=== PATIENT | female | born 1935 | race Caucasian/White ===

== ENCOUNTER 2022-08-19 10:41 | Outpatient (CLI) | payer MEDICARE, BC, SELFPAY ==
[2022-08-19 11:02] LABS: Albumin* 4.9 g/dL (3.3-5.0); Chloride* 116 mmol/L (96-114)
[2022-08-19 11:03] LABS: Potassium* 5.9 mmol/L (3.6-5.1); Sodium* 142 mmol/L (135-149)
[2022-08-19 11:05] LABS: Bilirubin Total* 0.6 mg/dL (0.1-1.5); Carbon Dioxide* 15 mmol/L (20-32); Cholesterol* 141 mg/dL (90-199); Creatinine* 2.3 mg/dL (0.5-1.5); Estimated Glomerular Filt Rate 20 ml/min
[2022-08-19 11:06] LABS: Alanine Aminotransferase* 17 U/L (4-35); Alkaline Phosphatase* 88 U/L (40-150); Aspartate Amino Transferase* 21 U/L (12-35); Blood Urea Nitrogen* 32 mg/dL (7-30); Calcium* 9.5 mg/dL (8.4-10.6); Glucose* 101 mg/dL (60-115); HDL Cholesterol* 70 mg/dL (>=50); LDL Cholesterol Calculated 51 mg/dL (<100); Total Protein* 7.6 g/dL (6.0-8.3); Triglycerides* 100 mg/dL (40-149)
[2022-08-19 12:00] LABS: Microalbumin Creatinine Ratio 300 mg/g (0-30); Microalbumin Urine 64 mg/dL
== END 2022-08-19 10:42 | disposition home or self-care (01) ==
PROVIDERS: PCP Internal Medicine; Visit Provider Internal Medicine
DX: E11.9 Type 2 diabetes mellitus without complications (principal); N18.30 Chronic kidney disease, stage 3 unspecified; E78.5 Hyperlipidemia, unspecified; I10 Essential (primary) hypertension; R07.89 Other chest pain
CPT/HCPCS: 80053; 80061; 82043; 82570

== ENCOUNTER 2022-11-20 10:02 | Outpatient (CLI) | payer MEDICARE, BC, SELFPAY | END 2022-11-20 10:03 | disposition home or self-care (01) | LOC: NFLDREF 11-21 01:33 | PROVIDERS: PCP Internal Medicine; Referring Provider Internal Medicine; Visit Provider Internal Medicine | DX: E11.9 Type 2 diabetes mellitus without complications (principal); N18.30 Chronic kidney disease, stage 3 unspecified | CPT/HCPCS: 80048 ==

== ENCOUNTER 2023-08-14 10:07 | Outpatient (CLI) | payer MEDICARE, BC, SELFPAY ==
--- OUTSIDE RECORDS SUMMARY | 2023-08-20 09:30 | XMS_ITS | Clinical Summary ---
Author Name Unknown Organization [facility] Address [place], [place] [address] Care Team Providers Care Glue Mounter Operator Name Role Phone Aishwarya Hager MD Primary Care Provider [phone]- [phone] Social History Tobacco Use Types Packs/Day Years [...] Influenza for age 65+ 04/10/2023 Care Teams Glue Mounter Operator Relationship Specialty Start Date End Date Aishwarya Hager MD [address] [place] [address] PCP - General Internal Medicine 05/17/20
== END 2023-08-14 10:08 | disposition home or self-care (01) ==
LOC: NFLDREF 08-20 09:26
PROVIDERS: PCP Internal Medicine; Referring Provider Internal Medicine; Visit Provider Internal Medicine
DX: E11.9 Type 2 diabetes mellitus without complications (principal)
CPT/HCPCS: 80053; 80061; 82043; 82570

== ENCOUNTER 2023-08-18 08:45 | Outpatient (CLI) | payer MEDICARE, BC, SELFPAY ==
--- OUTSIDE RECORDS SUMMARY | 2023-08-20 12:54 | XMS_ITS | Clinical Summary ---
Author Name Unknown Organization [employer] [facility] [facility] Address [place], [place] [address] Care Team Providers Care Farm Loan Representative Name Role Phone Aishwarya Hager MD Primary Care Provider [phone]- [phone] Social History Tobacco Use Types Packs/Day Years [...] Influenza for age 65+ 04/10/2023 Care Teams Farm Loan Representative Relationship Specialty Start Date End Date Aishwarya Hager MD [address] [place] [address] PCP - General Internal Medicine 05/17/20
== END 2023-08-18 08:46 | disposition home or self-care (01) ==
LOC: NFLDREF 08-20 12:52
PROVIDERS: PCP Internal Medicine; Referring Provider Internal Medicine; Visit Provider Internal Medicine
DX: E87.5 Hyperkalemia (principal)
CPT/HCPCS: 84132

== ENCOUNTER 2023-08-19 23:11 | Emergency (ER) | payer MEDICARE, BC, SELFPAY ==
[2023-08-19 23:24] VITALS: BP 194/76; PULSE 57; RESP 16; TEMP 36.3; O2SAT 97; BMI 23.8
[2023-08-19 23:52] VITALS: BP 194/81; PULSE 47; RESP 18; O2SAT 99
[2023-08-20] VITALS (14 sets, daily range): BP systolic 178–185; BP diastolic 73–86; PULSE 46–57; RESP 18; O2SAT 98–100
--- NOTE | 2023-08-20 00:04 | ED_ITS ---
HPI - Chest Pain General Time Seen by Provider: 00:04 Date Seen: 08/20/23 Chief Complaint: Chest Pain Stated Complaint: Chest pain Time Seen by Provider: 08/20/23 00:04 Source: patient, RN notes reviewed and old records reviewed Mode of arrival: ambulatory Limitations: no limitations History of Present Illness HPI narrative: Cintia is a very pleasant 87-year-old female with history of stage 3 chronic kidney disease, type 2 diabetes, hyperlipidemia and hypertension who comes to the emergency room for evaluation of chest pain And elevated blood pressure. Patient notes that on ThursdayAugust 14 she was taken off 2 separate medications because of an elevated potassium of 6.1. She was not seen by a physician at that time but was notified by a nurse in our system. On August 18 she was supposed to follow-up with a recheck of her blood work at which time her potassium was improved. Patient notes that ThursdayAugust 18 was a good day and she states that she had felt better. Previous to that she notes that she was not feeling very well with a foggy feeling fine. However last evening ThursdayAugust 19 she had the onset of intermittent chest discomfort. She describes the pain in the middle of her chest and she describes it as a pinching feeling. She took 3 nitroglycerin tablets at home and it was not until the 3rd tablet that she felt better. She did take her blood pressure after the initial nitroglycerin tablet and it was a systolic around 200. She states that she did have this discomfort while she was in the ER and it lasted about 20 minutes. She does not have that discomfort at this time. Patient denies shortness of breath, headache, abdominal pain nausea or vomiting with this discomfort. She was able to walk in her apartment and the pain did not increase. Pain does not radiate to her back. Upon arrival here the emergency room blood pressure was 190s Patient also describes sudden improvement in her chronic diarrhea. States that she has been using Pepto-Bismol as needed. Also notes that her blood pressure was elevated when she saw Dr. Amado last in June. Medications discontinued include spironolactone and losartan. Patient denies cough cold congestion, recent illness or any trauma. I do ascertain that patient has not recently seen a physician but was contacted by nursing staff on ThursdayAugust 14 in regards to elevated potassium. Visit on August 18 was also just a lab draw with follow-up phone call. Patient has an appointment tomorrow morning at 1020 with her primary MD. Related Data Home Medications Medication Instructions Recorded Confirmed aspirin 81 mg capsule 81 mg PO .3 x Wk 08/19/22 04/23/23 bismuth subsalicylate 525 mg tablet 525 mg PO Q30M PRN 04/23/23 04/23/23 Previous Rx's Medication Instructions Recorded atenolol 25 mg tablet 25 mg PO QDAY #90 tabs 08/19/22 nitroglycerin 0.4 mg sublingual 0.4 mg sublingual Q5M PRN chest 08/19/22 tablet pain #25 tabs simvastatin 20 mg tablet 20 mg PO QHS #90 tabs 08/19/22 isosorbide mononitrate 60 mg 120 mg (2 x 60 mg) PO QDAY #180 08/05/23 tablet,extended release 24 hr tabs Allergies Allergy/AdvReac Type Severity Reaction Status Date / Time Sulfa (Sulfonamide Allergy Intermediate tachycardia Verified 04/23/23 09:24 Antibiotics) sulfamethoxazole Allergy Intermediate tachycardia Verified 04/23/23 09:24 trimethoprim Allergy Intermediate tachycardia Verified 04/23/23 09:24 amlodipine Allergy Mild Cough Verified 04/23/23 09:24 pseudoephedrine Allergy Mild Unknown Verified 04/23/23 09:24 Review of Systems Status of ROS Reports: 10 or more systems reviewed and unremarkable except as noted in History and below Const Denies: fever or chills Eyes Denies: blurry vision ENMT Denies: neck pain or difficulty swallowing Cardio Reports: chest pain; Denies: palpitations or shortness of breath with exertion Resp Denies: shortness of breath or cough GI Denies: abdominal pain, nausea, vomiting or difficulty swallowing Denies: painful urination Musculo Denies: back pain or neck pain PFSH PFSH Surgical History History of total abdominal hysterectomy and bilateral salpingo-oophorectomy (08/22/11) ?Z90.710 - Acquired absence of both cervix and uterus (ICD-10) ?Z90.722 - Acquired absence of ovaries, bilateral (ICD-10) ?Z90.79 - Acquired absence of other genital organ(s) (ICD-10) History of benign breast biopsy (08/22/11) ?Z98.890 - Other specified postprocedural states (ICD-10) History of appendectomy (08/22/11) ?Z90.49 - Acquired absence of other specified parts of digestive tract (ICD- 10) Social History Smoking Status: Never smoker How often do you have a drink containing alcohol: never AUDIT-C Alcohol total score: 0 Non-prescribed substance use: denies use Little interest or pleasure in doing things: not at all Feeling down, depressed, or hopeless: not at all Exam Narrative Exam Narrative: Patient is alert and oriented. I am somewhat challenged with ascertaining the details of this particular ED visit. Patient is somewhat hopping from t oscar's visit to past medical problems and past ER visits. patient is extremely hard of hearing. EOM is full. Face symmetrical. Speech and mentation normal. Heart with a bradycardic rate but normal rhythm. Systolic murmur 3/6 noted. Decreased breath sounds in the right lung base otherwise clear without any crackles. Abdomen soft nontender. No pulsating mass. Lower extremities with 1+ kwabena pheral edema. Pedal pulses are symmetrical and intact. Moving all extremities. Const Vital Signs, click to edit/add: Vital Signs - 24 hr 08/19/23 23:24 08/19/23 23:52 08/20/23 00:00 Temperature 97.3 F L Pulse Rate 47 L 46 L Pulse Rate [Pulse Oximeter] 57 L Respiratory Rate 16 18 Blood Pressure 194/81 H Blood Pressure [Right Upper Arm] 194/76 H Pulse Oximetry 97 99 99 Oxygen Delivery Method Room Air 08/20/23 00:02 08/20/23 00:02 08/20/23 00:15 Temperature Pulse Rate 48 L 48 L 49 L Pulse Rate [Pulse Oximeter] Respiratory Rate Blood Pressure 185/81 H 185/81 H Blood Pressure [Right Upper Arm] Pulse Oximetry 99 99 99 Oxygen Delivery Method 08/20/23 00:22 08/20/23 00:30 08/20/23 00:41 Temperature Pulse Rate 49 L 50 L 47 L Pulse Rate [Pulse Oximeter] Respiratory Rate Blood Pressure 183/74 H 178/75 H Blood Pressure [Right Upper Arm] Pulse Oximetry 98 100 99 Oxygen Delivery Method 08/20/23 00:45 08/20/23 01:00 08/20/23 01:02 Temperature Pulse Rate 47 L 49 L 46 L Pulse Rate [Pulse Oximeter] Respiratory Rate Blood Pressure 178/73 H Blood Pressure [Right Upper Arm] Pulse Oximetry 98 100 98 Oxygen Delivery Method 08/20/23 01:15 08/20/23 01:32 08/20/23 01:45 Temperature Pulse Rate 49 L 57 L 49 L Pulse Rate [Pulse Oximeter] Respiratory Rate Blood Pressure Blood Pressure [Right Upper Arm] Pulse Oximetry 98 98 99 Oxygen Delivery Method 08/20/23 02:15 08/20/23 03:09 Temperature Pulse Rate Pulse Rate [Pulse Oximeter] 56 L Respiratory Rate 18 18 Blood Pressure 184/86 H Blood Pressure [Right Upper Arm] 184/82 H Pulse Oximetry 99 Oxygen Delivery Method Room Air Documenting provider has reviewed patient's vital signs: yes Course Course ED Course: Differential diagnosis includes but is not limited to angina, acute coronary event, anxiety, hypertension, GERD. IV has been placed in labs were drawn. Will order CBC, comprehensive panel, magnesium, troponin, lipase. Chest x-ray An EKG as well. Reevaluation(s) Reevaluation #1: Patient noted to be pain free. EKG is reassuring this time and initial troponin is negative. Note that proBNP is quite elevated with no previous value for comparison. Potassium is normal at 4.7. Creatinine is 2.4 which is slightly increased from previous values of 2-2.1. Blood pressure continues to be elevated and patient is certainly not a candidate for beta-kori. Will use Lasix 40 mg IV while awaiting chest x-ray and 2nd EKG/troponin. Vital Signs Vital signs: Initial Vital Signs Temperature 97.3 F L 08/19/23 23:24 Temperature Source Temporal Artery Scan 08/19/23 23:24 Pulse Rate 57 L 08/19/23 23:24 Respiratory Rate 16 08/19/23 23:24 Blood Pressure 194/76 H 08/19/23 23:24 Blood Pressure Mean 115 H 08/19/23 23:24 Blood Pressure Position Sitting 08/19/23 23:24 Pulse Oximetry 97 08/19/23 23:24 Oxygen Delivery Method Room Air 08/19/23 23:24 Vital Signs Temperature 97.3 F L 08/19/23 23:24 Pulse Rate 57 L 08/19/23 23:24 Respiratory Rate 16 08/19/23 23:24 Blood Pressure 194/76 H 08/19/23 23:24 Pulse Oximetry 97 08/19/23 23:24 Oxygen Delivery Method Room Air 08/19/23 23:24 Temperature 97.3 F L 08/19/23 23:24 Pulse Rate 56 L 08/20/23 03:09 Respiratory Rate 18 08/20/23 03:09 Blood Pressure 184/82 H 08/20/23 03:09 Pulse Oximetry 99 08/20/23 03:09 Oxygen Delivery Method Room Air 08/20/23 03:09 Medications Administered Medications: Discontinued Medications Generic Name Dose Route Start Last Admin Trade Name Moralesq PRN Reason Stop Dose Admin Furosemide 40 mg 08/20/23 00:56 08/20/23 01:09 Furosemide 10 Mg/Ml Inj IVP 08/20/23 00:57 40 mg ONCE ONE Administration MDM - Chest Pain MDM Narrative Medical decision making narrative: 1. New onset congestive heart failure - proBNP is elevated, patient has lower extremity fluid retention and chest x-ray by my read shows increased evidence of pulmonary congestion. Likely secondary to recent discontinuance of spironolactone and losartan As there is no evidence in change of diet or history of NH with negative troponins. Lasix 40 mg IV is given. patient has urinated at least 3 times and blood pressure now 178 systolic. She has no past history of congestive heart failure. I do not see any recent echocardiogram but that would be something that would be recommended. 2. Hypertension - Blood pressures Have been decreasing to 170s and 184 is our last reading after returning from the bathroom. Patient will need some sort of blood pressure control but this will be challenging as she is bradycardic and were not be able to tolerate beta-kori, has history of chronic renal insufficiency and therefore will be very sensitive to fluid status and has recently had hyperkalemia and was taken off both losartan and spironolactone. 3. Chest pain- Patient has had no chest pain since I initially met her. Troponin negative x2 and EKGs are also reassuring. Chest pain likely secondary to increased blood pressures. Last cardiac consultation was in 2019 4. Chronic kidney disease - creatinine is 2.4. repeat creatinine after 40 mg IV Lasix Is 3.0 with our i-STAT machine. Patient is encouraged with fluids tonight. She has been to the bathroom multiple times. 5. Disposition- initial plan was to potentially admit patient overnight for bloo d pressure management and fluid diuresis. However, we have no beds at the [facility]. Thus, patient state in our emergency room. We were able to diurese her although there has been and elevation of her creatinine. Fortunately, no further chest pain while in the emergency room. Patient does not wish to stay overnight and I did tell her we had no beds available here. I did consider keeping her in the emergency room but she does have follow-up appoint with her primary MD tomorrow. Thus in the ED we did a cardiac rule out, gave 1 dose of IV Lasix, and check lab values. Patient will need to follow-up tomorrow with her primary MD for recheck of creatinine, blood pressure management And scheduling of outpatient echocardiogram. Medical Records Data Attestation: I reviewed the patient's medical records. Lab Data Attestation: I reviewed the patient's lab results. Labs: Lab Results 08/19/23 08/20/23 08/20/23 Range/Units 23:45 00:00 01:51 WBC 5.66 (4.50-11.00) K/uL RBC 3.28 L (4.00-5.20) m/uL Hgb 10.1 L (12.0-16.0) gm/dL Hct 31.2 L (33.0-51.0) % MCV 95 (80-100) fL MCH 31 (26-34) pg MCHC 32 (32-36) gm/dL RDW Coeff of Tyra 13.6 (11.5-15.5) % Plt Count 185 (140-440) K/uL Neut % (Auto) 56.5 (42.0-72.0) % Lymph % (Auto) 30.7 (20-44) % [place] % (Auto) 7.8 (0.0-11.0) % Eos % (Auto) 3.9 (0.0-7.0) % Baso % (Auto) 1.1 (0.0-3.0) % Neut # (Auto) 3.20 (1.7-7.0) K/uL Lymph # (Auto) 1.74 (0.90-2.90) K/uL [place] # (Auto) 0.40 (0.00-0.90) K/UL Eos # (Auto) 0.22 (0.00-0.50) K/uL Baso # (Auto) 0.06 (0.00-0.30) K/uL Abs Immat Gran (auto) 0.00 (0.00-0.30) K/uL Imm/Tot Granulo (auto) 0.0 % Sodium 141 (135-149) mmol/L Potassium 4.7 (3.6-5.1) mmol/L Chloride 113 (96-114) mmol/L Carbon Dioxide 16 L (20-32) mmol/L Anion Gap 12 (7-15) mEq/L BUN 41 H (7-30) mg/dL Creatinine 2.4 H (0.5-1.5) mg/dL Estimated Creat Clear 13.55 Estimated GFR 19 ml/min Glucose 144 H (60-115) mg/dL Calcium 8.5 (8.4-10.6) mg/dL Magnesium 1.6 (1.5-2.6) mg/dL Total Bilirubin 0.5 (0.1-1.5) mg/dL AST 25 (12-35) U/L ALT 21 (4-35) U/L Alkaline Phosphatase 79 (40-150) U/L NT-Pro-B Natriuret Pep 1910 pg/mL Total Protein 7.4 (6.0-8.3) g/dL Albumin 4.4 (3.3-5.0) g/dL Lipase 289 (23-300) U/L POC Creatinine (0.6-1.3) mg/dl POC Troponin I 0.01 0.01 (0.01-0.04) ng/ml 08/20/23 Range/Units 02:00 WBC (4.50-11.00) K/uL RBC (4.00-5.20) m/uL Hgb (12.0-16.0) gm/dL Hct (33.0-51.0) % MCV (80-100) fL MCH (26-34) pg MCHC (32-36) gm/dL RDW Coeff of Tyra (11.5-15.5) % Plt Count (140-440) K/uL Neut % (Auto) (42.0-72.0) % Lymph % (Auto) (20-44) % [place] % (Auto) (0.0-11.0) % Eos % (Auto) (0.0-7.0) % Baso % (Auto) (0.0-3.0) % Neut # (Auto) (1.7-7.0) K/uL Lymph # (Auto) (0.90-2.90) K/uL [place] # (Auto) (0.00-0.90) K/UL Eos # (Auto) (0.00-0.50) K/uL Baso # (Auto) (0.00-0.30) K/uL Abs Immat Gran (auto) (0.00-0.30) K/uL Imm/Tot Granulo (auto) % Sodium (135-149) mmol/L Potassium (3.6-5.1) mmol/L Chloride (96-114) mmol/L Carbon Dioxide (20-32) mmol/L Anion Gap (7-15) mEq/L BUN (7-30) mg/dL Creatinine (0.5-1.5) mg/dL Estimated Creat Clear Estimated GFR ml/min Glucose (60-115) mg/dL Calcium (8.4-10.6) mg/dL Magnesium (1.5-2.6) mg/dL Total Bilirubin (0.1-1.5) mg/dL AST (12-35) U/L ALT (4-35) U/L Alkaline Phosphatase (40-150) U/L NT-Pro-B Natriuret Pep pg/mL Total Protein (6.0-8.3) g/dL Albumin (3.3-5.0) g/dL Lipase (23-300) U/L POC Creatinine 3.0 H (0.6-1.3) mg/dl POC Troponin I (0.01-0.04) ng/ml Imaging Data Chest x-ray: Attestation: I have reviewed the pertinent imaging results. My impression: Increased lung markings consistent with congestive heart failure. Radiologist's impression: Cardiovascular and mediastinum: Cardiomegaly with central pulmonary vascular congestion suggesting the possibility of acute CHF. Lungs and pleural space: Lungs are clear. No sign of infiltrate or mass. No sign of pleural effusion. No pneumothorax. Bones and soft tissues: No acute findings. ECG Data Attestation: I personally reviewed and interpreted this ECG as follows: ECG interpretation date: 08/20/23 Interpretation: EKG by my read shows sinus bradycardia at a rate of 52. I do not note any acute ST or T-wave changes. 1st degree AV block. QT intervals normal. Second EKG by my read shows sinus bradycardia at a rate Unchanged from 1st EKG. I do not have previous EKG available at this time. However looking back at previous visits to the clinic patient has had bradycardia consistent with what we are finding here tonfrancy. Discharge Plan Discharge Clinical Impression: New onset of congestive heart failure Hypertension Qualifiers: Hypertension type: unspecified Qualified Code(s): I10 - Essential (primary) h ypertension Chest pain Qualifiers: Chest pain type: unspecified Qualified Code(s): R07.9 - Chest pain, unspecified Chronic renal failure (CRF), stage 3 (moderate) Qualifiers: Chronic kidney disease stage 3 subtype: unspecified whether 3a or 3b Qualified Code(s): N18.30 - Chronic kidney disease, stage 3 unspecified Patient Disposition: Home, Self-Care Condition: Improved Additional Instructions: tonight your given a medication called Lasix to help with mild fluid overload. Unfortunately, this medication can be hard on your kidneys And he will need further evaluation with an echocardiogram. Follow-up with your primary doctor as scheduled for tomorrow morning at 1020. You will need to be set up for outpatient echocardiogram and will likely need further medications for the control of elevated blood pressure. Fortunately there was no evidence of a heart attack tonight. Your potassium is now normal at 4.7. Your creatinine continues to be elevated at 2.4. I will do my best to contact Dr. Hager tomorrow morning before I leave after my shift. I will fill her in on your visit here los. Return to the emergency room for chest pain, worsening symptoms and as needed. Prescriptions: No Action aspirin 81 mg capsule 81 mg PO .3 x Wk atenolol 25 mg tablet 25 mg PO QDAY Qty: 90 3RF simvastatin 20 mg tablet 20 mg PO QHS Qty: 90 3RF nitroglycerin 0.4 mg tablet, sublingual 0.4 mg sublingual Q5M PRN (Reason: chest pain) Qty: 25 6RF Rx Instructions: do not exceed 3 doses per episode bismuth subsalicylate 525 mg tablet 525 mg PO Q30M PRN Rx Instructions: do not exceed 8 doses in a 24 hour period isosorbide mononitrate 60 mg tablet extended release 24 hr 120 mg PO QDAY Qty: 180 0RF Follow Up/Referrals: Aishwarya Hager MD [Primary Care Provider] - Stand Alone Forms: [facility] Info Instructions
[2023-08-20 00:32] LABS: Basophils Absolute Auto 0.06 K/uL (0.00-0.30); Basophils Percent Auto 1.1 % (0.0-3.0); Eosinophils Absolute Auto 0.22 K/uL (0.00-0.50); Eosinophils Percent Auto 3.9 % (0.0-7.0); Hematocrit 31.2 % (33.0-51.0); Hemoglobin* 10.1 gm/dL (12.0-16.0); Lymphocytes Absolute Auto 1.74 K/uL (0.90-2.90); Lymphocytes Percent Auto 30.7 % (20-44); Mean Corpuscular HGB Conc 32 gm/dL (32-36); Mean Corpuscular Hemoglobin 31 pg (26-34); Mean Corpuscular Volume 95 fL (80-100); Monocytes Percent Auto 7.8 % (0.0-11.0); Neutrophils Percent Auto 56.5 % (42.0-72.0); Platelet Count* 185 K/uL (140-440); RDW Coefficient of Variation % 13.6 % (11.5-15.5); Red Blood Count 3.28 m/uL (4.00-5.20); White Blood Count* 5.66 K/uL (4.50-11.00)
[2023-08-20 00:35] LABS: Albumin* 4.4 g/dL (3.3-5.0); Chloride* 113 mmol/L (96-114)
--- OUTSIDE RECORDS SUMMARY | 2023-08-20 00:35 | XMS_ITS | Clinical Summary ---
Author Name Unknown Organization [facility] [facility] Address [place], [place] [address] Care Team Providers Care Presentation Manager Name Role Phone Aishwarya Hager MD Primary Care Provider [phone]- [phone] Social History Tobacco Use Types Packs/Day Years Used Date Smoking Tobacco: Never Assessed Social Connections Answer Date Recorded Frequency of Communication with Friends and Fami ly Not on file 08/10/2021 Financial Resource Strain Answer Date R ecorded Difficulty of Paying Living Expenses Not on file 08/10/2021 Difficulty of Paying Living Expenses Not on file 08/10/2021 Sex and Gender Information Value Date Recorded Sex Assigned at Not on file Gender Identity Not on file Sexual Orientation Not on file Last Filed Vital Signs Vital Sign Reading Time Taken Comments Blood Pressure 148/70 04/26/2021 4:02 PM CDT Pulse 65 04/26/2021 4:02 PM CDT Temperature - - Respiratory Rate 14 04/26/2021 4:02 PM CDT Oxygen Saturation - - Inhaled Oxygen Concentration - - Weight 75.8 kg (167 lb) 04/26/2021 4:02 PM CDT Height - - Body Mass Index - - Plan of Treatment Health Maintenance Due Date Last Done Comments Tdap 1948 Depression screening for age 12+ 1949 BMI (ht and wt on same day) for age 18+ 11/30/1955 Tetanus booster 1957 Zoster (shingles) series for age 50+ (1 of 2) 11/30/1987 DEXA/DXA scan for age 65+ 2002 Medicare Wellness for age 65+ 2002 Pneumococcal series for age 65+ (1 of 1 - PCV) 2002 COVID-19 vaccine series ( season) 2023 11/06/2020, 10/16/2020 Influenza for age 65+ 04/10/2023 Care Teams Presentation Manager Relationship Specialty Start Date End Date Aishwarya Hager MD [address] [place] [address] PCP - General Internal Medicine 05/17/20
[2023-08-20 00:36] LABS: Potassium* 4.7 mmol/L (3.6-5.1); Sodium* 141 mmol/L (135-149)
[2023-08-20 00:38] LABS: Alanine Aminotransferase* 21 U/L (4-35); Alkaline Phosphatase* 79 U/L (40-150); Anion Gap 12 mEq/L (7-15); Aspartate Amino Transferase* 25 U/L (12-35); Bilirubin Total* 0.5 mg/dL (0.1-1.5); Blood Urea Nitrogen* 41 mg/dL (7-30); Carbon Dioxide* 16 mmol/L (20-32); Creatinine* 2.4 mg/dL (0.5-1.5); Est. Creatinine Clearance* 13.55; Estimated Glomerular Filt Rate 19 ml/min; Glucose* 144 mg/dL (60-115); Lipase* 289 U/L (23-300); Total Protein* 7.4 g/dL (6.0-8.3)
[2023-08-20 00:39] LABS: Calcium* 8.5 mg/dL (8.4-10.6); Magnesium* 1.6 mg/dL (1.5-2.6)
[2023-08-20 00:45] LABS: Slide Review Reflex No
[2023-08-20 00:48] LABS: NT Pro B Type NatriureticPept* 1910 pg/mL
--- NOTE | 2023-08-20 00:49 | CRLHL7_ITS ---
For Patients: As a result of the Century Cures Act, medical imaging exams and procedure reports are released immediately into your electronic medical record. You may view this report before your referring provider. If you have questions, please contact your health care provider. Indication: Chest pain. Technique: Chest 1 view. Comparison: 08/09/2017. Findings/Impression: Cardiovascular and mediastinum: Cardiomegaly with central pulmonary vascular congestion suggesting the possibility of acute CHF. Lungs and pleural space: Lungs are clear. No sign of infiltrate or mass. No sign of pleural effusion. No pneumothorax. Bones and soft tissues: No acute findings. Dictated by Miguel Mckeon MD @ 08/20/2023 3:20:58 AM (Electronically Signed)
[2023-08-20] MEDS: FUROSEMIDE 10 MG/ML inj 40 MG IVP (01:09)
[2023-08-20 02:02] LABS: Troponin, Point-of-Care* 0.01 ng/ml (0.01-0.04)
[2023-08-20 02:04] LABS: Troponin, Point-of-Care* 0.01 ng/ml (0.01-0.04)
--- NOTE | 2023-08-20 03:28 | ED.NURSE ---
patient up to bathroom x4 post IV lasix dose.
== END 2023-08-20 03:31 | disposition home or self-care (01) ==
PROVIDERS: Emergency Provider Family Medicine; PCP Internal Medicine
DX: I50.9 Heart failure, unspecified (principal); N18.30 Chronic kidney disease, stage 3 unspecified; I10 Essential (primary) hypertension
CPT/HCPCS: 36415; 71045; 80053; 82565; 83690; 83735; 83880; 84484; 85025; 85379; 96374; 99284; J1940

== ENCOUNTER 2023-09-17 09:56 | Outpatient (CLI) | payer MEDICARE, BC, SELFPAY ==
--- OUTSIDE RECORDS SUMMARY | 2023-09-18 05:57 | XMS_ITS | Clinical Summary ---
Author Name Unknown Organization [facility] Address [place], [place] [address] Care Team Providers Care Electronics Parts Sales Representative Name Role Phone Aishwarya Hager MD Primary Care Provider [phone]- [phone] Social History Tobacco Use Types Packs/Day Years [...] Influenza for age 65+ 04/10/2023 Care Teams Electronics Parts Sales Representative Relationship Specialty Start Date End Date Aishwarya Hager MD [address] [place] [address] PCP - General Internal Medicine 05/17/20
== END 2023-09-17 09:57 | disposition home or self-care (01) ==
LOC: NFLDREF 09-18 05:55
PROVIDERS: PCP Internal Medicine; Referring Provider Internal Medicine; Visit Provider Internal Medicine
DX: I10 Essential (primary) hypertension (principal)
CPT/HCPCS: 80048

== ENCOUNTER 2023-09-21 13:01 | Outpatient (CLI) | payer MEDICARE, BC, SELFPAY ==
--- OUTSIDE RECORDS SUMMARY | 2023-09-21 13:03 | XMS_ITS | Clinical Summary ---
Author Name Unknown Organization [facility] Address [place], [place] [address] Care Team Providers Care Otr Driver Name Role Phone Aishwarya Hager MD Primary Care Provider [phone]- [phone] Social History Tobacco Use Types Packs/Day Years [...] Influenza for age 65+ 04/10/2023 Care Teams Otr Driver Relationship Specialty Start Date End Date Aishwarya Hager MD [address] [place] [address] PCP - General Internal Medicine 05/17/20
== END 2023-09-21 13:02 | disposition home or self-care (01) ==
LOC: RAD 13:02
PROVIDERS: PCP Internal Medicine; Visit Provider Internal Medicine
DX: I10 Essential (primary) hypertension (principal); I34.0 Nonrheumatic mitral (valve) insufficiency; I51.7 Cardiomegaly
CPT/HCPCS: 93306

== ENCOUNTER 2023-10-16 10:54 | Outpatient (CLI) | payer MEDICARE, BC, SELFPAY ==
--- NOTE | 2023-10-16 11:15 | US_ITS ---
Patient: KORY GUZMAN Facility:?[facility] Patient ID:?[id number] Site Patient ID:?[id number]. Site :?[id number] Study:?US-Abdomen Renal DUPLEX-10/16/2023 1:21:54 PM Ordering Physician:DENY VUONG Final Report: HISTORY: HTN, TYPE2 DIABETIC, CKD STAGE4 TECHNIQUE: Grayscale ultrasound examination of the kidneys with 2D and spectral analysis and color Doppler interrogation of the renal vessels. COMPARISON: None FINDINGS: Right kidney measures 9.0 cm in length and left kidney measures 7.9 cm in length. Renal cortex is thin bilaterally measuring 9 millimeters on the right and 6 millimeters on the left. Left hydronephrosis noted. Aortic peak systolic velocity 76.4 cm/second. Renal artery peak systolic velocities measure up to 102 cm/second on the right and 109.5 cm on the left. Renal artery ratio 1.3 on the right and 1.4 on the left. Renal vein is patent bilaterally. Resistive indices are upper limits of normal bilaterally. IMPRESSION: No evidence of significant renal artery stenosis. Left hydronephrosis is present. Chronic intrinsic renal disease. Dictated by Blaze Mason MD @ 10/19/2023 11:25:16 AM Signed by:?Blaze Mason MD @10/19/2023 11:25:16 AM (Electronic Signature)
== END 2023-10-16 10:55 | disposition home or self-care (01) ==
LOC: US 10:55
PROVIDERS: PCP Internal Medicine; Visit Provider Internal Medicine Nephrology
DX: N18.4 Chronic kidney disease, stage 4 (severe) (principal); I10 Essential (primary) hypertension
CPT/HCPCS: 76775; 93975

== ENCOUNTER 2023-11-05 09:26 | Outpatient (CLI) | payer MEDICARE, BC, SELFPAY | END 2023-11-05 09:27 | disposition home or self-care (01) | LOC: NFLDREF 11-06 11:28 | PROVIDERS: PCP Internal Medicine; Referring Provider Internal Medicine; Visit Provider Internal Medicine Nephrology | DX: I10 Essential (primary) hypertension (principal); I50.9 Heart failure, unspecified; N18.4 Chronic kidney disease, stage 4 (severe); E11.9 Type 2 diabetes mellitus without complications | CPT/HCPCS: 80069; 82043; 82570; 82607; 82728; 82784; 83520; 83540; 83550; 84155; 84165; 86334; 87086; 87186 ==

== ENCOUNTER 2023-11-24 12:19 | Emergency (ER) | payer MEDICARE, BC, SELFPAY ==
[2023-11-24 12:23] VITALS: BP 191/79; PULSE 65; RESP 18; TEMP 36.9; O2SAT 99; BMI 27.6
--- NOTE | 2023-11-24 12:41 | ED_ITS ---
HPI - General Adult General Chief complaint: Extremity Pain/Injury, Lower Stated complaint: L foot swollen Time Seen by Provider: 11/24/23 12:36 History of Present Illness HPI narrative: Left lower leg swelling pt noticed swelling last night., some pain with ambulation, some swelling noted to right lower leg as well 87-year-old woman presenting to the emergency department with concern of left leg pain and some swelling beginning last night. Has been having some discomfo rt in the left knee. Acknowledges arthritis. Yesterday though thought she was a little short of breath though she notes herself to hospital quite a bit when she was I believe going to get the mail. Then in the evening noting more swelling in left lower leg. Currently not short of breath. No chest pain. She does not recall any trauma. Concern is that she may have a DVT. She does take low-dose aspirin every other day. Also expresses concern that blood pressures have been elevated lately noting measurements at home 170s over 70s. Had discussed management of this with her primary care provider. She notes that she arrived and dressed today because it was hard to get her pants over her legs. Ready for imaging. Related Data Home Medications Medication Instructions Recorded Confirmed aspirin 81 mg capsule 81 mg PO .3 x Wk 08/19/22 11/24/23 spironolactone 25 mg tablet 25 mg PO QHS 09/21/23 11/24/23 Previous Rx's Medication Instructions Recorded nitroglycerin 0.4 mg sublingual 0.4 mg sublingual Q5M PRN chest 08/19/22 tablet pain #25 tabs simvastatin 20 mg tablet 20 mg PO QHS #90 tabs 09/07/23 losartan 100 mg tablet 100 mg PO QDAY #90 tabs 10/20/23 atenolol 25 mg tablet 25 mg PO QDAY #90 tabs 11/03/23 isosorbide mononitrate 60 mg 120 mg (2 x 60 mg) PO QDAY #180 11/03/23 tablet,extended release 24 hr tabs Allergies Allergy/AdvReac Type Severity Reaction Status Date / Time Sulfa (Sulfonamide Allergy Intermediate tachycardia Verified 11/24/23 12:27 Antibiotics) sulfamethoxazole Allergy Intermediate tachycardia Verified 11/24/23 12:27 trimethoprim Allergy Intermediate tachycardia Verified 11/24/23 12:27 amlodipine Allergy Mild Cough Verified 11/24/23 12:27 pseudoephedrine Allergy Mild Unknown Verified 11/24/23 12:27 Review of Systems Status of ROS: Reports: 6 or more systems reviewed and unremarkable except as noted in History and below PFSH PFSH Surgical History History of total abdominal hysterectomy and bilateral salpingo-oophorectomy (08/22/11) ?Z90.710 - Acquired absence of both cervix and uterus (ICD-10) ?Z90.722 - Acquired absence of ovaries, bilateral (ICD-10) ?Z90.79 - Acquired absence of other genital organ(s) (ICD-10) History of benign breast biopsy (08/22/11) ?Z98.890 - Other specified postprocedural states (ICD-10) History of appendectomy (08/22/11) ?Z90.49 - Acquired absence of other specified parts of digestive tract (ICD- 10) Social History What is your current living situation?: I presently have a place to live Problems where you live: declined to answer In the past 12 months, utilities in danger of being shut off: no In past 12 months, lack of transportation kept you from medical appts, meetings, work, or getting things needed for daily living: no In the past 12 mos, have been you worried that your food would run out before you had money to buy more?: never true In the past 12 mos, the food you bought just didn't last and you didn't have money to buy more?: never true Smoking Status: Never smoker How often do you have a drink containing alcohol: never AUDIT-C Alcohol total score: 0 Non-prescribed substance use: denies use How often does anyone, including family, friends and others, physically hurt you : never How often does anyone, including family, friends and others, insult or talk down to you: never How often does anyone, including family, friends and others, threaten you with harm: never How often does anyone, including family, friends and others, scream or curse at you: never Little interest or pleasure in doing things: not at all Feeling down, depressed, or hopeless: not at all Exam Narrative: Exam Narrative: Very pleasant and hard of hearing. Breathing easily. Lungs are clear. Heart in regular rate and rhythm. Lower extremities with mild dependent edema left greater than right. Subtly pitting. Negative Homans. She reports some discomfort to palpation however in the upper calf/anti-geniculate fossa. I do not appreciate an effusion in the knee. No erythema. Const: Vital Signs, click to edit/add: Vital Signs - 24 hr 11/24/23 12:23 Temperature 98.5 F Pulse Rate [Right] 65 Respiratory Rate 18 Blood Pressure [Ri ght Upper Arm] 191/79 H Pulse Oximetry 99 Oxygen Delivery Me thod Room Air Documenting provider has reviewed patient's vital signs: yes Course Vital Signs Vital signs: Initial Vital Signs Temperature 98.5 F 11/24/23 12:23 Temperature Source Temporal Artery Scan 11/24/23 12:23 Pulse Rate 65 11/24/23 12:23 Respiratory Rate 18 11/24/23 12:23 Blood Pressure 191/79 H 11/24/23 12:23 Blood Pressure Mean 116 H 11/24/23 12:23 Blood Pressure Position Sitting 11/24/23 12:23 Pulse Oximetry 99 11/24/23 12:23 Oxygen Delivery Method Room Air 11/24/23 12:23 Vital Signs Temperature 98.5 F 11/24/23 12:23 Pulse Rate 65 11/24/23 12:23 Respiratory Rate 18 11/24/23 12:23 Blood Pressure 191/79 H 11/24/23 12:23 Pulse Oximetry 99 11/24/23 12:23 Oxygen Delivery Method Room Air 11/24/23 12:23 Temperature 98.5 F 11/24/23 12:23 Pulse Rate 65 11/24/23 12:23 Respiratory Rate 18 11/24/23 12:23 Blood Pressure 191/79 H 11/24/23 12:23 Pulse Oximetry 99 11/24/23 12:23 Oxygen Delivery Method Room Air 11/24/23 12:23 Medical Decision Making MDM Narrative Medical decision making narrative: She does not recount any trauma. Would appear that this could be arthritic pain although this seems inconsistent. No evidence of gout. Could be leaking or ruptured Bey's cyst. Will need to evaluate though for DVT. Given some recent shortness of breath though seems to have resolved at this time, if ultrasound positive would consider CT imaging of the chest. Concern though also of kidney disease on review of record might limit contrast. Discussed findings of ultrasound with under baster. Due to patient concern of bilateral involvement both legs were scanned. No Bey cyst. No DVT. Radiology over-read as below :?[id number] Study:?US-Extremity Bilateral LEV BILATERAL-11/24/2023 2:11:04 PM Ordering Physician:BLAZE ZAPIEN M.D. Final Report: INDICATION: Leg pain and swelling. TECHNIQUE: Ultrasound venous duplex bilateral lower extremity. Compression venous exam was performed using camacho-scale, color Doppler, and spectral Doppler analysis. COMPARISON: None. FINDINGS: Deep veins: Sonographic imaging demonstrates the bilateral common femoral, deep femoral, superficial femoral, popliteal, posterior tibial veins to be fully compressible with normal color Doppler blood flow. Superficial veins: Greater saphenous vein is fully compressible. No popliteal cyst. IMPRESSION: Normal bilateral lower extremity venous ultrasound, no sign of deep venous thrombosis. There may be some osteoarthritic change contributing to symptoms here. There may be a small related effusion in the knees. Does not appear to have any respiratory difficulty here today. I think would be safe for outpatient evaluation for peripheral edema. This might include echocardiogram, evaluation for pulmonary hypertension. This could simply be venous insufficiency contribut ing to mild swelling demonstrated here as well. See patient discharge plan further discussion Medical Records Medical records reviewed: Yes I reviewed the patient's medical records Discharge Plan Discharge Clinical Impression: Lower extremity edema, Elevated blood pressure reading Patient Disposition: Home w/ Parent or Adult Condition: Stable Additional Instructions: I would picker packer some compression stockings. Would wear these during the day in the short term and elevate your legs as discussed when at rest. Please schedule follow-up with your primary care provider to review your visit today and reassess your blood pressure and you might need broader workup to explain the lower extremity edema that you are experiencing here the last 24 hours. Return to the emergency department for persistent and increasing shortness of breath, chest pain, marked increase in lower extremity swelling/discomfort. Prescriptions: No Action aspirin 81 mg capsule 81 mg PO .3 x Wk nitroglycerin 0.4 mg tablet, sublingual 0.4 mg sublingual Q5M PRN (Reason: chest pain) Qty: 25 6RF Rx Instructions: do not exceed 3 doses per episode spironolactone 25 mg tablet 25 mg PO QHS simvastatin 20 mg tablet 20 mg PO QHS Qty: 90 3RF losartan 100 mg tablet 100 mg PO QDAY Qty: 90 3RF isosorbide mononitrate 60 mg tablet extended release 24 hr 120 mg PO QDAY Qty: 180 2RF atenolol 25 mg tablet 25 mg PO QDAY Qty: 90 2RF Follow Up/Referrals: Aishwarya Hager MD [Primary Care Provider] - Stand Alone Forms: [facility] Info Instructions
--- NOTE | 2023-11-24 12:51 | US_ITS ---
Patient: KORY GUZMAN Facility:?[facility] [place] [facility] Patient ID:?[id number] Site Patient ID:?[id number]. Site :?[id number] Study:?US-Extremity Bilateral LEV BILATERAL-11/24/2023 2:11:04 PM Ordering Physician:?FELICITY RICHARDS M.D. Final Report: INDICATION: Leg pain and swelling. TECHNIQUE: Ultrasound venous duplex bilateral lower extremity. Compression venous exam was performed using camacho-scale, color Doppler, and spectral Doppler analysis. COMPARISON: None. FINDINGS: Deep veins: Sonographic imaging demonstrates the bilateral common femoral, deep femoral, superficial femoral, popliteal, posterior tibial veins to be fully compressible with normal color Doppler blood flow. Superficial veins: Greater saphenous vein is fully compressible. No popliteal cyst. IMPRESSION: Normal bilateral lower extremity venous ultrasound, no sign of deep venous thrombosis. Dictated by Dusty Torres MD @ 11/24/2023 2:15:08 PM Signed by:?Dusty Torres MD @11/24/2023 2:15:08 PM (Electronic Signature)
--- OUTSIDE RECORDS SUMMARY | 2023-11-24 12:56 | XMS_ITS ---
Author Name Unknown Organization [facility] Address [address] [place] [address] Care Team Providers Care Parks And Recreation Manager Name Role Phone Unavailable Unavailable Unavailable Surgery Details Not on file Complications Check Surgery Details section. Procedure Estimated Blood Loss Check Surgery Details section. Procedure Findings Check Surgery Details section. Procedure Specimens Taken Check Surgery Details section.
--- OUTSIDE RECORDS SUMMARY | 2023-11-24 12:56 | XMS_ITS | Clinical Summary ---
Author Name Unknown Organization [facility] Address [address] [place] [address] Care Team Providers Care Handicraft Or Hobby Shop Manager Name Role Phone Elsewhere, Pcp Primary Care Provider Unavailabl e Source Comments Patient records contain information from all sites at [facility]. For routine questions regarding patient records, call [phone] during business hours, M-F 8:00 AM - 5:00 PM Central Time. Record requests for emergency care only can be directed to [phone] at any time.[facility] Allergies Active Allergy Reactions Criticality Noted Date Comments Amlodipine Cough 09/22/2023 Sulfa (Sulfonamide Antibiotics) Rash 09/10 Medications Medication Sig Dispensed Refills Start Date End Date Status spironolactone (ALDACTONE) 25 mg tablet Take 1 tablet (25 mg total) by mouth daily. 09/22/2023 09/21/2024 Active simvastatin (ZOCOR) 20 mg tablet Take 1 tablet (20 mg total) by mouth at bedtime. 09/22/2023 09/21/2024 Active isosorbide mononitrate (IMDUR) 120 mg 24 hr tablet Take 1 tablet (120 mg total) by mouth daily. 09/22/2023 09/21/2024 Active atenoloL (TENORMIN) 50 mg tablet Take 0.5 tablets (25 mg total) by mouth daily. 09/22/2023 09/21/2024 Active losartan (COZAAR) 100 mg tablet Take 1 tablet (100 mg total) by mouth daily. 09/25/2023 09/24/2024 Active Active Problems Problem Noted Date Diagnosed Date Chronic Kidney Disease Stage 4 Glomerular Filtration Rate 15-29 09/22/2023 Diabetes Mellitus Type 2 09/22/2023 Hyperparathyroidism Renal Secondary 09/22/2023 Anemia Of Chronic Renal Failure 09/22/2023 Hypertension And Chronic Kidney Disease Stage 4 09/22/2023 Hyperkalemia 09/22/2023 Chronic Metabolic Acidosis 09/22/2023 Encounters Date Type Department Care Team Description 11/10/2023 2:30 PM CDT External Outreach Division of Nephrology and Hypertension in [place], [place] [address] [place] [address] Jasper Aguilar Jr., D.OMichael Chronic Kidney Disease Stage 4 Glomerular Filtration Rate 15-29 (HCC) (Primary Dx); Hypertension And Chronic Kidney Disease Stage 4 (HCC); Diabetes Mellitus Type 2 (HCC); Anemia Of Chronic Renal Failure; Chronic Metabolic Acidosis; Hyperparathyroidism Renal Secondary (HCC) 09/25/2023 Orders Only Division of Nephrology and Hypertension in [place], [place] [address] [place] [address] Jasper Aguilar Jr., D.OMichael 09/22/2023 3:30 PM HAND GLASS CUTTER External Outreach Division of Nephrology and Hypertension in [place], [place] [address] [place] [address] Jasper Aguilar Jr., D.OMichael Diabetes Mellitus Type 2 (HCC) (Primary Dx); Chronic Kidney Disease Stage 4 Glomerular Filtration Rate 15-29 (HCC); Hypertension And Chronic Kidney Disease Stage 4 (HCC); Hyperparathyroidism Renal Secondary (HCC); Anemia Of Chronic Renal Failure; Hyperkalemia; Chronic Metabolic Acidosis from Last 3 Months Immunizations Name Administration Dates Next Due H1N1 All Forms 08/21/2009 Social History Tobacco Use Types Packs/Day Years Used Date Smoking Tobacco: Never Assessed Nutrition Answer Date Recorded Nutrition: EVOO Fat Source Unknown 09/11 Nutrition: Servings of Fruits/Vegetables per Day Not on file 09/11/2023 Dental Answer Date Recorded Dental: Regular Dentist Unknown 09/11/19 Sex and Gender Information Value Date Recorded Sex Assigned at Not on file Gender Identity Not on file Sexual Orientation Not on file Last Filed Vital Signs Vital Sign Reading Time Taken Comments Blood Pressure 150/72 11/10/2023 3:05 PM CDT Pulse 72 11/10/2023 3:05 PM CDT Temperature - - Respiratory Rate - - Oxygen Saturation - - Inhaled Oxygen Concentration - - Weight 72.6 kg (160 lb 0.9 oz) 11/10/2023 2:41 P M CDT Height 157.4 cm (5' 1.97) 11/10/2023 2:41 PM CD T Body Mass Index 29.3 11/10/2023 2:41 PM CDT Plan of Treatment Health Maintenance Due Date Last Done Comments Creatinine Level (Kidney Fun ction Test) 1935 Diabetic Office Visit with F oot Exam 1935 Dilated Eye Exam 1935 Hemoglobin A1C 1935 Potassium Level 1935 Sodium Level 1935 Urine Albumin 1935 Zoster Vaccines (1 of 2) 11/30/1987 COVID-19 Vaccine (5 - 2022-2 4 season) 2023 06/17/2022, 06/06/2021, 11/06/2020, Additional history exists Depression Screening (Annual PHQ-2) 08/10/2023 Fall Risk Screen (Annual) 08/10/2023 Office Visit for Blood Press ure Check / Re-check 02/09/2024 11/10/2023 DTaP,Tdap,and Td Vaccines (3 - Td or Tdap) 05/15/2033 05/15/2023, 09/08/2011 Pneumococcal vaccine (65+ years) Completed 01/29/2023, 11/08/2014, 01/23/2004 Influenza Vaccine Completed 05/15/2023, , 05/28/2021, Additional history exists Advance Directives For more information, please contact: [phone] Documents on File Type Date Recorded 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 See document viewer. Care Teams Handicraft Or Hobby Shop Manager Relationship Specialty Start Date End Date Elsewhere, Pcp PCP - General 10/11/18
--- OUTSIDE RECORDS SUMMARY | 2023-11-24 12:56 | XMS_ITS | Referral Summary ---
Author Name Unknown Organization [facility] Address [address] [place] [address] Care Team Providers Care Automatic Toe Laster Name Role Phone Elsewhere, Pcp Primary Care Provider Unavailabl e Source Comments Patient records contain information from all sites at [facility]. For routine questions regarding patient records, call [phone] during business hours, M-F 8:00 AM - 5:00 PM Central Time. Record requests for emergency care only can be directed to [phone] at any time.[facility] Encounters Date Type Department Care Team Description 11/10/2023 2:30 PM CDT External Outreach Division of Nephrology and Hypertension in [place], [place] [address] [place] [address] Jasper Aguilar Jr., D.O. Chronic Kidney Disease Stage 4 Glomerular Filtration Rate 15-29 (HCC) (Primary Dx); Hypertension And Chronic Kidney Disease Stage 4 (HCC); Diabetes Mellitus Type 2 (HCC); Anemia Of Chronic Renal Failure; Chronic Metabolic Acidosis; Hyperparathyroidism Renal Secondary (HCC) 09/25/2023 Orders Only Division of Nephrology and Hypertension in [place], [place] [address] [place] [address] Jasper Aguilar Jr., D.O. 09/22/2023 3:30 PM BIG DATA LEAD External Outreach Division of Nephrology and Hypertension in [place], [place] [address] [place] [address] Jasper Aguilar Jr. D.O. Diabetes Mellitus Type 2 (HCC) (Primary Dx); Chronic Kidney Disease Stage 4 Glomerular Filtration Rate 15-29 (HCC); Hypertension And Chronic Kidney Disease Stage 4 (HCC); Hyperparathyroidism Renal Secondary (HCC); Anemia Of Chronic Renal Failure; Hyperkalemia; Chronic Metabolic Acidosis from Last 3 Months Allergies Active Allergy Reactions Criticality Noted Date [...] 09/22/2023 Hyperkalemia 09/22/2023 Chronic Metabolic Acidosis 09/22/2023 Immunizations Name Administration Dates Next Due H1N1 [...] 11/10/2023 2:41 PM CDT Plan of Treatment Not on file Advance Directives For more information, please contact: [phone] Documents on File Type Date Recorded Patient Shelf Stocker Expl anation Advance Directives 06/27/2011 12:00 AM Zahra rainey document. See document viewer. Care Teams Automatic Toe Laster Relationship Specialty Start Date End Date Elsewhere, Pcp PCP - General 10/11/18
--- OUTSIDE RECORDS SUMMARY | 2023-11-24 12:57 | XMS_ITS | Encounter Summary ---
Author Name Unknown Organization [facility] Address [address] [place] [id number] Care Team Providers Care Registered Nurse Step Down Name Role Phone Elsewhere, Pcp Primary Care Provider Unavailabl e Reason for Visit * Appointment Request (Routine) - Closed Specialty Diagnoses / Procedures Referred By Contnina t Referred To Contact Nephrology and Hypertension Referral ID Status Reason Start Date Expiration Date Visits Re quested Visits Authorized [id number] Closed 10/08/2023 10/07/2024 1 1 Encounter Details Date Type Department Care Team (Latest Contact Info) Description 11/10/2023 2:30 PM CDT External Outreach Division of Nephrology and Hypertension in [place], [place] [address] [place] [address] Jasper Aguilar Jr., D.O. 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 - 11/10/2023 2:30 PM CDT Referring Provider: ELSEWHERE, PCP SUBJECTIVE REASON FOR VISIT [place] [facility] Follow-up regards CKD HISTORY OF PRESENT ILLNESS Ms. Martell is a 87 y.o. female who presents with a baseline serum creatinine between 1.9 and 2.4 mg/dL over the past 5 years. I visited with her for the 1st time approximately a month and a halfago, and at that time we were somewhat confused about her home medications. She brought her medications along with her today. Her current regimen is as follows: 1.Isosorbide mononitrate 60 mg orally daily 2. Atenolol 25 mg orally daily 3. Losartan 100 mg orally daily 4.Spironolactone 25 mg orally daily She does check her blood pressure at home but does not recall the numbers. We had reached out to her home clinic from [facility] and found that she had not been theresince 2010!. She feels well in all respects has an excellent appetite. She is wondering about a nighttime cough.It does not seem to occur when she lays flat but only after she gets up to go to the bathroom. She relates that in the past this was much worse and I suspect the team had stopped her lisinopril, and replace this with losartan. Her blood pressure is still above goal target. Note that her serum protein and urine protein electrophoresis did not disclose evidence of a monoclonal protein. She is anemic, and her iron stores are normal. We discussed the anemia related to chronic kidney disease. Her potassium is slightly above normal at 5.3, on the background of her potassium-sparing diuretic and ARB agent. Her daughter accompanied her to the appointment today. The patient is very hard of hearing. No past medical history on file. Current Outpatient Medications: atenoloL (TENORMIN) 50 mg tablet, Take 0.5 tablets (25 mg total) by mouth daily., Disp: , Rfl: isosorbide mononitrate (IMDUR) 120 mg 24 hr tablet, Take 1 tablet (120 mg total) by mouth daily., Disp: , Rfl: losartan (COZAAR) 100 mg tablet, Take 1 tablet (100 mg total) by mouth daily., Disp: , Rfl: simvastatin (ZOCOR) 20 mg tablet, Take 1 tablet (20 mg total) by mouth at bedtime., Disp: , Rfl: spironolactone (ALDACTONE) 25 mg tablet, Take 1 tablet (25 mg total) by mouth daily., Disp: , Rfl: REVIEW OF SYSTEMS All other systems reviewed and are negative. OBJECTIVE BP 150/72 Pulse 72 Ht 157.4 cm Wt 72.6 kg BMI 29.30 kg/m?? PHYSICAL EXAMINATION General: Awake alert oriented HEENT: JANINE, EOMI, Mucous membranes moist, no oral lesions Neck: No Masses, No Bruits Lungs: Clear to ascultation Heart: Regular Rate and Rhythm, No ectopy Murmurs or rubs Abdomen: Soft, Non-tender Extremities: No cyanosis, No clubbing: No edema Neuro: Cranial Nerves intact, Accepting for her being very hard of hearing Gait is antalgic,strength grossly normal Skin: no suspicious lesions identified Psychiatric: Normal affect DIAGNOSTICS Note creatinine 2.1 mg/dL, microalbumin to creatinine ratio 5010 milligrams/gram, hemoglobin A1c ASSESSMENT / PLAN #1 Chronic Kidney Disease Stage 4 Glomerular Filtration Rate 15-29 (HCC) Her nephrotic range proteinuria is concerning. Certainly I suspect her blood pressure to be less well controlled, and I have asked her to keep a log with respect to her blood pressure -see below. Diabetic nephropathy is indeed a possibility but her hemoglobin A1c has been well controlled on diet alone. We will be rechecking her hemoglobin A1c in 3 months. We have ruled out a paraprotein issue, a secondary or primary FSG or membranous lesion is possible,at this juncture however I would not be in favor of immunomodulatory therapy for her. There is no activity of the urinary sediment suggestive of vasculitis. Going forward: We will continue on her losartan 2. We will continue her spironolactone 3. Low-potassium diet 4. I have asked her to check a log of her blood pressure which she should check on a 3-4 time weekly basis and record this and bring to her next visit 5. Goal glycosylated hemoglobin less than 7.5% No NSAIDs or Mcdermott 2 inhibitors Stay well hydrated, with urine less colorful than lemonade #2 Hypertension And Chronic Kidney Disease Stage 4 (HCC) Please see above, I suspect we are under controlling her blood pressure. Her cough could be on the background of the ARB agent. Our next step would be consideration of discontinuation, but this may make her proteinuria much worse. We could consider exchanging her atenolol for Coreg, which would be a good next step. #3 Diabetes Mellitus Type 2 (HCC) We will check hemoglobin A1c at our next visit. 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 #5 Chronic Metabolic Acidosis This is improved, her bicarb is increased from 14-19 we will monitor for now. #6 Hyperparathyroidism Renal Secondary (HCC) Calcium and phosphorus are acceptable repeat PTH in 3 months Total time: 40 minutes Counseling Time: 20 minutes Jasper Aguilar Jr., D.O. documented in this encounter Plan of Treatment Not on file documented as of this encounter Visit Diagnoses Diagnosis Chronic Kidney Disease Stage 4 Glomerular Filtration Rate 15-29 (HCC)- Primary Hypertension And Chronic Kidney Disease Stage 4 (HCC) Diabetes Mellitus Type 2 (HCC) Anemia Of Chronic Renal Failure Chronic Metabolic Acidosis Hyperparathyroidism Renal Secondary (HCC) documented in this encounter Care Teams Registered Nurse Step Down Relationship Specialty Start Date End Date Elsewhere, Pcp PCP - General 10/11/18 documented as of this encounter
--- OUTSIDE RECORDS SUMMARY | 2023-11-24 12:57 | XMS_ITS | Clinical Summary ---
Author Name Unknown Organization [facility] Address [place], [place] [address] Care Team Providers Care Gis Engineer Name Role Phone Aishwarya Hager MD Primary Care Provider [phone] Encounters Date Type Department Care Team Description 09/21/2023 1:00 PM COMPUTER EDUCATION TEACHER Ancillary Procedure [facility] [facility] [address] [place] [address] 09/21/2023 Travel from Last 3 Months Social History Tobacco Use Types Packs/Day Years [...] 1 - PCV) 2002 COVID-19 vaccine series (3 - season) 2023 11/06/2020, 10/16/2020 Influenza for age 65+ 04/10/2024 Procedures Procedure Name Priority Date/Time Associated Diagnosis Comments ECHO TTE COMPLETE WO CONTRAST Routine 09/21/2023 2:00 PM COMPUTER EDUCATION TEACHER Essential hypertension from Last 3 Months Results * ECHO TTE COMPLETE WO CONTRAST (09/21/2023 2:00 PM COMPUTER EDUCATION TEACHER) AORTIC VALVE MEAN PG 6 mmHg EJECTION FRACTION 57 % PEAK TR VELOCITY 2.8 m/s LVEDD 5.3 cm EJECTION FRACTION 60 - 65% Anatomical Region Laterality Modality Ultrasound 09/21/2023 1:18 PM COMPUTER EDUCATION TEACHER Narrative 09/21/2023 4:16 PM COMPUTER EDUCATION TEACHER ECHOCARDIOGRAM CINTIA GUZMAN ? Accession#: ?? [id number] : ?1935 87 years Study Date: ?? 09/21/2023 1:18:10 PM Gender: F ?BP: ? 176/69 mmHg Height: 155.00 cm ?BSA: ?1.67 m? ? ? Weight: 68.00 kg ? Tech: ? MTS ? Referring MD: AISHWARYA HAGER Site: ? [facility] Reading Location: MOBILE OP Patient Location: Outpatient. Procedure: 2D, Color Doppler and Spectral Doppler. Indication for study: Essential hypertension Cardiac Rhythm: Irregular.Study quality: Fair. Final Impressions: 1. Normal LV size, normal wall thickness, normal global systolic function with an estimated EF of 60 - 65%. 2. Sigmoid appearing septum. 3. Right ventricular cavity size is normal, global systolic RV function is normal. 4. The mitral valve is sclerotic, mild mitral regurgitation. 5. Severe MAC present. Degree of mitral stenosis not determined. Continuous wave doppler across mitral valve not obtained. 6. Mildly enlarged left atrium. 7. 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 8. 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 Chamber Sizes and Function Normal left ventricular size, normal wall thickness, normal global systolic function with an estimated EF of 60 - 65%. Left atrial size is mildly enlarged. Right ventricular cavity size is normal, global systolic RV function is normal. The right atrium is normal. Right atrial volume index is 29 ml/m? ? ?. Right atrial area is 17 cm? ? ?. The pulmonary artery is not well visualized. The sinus of Valsalva is dilated. The ascending aorta is dilated. Valves, RV Pressures and Diastolic Function The aortic valve is trileaflet and sclerotic, no stenosis and trivial regurgitation. The mitral valve is sclerotic, mild mitral regurgitation. Severe mitral annular calcification is present. Indeterminate pattern of LV diastolic filling. The tricuspid valve is normal in structure. Tricuspid regurgitation is mild regurgitation. The tricuspid regurgitant velocity is 2.8 m/s, the estimated right ventricular systolic pressure is 31 mmHg plus right atrial pressure. The pulmonic valve is not well visualized. Unable to determine pulmonary regurgitation. Masses, Effusion, Shunts There is no pericardial effusion. The inferior vena cava is normal sized, respiratory size variation greater than 50%. No left to right shunting was detected by limited color flow Doppler interrogation of the interatrial septum. MEASUREMENTS AND CALCULATIONS 2-D Measurements and LV Function: LVID (d) 5.3 cm LV FS% (2D) ?? 44 % LVID (s) 2.9 cm LVOT diameter 2.1 cm IVS (d) ??1.1 cm HR ?50 bpm LVPW (d) 1.0 cm LA Vol index ??41 ml/m2 Ao Sinus 3.8 cm RA Vol index ??29 ml/m2 Asc Ao ?? 3.9 cm RA area ? 17 cm?RV Max 4C (d) 3.9 cm Diastology: Mitral ?Tissue Doppler E Peak 1.0 m/s ??e', Septum ? 0.04 m/s A Peak 0.9 m/s ??e', Lateral ?0.08 m/s E/A ?1.1 ?E/e' Average ?? 16.90 DT ? 182 msec Aortic Valve: Vmax ? 1.6 m/s ??MARQUEZ (V) ?? 2.44 cm? ? ? VTI ?0.40 m ?? MARQUEZ (I) ?? 2.40 cm? ? ? LVOT V max 1.1 m/s ??Max PG ?10 mmHg LVOT VTI ?? 0.27 m ?? Mean PG ?? 6 mmHg SV ? 97 ml ?Dim Index 0.68 SV index ?? 58 ml/m? ? ? CO ?4.8 l/min ?CI ?2.9 l/min/m? ? ? Mitral Valve: MVA ?4.2 cm? ? ? MV P 1/2 53 msec Tricuspid Valve and estimated PA pressures: TR Vmax 2.8 m/s TAPSE 2.3 cm TR maxG 31 mmHg . This study was interpreted by an [facility] accredited facility. CC: [facility] ([facility]) [facility]. ??Final ?? Procedure Note Blaze Bowling MD - 09/21/2023 ECHOCARDIOGRAM CINTIA GUZMAN : 1935 87 years Study Date: 09/21/2023 1:18:10 PM Gender: F BP: 176/69 mmHg Height: 155.00 cm BSA: 1.67 m? ? ? Weight: 68.00 kg Tech: [facility] Referring MD: AISHWARYA HAGER Site: [facility] Reading Location: MOBILE OP Patient Location: Outpatient. Procedure: 2D, Color Doppler and Spectral Doppler. Indication for study: Essential hypertension Cardiac Rhythm: Irregular.Study quality: Fair. Final Impressions: 1. Normal LV size, normal wall thickness, normal global systolic functionwith an estimated EF of 60 - 65%. 2. Sigmoid appearing septum. 3. Right ventricular cavity size is normal, global systolic RV functionis normal. 4. The mitral valve is sclerotic, mild mitral regurgitation. 5. Severe MAC present. Degree of mitral stenosis not determined.Continuous wave doppler across mitral valve not obtained. 6. Mildly enlarged left atrium. 7. 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 8. 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 Chamber Sizes and Function Normal left ventricular size, normal wall thickness, normal globalsystolic function with an estimated EF of 60 - 65%. Left atrial size ismildly enlarged. Right ventricular cavity size is normal, global systolicRV function is normal. The right atrium is normal. Right atrial volumeindex is 29 ml/m? ? ?. Right atrial area is 17 cm? ? ?. The pulmonary artery isnot well visualized. The sinus of Valsalva is dilated. The ascending aortais dilated. Valves, RV Pressures and Diastolic Function The aortic valve is trileaflet and sclerotic, no stenosis and trivialregurgitation. The mitral valve is sclerotic, mild mitral regurgitation.Severe mitral annular calcification is present. Indeterminate pattern ofLV diastolic filling. The tricuspid valve is normal in structure.Tricuspid regurgitation is mild regurgitation. The tricuspid regurgitantvelocity is 2.8 m/s, the estimated right ventricular systolic pressure is31 mmHg plus right atrial pressure. The pulmonic valve is not wellvisualized. Unable to determine pulmonary regurgitation. Masses, Effusion, Shunts There is no pericardial effusion. The inferior vena cava is normal sized,respiratory size variation greater than 50%. No left to right shunting wasdetected by limited color flow Doppler interrogation of the interatrialseptum. MEASUREMENTS AND CALCULATIONS 2-D Measurements and LV Function: LVID (d) 5.3 cm LV FS% (2D) 44 % LVID (s) 2.9 cm LVOT diameter 2.1 cm IVS (d) 1.1 cm HR 50 bpm LVPW (d) 1.0 cm LA Vol index 41 ml/m2 Ao Sinus 3.8 cm RA Vol index 29 ml/m2 Asc Ao 3.9 cm RA area 17 cm? ? ? RV Max 4C (d) 3.9 cm Diastology: Mitral Tissue Doppler E Peak 1.0 m/s e', Septum 0.04 m/s A Peak 0.9 m/s e', Lateral 0.08 m/s E/A 1.1 E/e' Average 16.90 DT 182 msec Aortic Valve: Vmax 1.6 m/s MARQUEZ (V) 2.44 cm? ? ? VTI 0.40 m MARQUEZ (I) 2.40 cm? ? ? LVOT V max 1.1 m/s Max PG 10 mmHg LVOT VTI 0.27 m Mean PG 6 mmHg SV 97 ml Dim Index 0.68 SV index 58 ml/m? ? ? CO 4.8 l/min CI 2.9 l/min/m? ? ? Mitral Valve: MVA 4.2 cm? ? ? MV P 1/2 53 msec Tricuspid Valve and estimated PA pressures: TR Vmax 2.8 m/s TAPSE 2.3 cm TR maxG 31 mmHg . This study was interpreted by an [facility] accredited facility. CC: [facility] ([facility]) [facility]. Final Aishwarya Hager MD ECHO ORD from Last 3 Months Care Teams Gis Engineer Relationship Specialty Start Date End Date Aishwarya Hager MD [address] [place] [address] PCP - General Internal Medicine 05/17/20
--- OUTSIDE RECORDS SUMMARY | 2023-11-24 12:57 | XMS_ITS | Encounter Summary ---
Author Name Unknown Organization [facility] Address [address] [place] [address] Care Team Providers Care Sprigger Name Role Phone Elsewhere, Pcp Primary Care Provider Unavailabl e Reason for Visit * Appointment Request (Routine) - Closed Specialty Diagnoses / Procedures Referred By Alysa angeles Referred To Contact Nephrology and Hypertension Aishwarya Hager M.D. [address] [place] [address] Referral ID Status Reason Start Date Expiration Date Visits Re quested Visits Authorized [id number] Closed 09/11/2023 09/10/2024 1 1 Encounter Details Date Type Department Care Team (Latest Contact Info) Description 09/22/2023 3:30 PM WHIPPER BEATER External Outreach Division of Nephrology and Hypertension in [place], [place] [address] [place] [address] Jasper Aguilar Jr., D.O. [address] [place] [address] Diabetes Mellitus Type 2 (HCC) (Primary Dx); Chronic Kidney Disease Stage 4 Glomerular Filtration Rate 15-29 (HCC); Hypertension And Chronic Kidney Disease Stage 4 (HCC); Hyperparathyroidism Renal Secondary (HCC); Anemia Of Chronic Renal Failure; Hyperkalemia; Chronic Metabolic Acidosis Social History Tobacco Use Types Packs/Day Years [...] Sign Reading Time Taken Comments Blood Pressure 150/64 09/22/2023 3:38 PM WHIPPER BEATER Pulse 51 09/22/2023 3:38 PM WHIPPER BEATER Temperature - - Respiratory Rate - - Oxygen Saturation - - Inhaled Oxygen Concentration - - Weight 69 kg (152 lb 1.9 oz) 09/22/2023 3:38 PM WHIPPER BEATER Height 157.4 cm (5' 1.97) 09/22/2023 3:38 PM CS T Body Mass Index 27.85 09/22/2023 3:38 PM WHIPPER BEATER documented in this encounter Progress Notes * Jasper Aguilar Jr., D.Thomas. - 09/22/2023 3:30 PM CST Referring Provider:DR Smallwood SUBJECTIVE REASON FOR VISIT [place] [facility] Full consultation management regards CKD stage 4, with diabetes mellitus type 2, diet-controlled, proteinuria, hypertension HISTORY OF PRESENT ILLNESS Ms. Martell is a 87 y.o. female who presents with recent difficulties with her blood pressure, and progressive renal failure. She has a background history of diabetes mellitus type 2 which is well controlled currently with a hemoglobin A1c of 6% on diet alone. She had been on metformin previously but never was terribly noncontrolled, has no neuropathic or ocular manifestations of diabetes. She has a history of hypertension which dates back approximately 5-10 years but only recently has been more problematic. She has been hard of hearing for many years, relates that her father was hard of hearing. Her daughter accompanied her to clinic today who is not hard of hearing. Her clinical data is available 1st in 2018 here in [place]. She had care providers, Dr. Krishnan at the [facility] clinic for many years. These records are not available currently. Appreciate that her serum creatinine level was 1.9 mg/dL in 2019, and has gradually risen to its current level of 2.4 mg/dL. Her level throughout 2022 was relatively stable at 2.3 mg/dL. I appreciatethat there were some medication changes on the background of elevated serum potassium, where her losartan and spironolactone were discontinued. She had been on this regimen as a management strategy for heart failure with preserved ejection fraction. These medications were stopped and unfortunately the patient rapidly developed fluid overload, and hypertension and was seen in the emergency room. Since that time medications have been restarted. The medication reconciliation process becomes a bit complex at this point. It appears she was resumed on her spironolactone, but it is unclear whetherher losartan was reinitiated. The patient believes she has, and some clinical notes testify to this, but her current medication list does not include the losartan and instead has isosorbide mononitrate in its place. The patient and her daughter find that medication unfamiliar to them. She has not had constitutional complaints recently, she has had no chest pain or shortness of breath and feels her energy appetite and overall sense of well- being of gradually been improving recently. I note that she had an echocardiogram performed which shows fairly substantial mitral annulus calcification but no evidence of volume overload and preserved left ventricular ejection fraction. There is not a familial history of renal disease that she is aware of, she has never had gross hematuria other than with 2 episodes of urinary tract infection. She has never had urolithiasis, she does not use NSAIDs, she does not drink alcohol or smoke cigarettes. She was 6 times and only had 1 . She does not recall having swelling or high blood pressure during her pregnancies, but was at bedrest. She recalls getting injections on a weekly basis. She has had no bone pain, no constitutional complaints, no fevers no chills no rash and she has not used any other medications. I appreciate her chemistries also demonstrate mild hyperkalemia, which has improved slightly when abeverage which contain quite a bit of potassium was discontinued. Note she additionally has a hyperchloremic metabolic acidosis, without diarrhea. Past medical history: 1. Hypertension 2. Diabetes mellitus type 2 3. CKD stage 4 4. Heart failure with preserved ejection fraction Current Outpatient Medications: atenoloL (TENORMIN) 50 mg [...] systems reviewed and are negative. OBJECTIVE BP 150/64 Pulse (!) 51 Ht 157.4 cm Wt 69 kg BMI 27.85 kg/m?? PHYSICAL EXAMINATION General: Awake alert oriented HEENT: JANINE, EOMI, Mucous membranes moist, no oral lesions Neck: No Masses, No Bruits Lungs: Clear to ascultation Heart: Regular Rate and Rhythm, No ectopy Murmurs or rubs Abdomen: Soft, Non-tender Extremities: No cyanosis, No clubbing: No edema Neuro: Cranial Nerves intact, she is very hard of hearing, Gait is normal, strength grossly normal Skin: no suspicious lesions identified Psychiatric: Normal affect DIAGNOSTICS Note serum creatinine 2.4 mg/dL, potassium 5.4, bicarbonate 13, BUN 33, hemoglobin 10.1, no iron studies yet ASSESSMENT / PLAN #1 Chronic Kidney Disease Stage 4 Glomerular Filtration Rate 15-29 (HCC) She is advanced chronic kidney disease which has progressed marginally since 2019. The etiology is unclear. Certainly tempting to blame hypertensive diabetic nephrosclerosis with her proteinuria, butthis seems unusual given that she is diet-controlled and has such excellent glycosylated hemoglobinlevel values. Additionally intriguing as her hearing disorder and the familial nature of this and whether she may have a collagen synthesis abnormality, perhaps an all ports type lesion. Certainly glomerular nephritis, membranous, focal sclerosis, or even vasculitis are remotely potential. Chronic interstitial nephritis is also possibility as are paraprotein issues. We are bit hampered in her current medications being a bit uncertain as well, and her previous renal function levels being uncertain as well. Going forward: 1. We will contact [facility] for prior records 2. We will arrange for renal ultrasound to determine renal architecture and rule out renal artery stenosis 3. We will check paraprotein studies, repeat chemistries, and urine studies. 4. We will consider whether further serologic battery of testing as necessary with respect to ruling out glomerular nephritis and/or vasculitis 5. We will foster a goal blood pressure of less than 140/90, and again we may need to consider medication reconciliation whether she can be on losartan, which would help with her proteinuria. 6. I will be seeing her back in clinic 7. Goal glycosylated hemoglobin less than 7.5%, which she has certainly achieved #2 Hypertension And Chronic Kidney Disease Stage 4 (HCC) Goal blood pressure is not yet met, I need to understand what her current therapy includes whether she is on the isosorbide mononitrate or back on the losartan. We will need to acknowledged hyperkalemia and perhaps consider a loop diuretic in conjunction with her spironolactone. We will need to be cautious with respect to the effects this may afford her renal dysfunction. In addition: 1. Low-salt diet less than 2000 mg sodium per day 2. Continue stay active. #3 Diabetes Mellitus Type 2 (HCC) Excellent control, I am reluctant to blame her renal dysfunction on diabetes mellitus. #4 Hyperparathyroidism Renal Secondary (HCC) We will check PTH calcium and phosphorus. \ #5 Anemia Of Chronic Renal Failure We will check B12 folate and iron stores to further delineate whether this is simply an erythropoietin deficiency perspective or whether there are substrate abnormalities we could focus upon. She may need any JAIME regimen if her hemoglobin drops below 10. #6 Hyperkalemia This is due to her CKD, decreased functional nephron mass, and her potassium- sparing diuretic. Whether she is still on an ARB agent or not is uncertain. We will make sure she has on a low-potassium diet and we could consider potassium binders, but likely we may need to consider whether we add a loop diuretic. #7 Chronic Metabolic Acidosis Intriguing, and likely part of her tubular dysfunction and a trigger to consider chronic interstitial disease. Total time: 1 hour 5 minute Counseling Time: 50 minutes Jasper Aguilar Jr., D.O. 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
--- OUTSIDE RECORDS SUMMARY | 2023-11-24 12:57 | XMS_ITS | Encounter Summary ---
Author Name Unknown Organization [facility] Address [address] [place] [address] Care Team Providers Care Motion Picture Actor Name Role Phone Elsewhere, Pcp Primary Care Provider Unavailabl e Encounter Details Date Type Department Care Team (Late st Contact Info) Description 09/25/2023 Orders Only Division of Nephrology and Hypertension in [place], [place] [address] [place] [address] Jasper Aguilar Jr., D.O. [address] [place] [address] Social History Tobacco Use Types Packs/Day Years Used Date Smoking Tobacco: Never Assessed Nutrition Answer Date Recorded Nutrition: EVOO Fat Source Unknown 09/11 Nutrition: Servings of Fruits/Vegetables per Day Not on file 09/11/2023 Dental Answer Date Recorded Dental: Regular Dentist Unknown 09/11/19 24 Sex and Gender Information Value Date Recorded Sex Assigned at Not on file Gender Identity Not on file Sexual Orientation Not on file documented as of this encounter Plan of Treatment Not on file documented as of this encounter Visit Diagnoses Not on filedocumented in this encounter Care Teams Motion Picture Actor Relationship Specialty Start Date End Date Elsewhere, Pcp PCP - General 10/11/18 documented as of this encounter
== END 2023-11-24 14:32 | disposition home or self-care (01) ==
PROVIDERS: Emergency Provider Family Medicine; PCP Internal Medicine
DX: R60.0 Localized edema (principal); R03.0 Elevated blood-pressure reading, without diagnosis of hypertension
CPT/HCPCS: 93970; 99283; 99284

== ENCOUNTER 2024-02-22 09:53 | Outpatient (CLI) | payer MEDICARE, BC, SELFPAY ==
--- OUTSIDE RECORDS SUMMARY | 2024-02-23 17:12 | XMS_ITS ---
Author Organization [facility] Address [address] [place] [address] Care Team Providers Care High School Chemistry Teacher Name Role Phone Unavailable Unavailable Unavailable Surgery Details Not on file Complications Check Surgery Details section. Procedure Estimated Blood Loss Check Surgery Details section. Procedure Findings Check Surgery Details section. Procedure Specimens Taken Check Surgery Details section.
--- OUTSIDE RECORDS SUMMARY | 2024-02-23 17:12 | XMS_ITS | Clinical Summary ---
Author Organization [facility] Address [place], [place] [address] Care Team Providers Care Offset Printing Operator Name Role Phone Aishwarya Hager MD Primary Care Provider [phone] Social History Tobacco Use Types Packs/Day Years [...] - PCV) 2002 COVID-19 vaccine series ( - ) 04/10/2023 11/06/2020, 10/16/2020 Influenza for age 65+ 04/10/2024 Care Teams Offset Printing Operator Relationship Specialty Start Date End Date Aishwarya Hager MD [address] [place] [address] PCP - General Internal Medicine 05/17/20
--- OUTSIDE RECORDS SUMMARY | 2024-02-23 17:12 | XMS_ITS | Clinical Summary ---
Author Organization [facility] Address [address] [place] [address] Care Team Providers Care Taxi Driver Supervisor Name Role Phone Elsewhere, Pcp Primary Care Provider Unavailabl e Source Comments Patient records contain information from all sites at [facility]. For routine questions regarding patient records, call [phone] during business hours, M-F 8:00 AM - 5:00 PM Central Time. Record requests for emergency care only can be directed to [phone] at any time.[facility] Allergies Active Allergy Reactions Criticality Noted [...] Vaccines (1 of 2) 11/30/1987 COVID-19 Vaccine ( - 2022-2 4 season) 2023 06/17/2022, 06/06/2021, 11/06/2020, Additional history exists Depression Screening (Annual PHQ-2) 08/10/2023 Fall Risk Screen (Annual) 08/10/2023 Influenza Vaccine (#1) 2024 , 05/28/2022, 05/28/2021, Additional history exists DTaP,Tdap,and Td Vaccines (3 - Td or Tdap) 05/15/2033 05/15/2023, 09/08/2011 Pneumococcal vaccine (65+ years) Completed 01/29/2023, 11/08/2014, 01/23/2004 Advance Directives For more information, please contact: [phone] Documents on File Type Date Recorded Patient Slp Expl anation Advance Directives 06/27/2011 12:00 AM Zahra rainey document. See document viewer. Care Teams Taxi Driver Supervisor Relationship Specialty Start Date End Date Elsewhere, Pcp PCP - General 10/11/18
--- OUTSIDE RECORDS SUMMARY | 2024-02-23 17:12 | XMS_ITS | Referral Summary ---
Author Organization [facility] Address [address] [place] [address] Care Team Providers Care Collections Rep Name Role Phone Elsewhere, Pcp Primary Care Provider Unavailabl e Source Comments Patient records contain information from all sites at [facility]. For routine questions regarding patient records, call [phone] during business hours, M-F 8:00 AM - 5:00 PM Central Time. Record requests for emergency care only can be directed to [phone] at any time.[facility] Allergies Active Allergy Reactions Criticality Noted Date [...] Advance Directives For more information, please contact: [phone] Documents on File Type Date Recorded Patient Fitness Assistant Expl anation Advance Directives 06/27/2011 12:00 AM Zahra rainey document. See document viewer. Care Teams Collections Rep Relationship Specialty Start Date End Date Elsewhere, Pcp PCP - General 10/11/18
== END 2024-02-22 09:54 | disposition home or self-care (01) ==
LOC: NFLDREF 02-23 17:10
PROVIDERS: PCP Internal Medicine; Referring Provider Internal Medicine; Visit Provider Internal Medicine Nephrology
DX: I10 Essential (primary) hypertension (principal); N18.4 Chronic kidney disease, stage 4 (severe); D64.9 Anemia, unspecified; E11.29 Type 2 diabetes mellitus with other diabetic kidney complication; R80.9 Proteinuria, unspecified
CPT/HCPCS: 80069; 82043; 82570; 82607; 82728; 83540; 83550; 83970; 84550; 87086; 87186

== ENCOUNTER 2024-04-24 16:34 | Emergency (ER) | payer MEDICARE, BC, SELFPAY ==
--- NOTE | 2024-04-24 16:37 | ED_ITS ---
HPI - General Adult General Time Seen by Provider: 16:37 Date Seen: 04/24/24 Chief complaint: Weakness Stated complaint: blood pressure 200/100+ Time Seen by Provider: 04/24/24 16:36 Source: patient, RN notes reviewed and old records reviewed Mode of arrival: ambulatory Limitations: no limitations History of Present Illness HPI narrative: 88-year-old female with history of chronic kidney disease, hypertension, diabetes who presents today with elevated blood pressure. Patient notes she checks her blood pressure twice a week. When she checked it today it was 200 /117 and she became anxious so came to the emergency department. No associated chest pain or shortness of breath. No nausea, vomiting. No numbness, tingling, or weakness of the extremities. She says she has felt a little off this week. No urinary symptoms. No cough or runny nose. Related Data Home Medications ?Medication ?Instructions ?Recorded ?Confirmed aspirin 81 mg capsule 81 mg PO .3 x Wk 08/19/22 04/24/24 spironolactone 25 mg tablet 25 mg PO QHS 09/21/23 04/24/24 Previous Rx's ?Medication ?Instructions ?Recorded nitroglycerin 0.4 mg sublingual 0.4 mg sublingual Q5M PRN chest 08/19/22 tablet pain #25 tabs simvastatin 20 mg tablet 20 mg PO QHS #90 tabs 09/07/23 losartan 100 mg tablet 100 mg PO QDAY #90 tabs 10/20/23 Allergies Allergy/AdvReac Type Severity Reaction Status Date / Time Sulfa (Sulfonamide Allergy Intermediate tachycardia Verified 04/24/24 16:42 Antibiotics) sulfamethoxazole Allergy Intermediate tachycardia Verified 04/24/24 16:42 trimethoprim Allergy Intermediate tachycardia Verified 04/24/24 16:42 amlodipine Allergy Mild Cough Verified 04/24/24 16:42 pseudoephedrine Allergy Mild Unknown Verified 04/24/24 16:42 [facility] Surgical History History of total abdominal hysterectomy and bilateral salpingo-oophorectomy (08/22/11) ?Z90.710 - Acquired absence of both cervix and uterus (ICD-10) ?Z90.722 - Acquired absence of ovaries, bilateral (ICD-10) ?Z90.79 - Acquired absence of other genital organ(s) (ICD-10) History of benign breast biopsy (08/22/11) ?Z98.890 - Other specified postprocedural states (ICD-10) History of appendectomy (08/22/11) ?Z90.49 - Acquired absence of other specified parts of digestive tract (ICD- 10) Social History What is your current living situation?: I presently have a place to live Problems where you live: declined to answer In the past 12 months, utilities in danger of being shut off: no In past 12 months, lack of transportation kept you from medical appts, meetings, work, or getting things needed for daily living: no In the past 12 mos, have been you worried that your food would run out before you had money to buy more?: never true In the past 12 mos, the food you bought just didn't last and you didn't have money to buy more?: never true Smoking Status: Never smoker How often do you have a drink containing alcohol: never AUDIT-C Alcohol total score: 0 Non-prescribed substance use: denies use How often does anyone, including family, friends and others, physically hurt you : never How often does anyone, including family, friends and others, insult or talk down to you: never How often does anyone, including family, friends and others, threaten you with harm: never How often does anyone, including family, friends and others, scream or curse at you: never Little interest or pleasure in doing things: not at all Feeling down, depressed, or hopeless: not at all Exam Narrative: Exam Narrative: General: Well-developed and well-nourished, no acute distress Head: Atraumatic and normocephalic Eyes: Pupils are equal reactive, extraocular motions intact, conjunctiva clear ENT: External nose and ears are normal, posterior pharynx without erythema or exudate Neck: No midline cervical tenderness, full spontaneous range of motion the neck, trachea midline, no adenopathy Heart: Regular rate and rhythm no murmurs or thrills Lungs: Clear to auscultation bilaterally without wheezes or crackles Abdomen: Soft, nontender, nondistended with active bowel sounds Musculoskeletal: No tenderness, deformity, or edema Neurologic: Awake, alert, and oriented x3, no gross focal neurologic deficits, cranial nerves intact as tested Psych: Mood and affect are appropriate Skin: No rashes Const: Vital Signs, click to edit/add: Vital Signs - 24 hr 04/24/24 16:44 Temperature 98.6 F Pulse Rate [Pulse Oximeter] 60 Respiratory Rate 24 Blood Pressure [Ri ght Upper Arm] 162/82 H Pulse Oximetry 98 Oxygen Delivery Me thod Room Air Course Course ED Course: Reviewed most recent nephrology note from February 28 which was follow-up for 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 Patient presents today with elevated blood pressures. No chest pain, shortness of breath, neurologic symptoms. On exam here, patient has no complaints. She said she felt a little off this week but is feeling better now. Denies chest pain, shortness of breath. Will check basic panel is creatinine due to history of chronic kidney disease, otherwise if blood pressure remains at current levels patient can be discharged with outpatient follow-up. Reevaluation(s) Time of Reevaluation #1: 17:39 Reevaluation #1: Creatinine today is 2.2 which is approximately baseline for the patient. Blood pressure continues to be elevated but no evidence for hypertensive emergency or associated symptoms. Patient is stable for discharge with outpatient follow-up with Nephrology and primary care. Vital Signs Vital signs: Initial Vital Signs Temperature 98.6 F 04/24/24 16:44 Temperature Source Temporal Artery Scan 04/24/24 16:44 Pulse Rate 60 04/24/24 16:44 Respiratory Rate 04/24/24 16:44 Blood Pressure 162/82 H 04/24/24 16:44 Blood Pressure Mean 108 H 04/24/24 16:44 Blood Pressure Position High-Fowlers 04/24/24 16:44 Pulse Oximetry 98 04/24/24 16:44 Oxygen Delivery Method Room Air 04/24/24 16:44 Vital Signs Temperature 98.6 F 04/24/24 16:44 Pulse Rate 60 04/24/24 16:44 Respiratory Rate 24 04/24/24 16:44 Blood Pressure 162/82 H 04/24/24 16:44 Pulse Oximetry 98 04/24/24 16:44 Oxygen Delivery Method Room Air 04/24/24 16:44 Temperature 98.6 F 04/24/24 16:44 Pulse Rate 60 04/24/24 16:44 Respiratory Rate 24 04/24/24 16:44 Blood Pressure 162/82 H 04/24/24 16:44 Pulse Oximetry 98 04/24/24 16:44 Oxygen Delivery Method Room Air 04/24/24 16:44 Medical Decision Making Lab Data Labs: Lab Results 04/24/24 Range/Units 17:12 Sodium 138 (135-149) mmol/L Potassium 4.9 (3.6-5.1) mmol/L Chloride 109 (96-114) mmol/L Carbon Dioxide 20 (20-32) mmol/L Anion Gap 9 (7-15) mEq/L BUN 35 H (7-30) mg/dL Creatinine 2.2 H (0.5-1.5) mg/dL Estimated Creat Clear 14.52 Estimated GFR 21 ml/min Glucose 150 H (60-115) mg/dL Calcium 8.9 (8.4-10.6) mg/dL Magnesium 1.8 (1.5-2.6) mg/dL Discharge Plan Discharge Clinical Impression: Essential hypertension, CKD (chronic kidney disease) Diabetes mellitus, type II Qualifiers: Diabetes mellitus senior living insulin use: without senior living use Diabetes mellitus complication status: with kidney complications Diabetes mellitus complication detail: with microalbuminuria Qualified Code(s): E11.29 - Type 2 diabetes mellitus with other diabetic kidney complication Patient Disposition: Home w/ Parent or Adult Condition: Stable Instructions: Chronic Kidney Disease (ED), Chronic Hypertension (ED) Additional Instructions: Contact your kidney doctor and your primary care doctor in the morning to discuss medication changes for a blood pressure Activity Level: Activity as Tolerated Discharge Diet: Regular Prescriptions: No Action aspirin 81 mg capsule 81 mg PO .3 x Wk nitroglycerin 0.4 mg tablet, sublingual 0.4 mg sublingual Q5M PRN (Reason: chest pain) Qty: 25 6RF Rx Instructions: do not exceed 3 doses per episode spironolactone 25 mg tablet 25 mg PO QHS simvastatin 20 mg tablet 20 mg PO QHS Qty: 90 3RF losartan 100 mg tablet 100 mg PO QDAY Qty: 90 3RF Follow Up/Referrals: Aishwarya Hager MD [Primary Care Provider] - Stand Alone Forms: KidAdmit Info Instructions
[2024-04-24 16:44] VITALS: BP 162/82; PULSE 60; RESP 24; TEMP 37; O2SAT 98; BMI 26.7
--- OUTSIDE RECORDS SUMMARY | 2024-04-24 17:29 | XMS_ITS | Referral Summary ---
Author Organization [facility] Address [address] [place] [address] Care Team Providers Care Boat Dispatcher Name Role Phone Elsewhere, Pcp Primary Care Provider Unavailabl e Source Comments Patient records contain information from all sites at [facility]. For routine questions regarding patient records, call [phone] during business hours, M-F 8:00 AM - 5:00 PM Central Time. Record requests for emergency care only can be directed to [phone] at any time.[facility] Encounters Date Type Department Care Team Description 02/29/2024 4:30 PM CDT External Outreach Division of Nephrology and Hypertension in [place], [place] [address] [place] [address] Jasper Aguilar Jr., D.O. Hypertension And Chronic Kidney Disease Stage 4 (Primary Dx); Chronic Kidney Disease Stage 4 Glomerular Filtration Rate 15-29 (HCC); Diabetes Mellitus Type 2 (HCC); Anemia Of Chronic Renal Failure; Chronic Metabolic Acidosis; Hyperparathyroidism Renal Secondary (HCC) from Last 3 Months Allergies Active Allergy [...] 09/22/2023 Anemia Of Chronic Renal Failure 09/22/2023 Hypertensive Chronic Kidney Disease With Stage 1 Through Stage 4 Chronic Kidney Disease, Or Unspecified Chronic Kidney Disease 09/22/2023 Hyperkalemia 09/22/2023 Chronic Metabolic Acidosis 09/22/2023 [...] Sign Reading Time Taken Comments Blood Pressure 167/72 02/29/2024 4:39 PM CDT Pulse 50 02/29/2024 4:39 PM CDT Temperature - - Respiratory Rate - - Oxygen Saturation - - Inhaled Oxygen Concentration - - Weight 67.2 kg (148 lb 2.4 oz) 02/29/2024 4:39 P M CDT Height 157.4 cm (5' 1.97) 02/29/2024 4:39 PM CD T Body Mass Index 27.12 02/29/2024 4:39 PM CDT Plan of Treatment Not on file Advance Directives For more information, please contact: [phone] Documents on File Type Date Recorded Patient Associate Software Development Engineer Expl anation Advance Directives 06/27/2011 12:00 AM Zahra rainey document. See document viewer. Care Teams Boat Dispatcher Relationship Specialty Start Date End Date Elsewhere, Pcp PCP - General 10/11/18
--- OUTSIDE RECORDS SUMMARY | 2024-04-24 17:29 | XMS_ITS | Clinical Summary ---
Author Organization [facility] Address [address] [place] [address] Care Team Providers Care Portfolio Director Name Role Phone Elsewhere, Pcp Primary Care Provider Unavailabl e Source Comments Patient records contain information from all sites at [facility]. For routine questions regarding patient records, call [phone] during business hours, M-F 8:00 AM - 5:00 PM Central Time. Record requests for emergency care only can be directed to [phone] at any time.[facility] Allergies Active Allergy Reactions Criticality Noted Date [...] Outreach Division of Nephrology and Hypertension in [place], [place] [address] [place] [address] Jasper Aguilar Jr., D.O. Hypertension And Chronic Kidney Disease Stage 4 (Primary Dx); Chronic Kidney Disease Stage 4 Glomerular Filtration Rate 15-29 (HCC); Diabetes Mellitus Type 2 (HCC); Anemia Of Chronic Renal Failure; Chronic Metabolic Acidosis; Hyperparathyroidism Renal Secondary (HCC) from Last 3 Months Immunizations Name Administration [...] 02/29/2024 4:39 PM CDT Plan of Treatment Health Maintenance Due Date Last Done Comments Creatinine Level (Kidney Fun ction Test) 1937 Diabetic Office Visit with F oot Exam 1937 Dilated Eye Exam 1937 Hemoglobin A1C 1937 Potassium Level 1937 Sodium Level 1937 Urine Albumin 1937 Zoster Vaccines (1 of 2) 11/30/1987 Hepatitis B Vaccines (1 of 3 - Risk 3-dose series) 1997 Depression Screening (Annual PHQ-2) 08/10/2023 Fall Risk Screen (Annual) 08/10/2023 COVID-19 Vaccine (2022-09 4 season) 2024 06/17/2022, 06/06/2021, 11/06/2020, Additional history exists Influenza Vaccine (#1) 2024 3, 05/28/2022, 05/28/2021, Additional history exists DTaP,Tdap,and Td Vaccines (3 - Td or Tdap) 05/15/2033 05/15/2023, 09/08/2011 Pneumococcal vaccine (65+ years) Completed 01/29/2023, 11/08/2014, 01/23/2004 Advance Directives For more information, please contact: [phone] Documents on File Type Date Recorded Patient Pss Delivery Professional Expl anation Advance Directives 06/27/2011 12:00 AM Zahra rainey document. See document viewer. Care Teams Portfolio Director Relationship Specialty Start Date End Date Elsewhere, Pcp PCP - General 10/11/18
--- OUTSIDE RECORDS SUMMARY | 2024-04-24 17:29 | XMS_ITS | Clinical Summary ---
Author Organization [facility] Address [place], [place] [address] Care Team Providers Care Team Psychologist Name Role Phone Aishwarya Hager MD Primary Care Provider [phone]- [phone] Social History Tobacco Use Types Packs/Day Years [...] for age 50+ (1 of 2) 11/30/1987 RSV vaccine for adults or pr egnancy (1 - 1-dose 60+ series) 1997 DEXA/DXA scan for age 65+ 2002 Medicare Wellness for age 65+ 2002 Pneumococcal series for age 65+ (1 of 1 - PCV) 2002 COVID-19 vaccine series ( season) 2024 11/06/2020, 10/16/2020 Influenza for age 65+ 04/10/2024 Care Teams Team Psychologist Relationship Specialty Start Date End Date Aishwarya Hager MD [address] [place] [address] PCP - General Internal Medicine 05/17/20
--- OUTSIDE RECORDS SUMMARY | 2024-04-24 17:29 | XMS_ITS | Encounter Summary ---
Author Organization [facility] Address [address] [place] [address] Care Team Providers Care Diamond Sizer Name Role Phone Elsewhere, Pcp Primary Care Provider Unavailabl e Reason for Visit * Appointment Request (Routine) - Closed Specialty Diagnoses / Procedures Referred By Contac t Referred To Contact Nephrology and Hypertension Referral ID Status Reason Start Date Expiration Date Visits Re quested Visits Authorized [id number] Closed 01/22/2024 01/21/2025 1 1 Encounter Details Date Type Department Care Team (Latest Contact Info) Description 02/29/2024 4:30 PM CDT External Outreach Division of Nephrology and Hypertension in [place], [place] [address] [place] [address] Jasper Aguilar Jr., D.O. [address] [place] [phone] Hypertension And Chronic Kidney Disease Stage 4 [...] Mass Index 27.12 02/29/2024 4:39 PM CDT documented in this encounter Progress Notes * Jasper Aguilar Jr., D.[place]. - 02/29/2024 4:30 PM CDT Referring Provider: ELSEWHERE, PCP SUBJECTIVE REASON FOR VISIT [facility] out reach CKD Clinic Follow-up regards advanced chronic kidney disease on the background of nephrosclerosis HISTORY OF PRESENT ILLNESS Ms. Martell is a 88 y.o. 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 Since our last visit she continues to be extremely active but has lost 7 lb. She has had no fevers no chills her appetite is excellent. No bone pain, no issues with her voice, but she is extremely hard of hearing. She is accompanied to her visit today by her daughter. She provides me with our home blood pressure readings which are running in the 130s and 140s over 70s, with pulse rates in the low 50s. She relates that she has to be very careful standing up. She has stopped using salt, she has no lower extremity swelling. She continues on her spironolactone in his been very careful with potassium containing foods. Her serum creatinine has increased from 2.4-2.9, with a interval value of 2.1. Her microalbumin to creatinine ratio has improved, she does have elevated serum light chain levels but these are within the appropriate range of roughly 2-1 kappa to lambda. Past medical history: 1. Hypertension 2. CKD stage 4 3. Chronic metabolic acidosis 4. Diet-controlled diabetes mellitus 5. History of hyperkalemia 6. Fatigue malaise Current Outpatient Medications: atenoloL (TENORMIN) 50 mg [...] systems reviewed and are negative. OBJECTIVE BP (!) 167/72 Pulse (!) 50 Ht 157.4 cm Wt 67.2 kg BMI 27.12 kg/m?? PHYSICAL EXAMINATION General: Awake alert oriented HEENT: JANINE, EOMI, Mucous membranes moist, no oral lesions Neck: No Masses, No Bruits Lungs: Clear to ascultation Heart: Regular Rate and Rhythm, No ectopy Murmurs or rubs Abdomen: Soft, Non-tender Extremities: No cyanosis, No clubbing: No edema Neuro: Cranial Nerves intact other than she is extremely hard of hearing, Gait is normal, strength grossly normal Skin: no suspicious lesions identified Psychiatric: Normal affect DIAGNOSTICS Note creatinine 2.9 mg/dL BUN stable at 40, hemoglobin slightly improved to 11.3 grams/deciliter normal iron studies, bicarbonate 13 ASSESSMENT / PLAN #1 Chronic Kidney Disease Stage 4 Glomerular Filtration Rate 15-29 (HCC) Her GFR has worsened, likely on the background of mismatch between effective circulating volume/perfusion and her nephrosclerosis. Going forward: 1. Stop atenolol 2. Accept blood pressures in the 140s over 80s 3. No NSAIDs or Mcdermott 2 inhibitors 4. Goal glycosylated hemoglobin less than 8%-achieved with current hemoglobin A1c of 6.3% 5. Asked her to stay well hydrated drinking at least 0.5 gal of water per day 6. I will have her back to clinic in 4 months 7. I will hold off on bicarbonate therapy, given the sodium load. #2 Hypertension And Chronic Kidney Disease Stage 4 Goal blood pressures are in the 140s over 80s or lower given her age and comorbidities. I suspect we are being over aggressive with her blood pressure, and her bradycardia may be decreasing renal perfusion. There was also some sense that she is having orthostatic changes, and is at a high fall risk. Going forward then 1. Continue losartan, we may cut this back from 100 mg orally daily to 75 mg orally daily as a nextstep 2. Continue on her spironolactone 3. Stop atenolol 4. Continue isosorbide mononitrate 60 mg orally daily 5. Low-sodium diet less than 2000 mg sodium per day 6. No NSAIDs or Mcdermott 2 inhibitors 7. Appreciate her microalbumin to creatinine ratio has improved to 580 milligrams/gram, decreased from over 5000 milligrams/gram, when her blood pressure was uncontrolled. #3 Diabetes Mellitus Type 2 (HCC) Well controlled diet alone hemoglobin A1c 6.3%. #4 Anemia Of Chronic Renal Failure Iron stores are acceptable hemoglobin has improved slightly to 11.3, no need for an JAIME regimen. #5 Chronic Metabolic Acidosis Guidelines would suggest the addition of sodium bicarbonate to her regimen at this point, I am hopeful that her GFR will improve sufficiently to return her serum bicarbonate level above 18 without the addition of sodium bicarbonate to her regimen. I will see her back in 4 months and we will discuss whether we need to add bicarbonate. #6 Hyperparathyroidism Renal Secondary (HCC) PTH levels acceptable calcium and phosphorus are acceptable. Total time: 35 minutes Counseling Time: 30 minutes Jasper Aguilar Jr., D.O. documented in this encounter Plan of Treatment Not on file documented as of this encounter Visit Diagnoses Diagnosis Hypertension And Chronic Kidney Disease Stage 4- Primary Chronic Kidney Disease Stage 4 Glomerular Filtration Rate 15-29 (HCC) Diabetes Mellitus Type 2 (HCC) Anemia Of Chronic Renal Failure Chronic Metabolic Acidosis Hyperparathyroidism Renal Secondary (HCC) documented in this encounter Care Teams Diamond Sizer Relationship Specialty Start Date End Date Elsewhere, Pcp PCP - General 10/11/18 documented as of this encounter
--- OUTSIDE RECORDS SUMMARY | 2024-04-24 17:29 | XMS_ITS ---
Author Organization [facility] Address [address] [place] [address] Care Team Providers Care Transport Conductor Name Role Phone Unavailable Unavailable Unavailable Surgery Details Not on file Complications Check Surgery Details section. Procedure Estimated Blood Loss Check Surgery Details section. Procedure Findings Check Surgery Details section. Procedure Specimens Taken Check Surgery Details section.
[2024-04-24 17:31] LABS: Chloride* 109 mmol/L (96-114); Potassium* 4.9 mmol/L (3.6-5.1); Sodium* 138 mmol/L (135-149)
[2024-04-24 17:34] LABS: Anion Gap 9 mEq/L (7-15); Blood Urea Nitrogen* 35 mg/dL (7-30); Calcium* 8.9 mg/dL (8.4-10.6); Carbon Dioxide* 20 mmol/L (20-32); Creatinine* 2.2 mg/dL (0.5-1.5); Est. Creatinine Clearance* 14.52; Estimated Glomerular Filt Rate 21 ml/min; Glucose* 150 mg/dL (60-115)
[2024-04-24 17:35] LABS: Magnesium* 1.8 mg/dL (1.5-2.6)
== END 2024-04-24 17:53 | disposition home or self-care (01) ==
PROVIDERS: Emergency Provider Family Medicine; PCP Internal Medicine
DX: E11.22 Type 2 diabetes mellitus with diabetic chronic kidney disease (principal); I12.9 Hypertensive chronic kidney disease with stage 1 through stage 4 chronic kidney disease, or unspecified chronic kidney disease; N18.9 Chronic kidney disease, unspecified
CPT/HCPCS: 36415; 80048; 83735; 99283; 99284

== ENCOUNTER 2024-05-20 11:00 | Outpatient (CLI) | payer MEDICARE, BC, SELFPAY ==
--- OUTSIDE RECORDS SUMMARY | 2024-05-20 13:31 | XMS_ITS | Clinical Summary ---
Author Organization [facility] Address [address] [place] [address] Care Team Providers Care Home Health Travel Pt Name Role Phone Elsewhere, Pcp Primary Care Provider Unavailabl e Source Comments Patient records contain information from all sites at [facility]. For routine questions regarding patient records, call [phone] during business hours, M-F 8:00 AM - 5:00 PM Central Time. Record requests for emergency care only can be directed to [phone] at any time.[facility] Allergies Active Allergy Reactions Criticality Noted Date [...] Outreach Division of Nephrology and Hypertension in [place], [place] [address] [place] [address] Jasper Aguilar Jr., D.O. Hypertension And Chronic [...] of 3 - Risk 3-dose series) 1997 RSV vaccine - (32-3 6 weeks) or 60+ years (1 - 1-dose 75+ series) 2012 Depression Screening (Annual PHQ-2) 08/10/2023 Fall Risk Screen (Annual) 08/10/2023 COVID-19 Vaccine (5 - 2023-2 5 season) 2024 06/17/2022, 06/06/2021, 11/06/2020, Additional history exists Influenza Vaccine (#1) 2024 , 05/28/2022, 05/28/2021, Additional history exists DTaP,Tdap,and Td Vaccines (3 - Td or Tdap) 05/15/2033 05/15/2023, 09/08/2011 Pneumococcal vaccine (65+ years) Completed 01/29/2023, 11/08/2014, 01/23/2004 Advance Directives For more information, please contact: [phone] Documents on File Type Date Recorded Patient Video Game Script Writer Expl anation Advance Directives 06/27/2011 12:00 AM Zahra rainey document. See document viewer. Care Teams Home Health Travel Pt Relationship Specialty Start Date End Date Elsewhere, Pcp PCP - General 10/11/18
--- OUTSIDE RECORDS SUMMARY | 2024-05-20 13:31 | XMS_ITS | Referral Summary ---
Author Organization [facility] Address [address] [place] [address] Care Team Providers Care Rent And Housing Investigator Name Role Phone Elsewhere, Pcp Primary Care Provider Unavailabl e Source Comments Patient records contain information from all sites at [facility]. For routine questions regarding patient records, call [phone] during business hours, M-F 8:00 AM - 5:00 PM Central Time. Record requests for emergency care only can be directed to [phone] at any time.[facility] Encounters Date Type Department Care Team Description 02/29/2024 4:30 PM CDT External Outreach Division of Nephrology and Hypertension in [place], [place] [address] [place] [address] Jasper Aguilar Jr., D.O. Hypertension And Chronic [...] Advance Directives For more information, please contact: [phone] Documents on File Type Date Recorded Patient Baker Bench Expl anation Advance Directives 06/27/2011 12:00 AM Zahra rainey document. See document viewer. Care Teams Rent And Housing Investigator Relationship Specialty Start Date End Date Elsewhere, Pcp PCP - General 10/11/18
--- OUTSIDE RECORDS SUMMARY | 2024-05-20 13:31 | XMS_ITS | Encounter Summary ---
Author Organization [facility] Address [address] [place] [address] Care Team Providers Care Master Esthetician Name Role Phone Elsewhere, Pcp Primary Care Provider Unavailabl e Reason for Visit * Appointment Request (Routine) - Closed Specialty Diagnoses / Procedures Referred By Contac t Referred To Contact Nephrology and Hypertension Referral ID Status Reason Start Date Expiration Date Visits Re quested Visits Authorized [id number] Closed 01/22/2024 01/21/2025 1 1 Encounter Details Date Type Department Care Team (Latest Contact Info) Description 02/29/2024 4:30 PM CDT External Outreach Division of Nephrology and Hypertension in [place], [place] [address] [place] [address] Jasper Aguilar Jr., D.O. [address] [place] [phone] Hypertension And Chronic Kidney Disease Stage 4 [...] Provider: ELSEWHERE, PCP SUBJECTIVE REASON FOR VISIT [facility] out reach CKD [facility] Follow-up regards advanced [...] (HCC) documented in this encounter Care Teams Master Esthetician Relationship Specialty Start Date End Date Elsewhere, Pcp PCP - General 10/11/18 documented as of this encounter
--- OUTSIDE RECORDS SUMMARY | 2024-05-20 13:31 | XMS_ITS ---
Author Organization [facility] Address [address] [place] [address] Care Team Providers Care Associate Product Manager Name Role Phone Unavailable Unavailable Unavailable Surgery Details Not on file Complications Check Surgery Details section. Procedure Estimated Blood Loss Check Surgery Details section. Procedure Findings Check Surgery Details section. Procedure Specimens Taken Check Surgery Details section.
== END 2024-05-20 11:01 | disposition home or self-care (01) ==
LOC: NFLDREF 13:30
PROVIDERS: PCP Internal Medicine; Referring Provider Internal Medicine; Visit Provider Internal Medicine Nephrology
DX: I12.9 Hypertensive chronic kidney disease with stage 1 through stage 4 chronic kidney disease, or unspecified chronic kidney disease (principal); E11.29 Type 2 diabetes mellitus with other diabetic kidney complication; R80.9 Proteinuria, unspecified; N18.4 Chronic kidney disease, stage 4 (severe); N39.0 Urinary tract infection, site not specified; B96.20 Unspecified Escherichia coli [E. coli] as the cause of diseases classified elsewhere
CPT/HCPCS: 80069; 82043; 82570; 82728; 82784; 83520; 83540; 83550; 83970; 84155; 84165; 84550; 86334; 87086; 87186

== ENCOUNTER 2024-10-11 08:45 | Outpatient (CLI) | payer MEDICARE, BC, SELFPAY | END 2024-10-11 08:46 | disposition home or self-care (01) | LOC: NFLDREF 23:34 | PROVIDERS: PCP Internal Medicine; Referring Provider Internal Medicine; Visit Provider Internal Medicine | DX: E11.29 Type 2 diabetes mellitus with other diabetic kidney complication (principal); R80.9 Proteinuria, unspecified; E78.5 Hyperlipidemia, unspecified; I10 Essential (primary) hypertension; N18.4 Chronic kidney disease, stage 4 (severe) | CPT/HCPCS: 80053; 80061; 80069; 82043; 82570; 82728; 83540; 83550; 83970; 84100; 84450; 84460; 84550; 87086 ==

== ENCOUNTER 2025-03-12 15:40 | Emergency (ER) | payer MEDICARE, BC, SELFPAY ==
[2025-03-12] VITALS (21 sets, daily range): BP systolic 154–177; BP diastolic 73–94; PULSE 45–61; RESP 14–42; TEMP 36.2; O2SAT 94–100; BMI 28.0
--- OUTSIDE RECORDS SUMMARY | 2025-03-12 15:42 | XMS_ITS | Clinical Summary ---
Author Organization [facility] Address [address] [place] [address] Care Team Providers Care Journal Entry Audit Clerk Name Role Phone Elsewhere, Pcp Primary Care Provider Unavailabl e Source Comments Patient records contain information from all sites at [facility]. For routine questions regarding patient records, call [phone] during business hours, M-F 8:00 AM - 5:00 PM Central Time. Record requests for emergency care only can be directed to [phone] at any time.[facility] Allergies Active Allergy Reactions Criticality Noted Date Comments Amlodipine Cough 09/22/2023 Sulfa (Sulfonamide Antibiotics) Rash 09/10 Medications losartan (Cozaar) 100 mg tablet Take 1 tablet (100 mg total) by mouth daily. 90 tablet 3 10/11/2024 Active simvastatin (Zocor) 20 mg tablet Take 1 tablet (20 mg total) by mouth at bedtime. 90 tablet 3 10/11/2024 Active spironolactone (Aldactone) 25 mg tablet Take 1 tablet (25 mg total) by mouth daily. 90 tablet 3 10/11/2024 Active isosorbide mononitrate (Imdur) 120 mg 24 hr tablet Take 1 tablet (120 mg total) by mouth daily. 90 tablet 3 10/11/2024 Active Active Problems Problem Noted Date Diagnosed Date Chronic Diastolic (Congestive) Heart Failure 11/2024 Pyuria 10/11/2024 Chronic Kidney Disease Stage 4 Glomerular Filtration Rate 15-29 09/22/2023 Diabetes Mellitus Type 2 09/22/2023 Hyperparathyroidism Renal Secondary 09/22/2023 Anemia Of Chronic Renal Failure 09/22/2023 Hypertensive Chronic Kidney Disease With Stage 1 Through Stage 4 Chronic Kidney Disease, Or Unspecified Chronic Kidney Disease 09/22/2023 Hyperkalemia 09/22/2023 Chronic Metabolic Acidosis 09/22/2023 Immunizations Immunization Administration Dates Next Due H1N1 All Forms 08/21/2009 Social History Tobacco Use Types Packs/Day Years Used Date Smoking Tobacco: Never Assessed Comments Unknown Sex and Gender Information Value Date Recorded Sex Assigned at Not on file Legal Sex Female 11:41 AM ECONOMIC ADVISER Gender Identity Not on file Sexual Orientation Not on file Last Filed Vital Signs Vital Sign Reading Time Taken Comments Blood Pressure 148/72 10/11/2024 3:17 PM ECONOMIC ADVISER Pulse 72 10/11/2024 3:17 PM ECONOMIC ADVISER Temperature - - Respiratory Rate - - Oxygen Saturation - - Inhaled Oxygen Concentration - - Weight 64.1 kg (141 lb 4.8 oz) 10/11/2024 3:17 P M ECONOMIC ADVISER Height 157.5 cm (5' 2) 10/11/2024 3:17 PM ECONOMIC ADVISER Body Mass Index 25.84 10/11/2024 3:17 PM ECONOMIC ADVISER Plan of Treatment Health Maintenance Due Date Last Done Comments Creatinine Level (Kidney Function Test) 1937 Diabetic Eye Exam 1935 Diabetic Office Visit with Foot Exam 1937 Hemoglobin A1C 1937 Potassium Level 1937 Sodium Level 1937 Urine Albumin 1937 Zoster Vaccines (1 of 2) 11/30/1987 Hepatitis B Vaccines (1 of 3 - Risk 3-dose series) 1997 RSV vaccine - (32-36 weeks) or 60+ years (1 - 1-dose 75+ series) 2012 COVID-19 Vaccine ( season) 2024 06/17/2022, 06/06/2021, 11/06/2020, Additional history exists Depression Screening (Annual PHQ-2) 08/10/2024 Fall Risk Screen (Annual) 08/10/2024 Influenza Vaccine (#1) 2025 , 05/28/2022, 05/28/2021, Additional history exists DTaP,Tdap,and Td Vaccines (3 - Td or Tdap) 05/15/2033 05/15/2023, 09/08/2011 Pneumococcal vaccine (50+ years) Completed 01/29/2023, 11/08/2014, 01/23/2004 IPV Vaccines Aged Out No longer eligi ble based on patient's age to complete this topic Insurance [facility] MEDICARE Advance Directives For more information, please contact: [phone] Documents on File Type Date Recorded Patient Air Pollution Specialist Expl anation Advance Directives 06/27/2011 12:00 AM Zahra rainey document. See document viewer. Care Teams Journal Entry Audit Clerk Relationship Specialty Start Date End Date Elsewhere, Pcp PCP - General 10/11/18
--- OUTSIDE RECORDS SUMMARY | 2025-03-12 15:42 | XMS_ITS | Clinical Summary ---
Author Organization [facility] Address [address] [place] [address] Care Team Providers Care Zyglo Inspector Name Role Phone Aishwarya Hager MD Primary Care Provider +1- [phone] Social History Tobacco Use Types Packs/Day Years Used Date Smoking Tobacco: Never Assessed Social Connections Answer Date Recorded Frequency of Communication with Friends and Fami ly Not on file 08/10/2021 Financial Resource Strain Answer Date R ecorded Difficulty of Paying Living Expenses Not on file 08/10/2021 Difficulty of Paying Living Expenses Not on file 08/10/2021 Comments Unknown Sex and Gender Information Value Date Recorded Sex Assigned at Not on file Legal Sex Female 3:51 PM CDT Gender Identity Not on file Sexual Orientation [...] Health Maintenance Due Date Last Done Comments Tetanus booster 1948 Depression screening for age 12+ 1949 BMI (ht and wt on same day) for age 18+ 11/30/1955 Pneumococcal series for age 50+ (1 of 1 - PCV) 11/30/1987 Zoster (shingles) series for age 50+ (1 of 2) 11/30/1987 DEXA/DXA scan for age 65+ 2002 Medicare Wellness for age 65+ 2002 RSV vaccine for adults or (1 - 1-dose 75+ series) 2012 COVID-19 vaccine series ( season) 2024 11/06/2020, 10/16/2020 Influenza Vaccine (#1) 2025 Hepatitis B series for 19+ Aged Out N o longer eligible based on patient's age to complete this topic Insurance [employer] [place] [place] ONLY Care Teams Zyglo Inspector Relationship Specialty Start Date End Date Aishwarya Hager MD [address] [place] [address] PCP - General Internal Medicine 05/17/20
--- NOTE | 2025-03-12 16:12 | CRLHL7_ITS ---
For Patients: As a result of the Cures Act, medical imaging exams and procedure reports are released immediately into your electronic medical record. You may view this report before your referring provider. If you have questions, please contact your health care provider. INDICATION: : Shortness of breath COMPARISON: Chest radiograph on August 20, 2023 TECHNIQUE: One view(s) of the chest FINDINGS: Stable cardiomegaly with likely mitral annular calcifications. No significant pulmonary vascular congestion or appreciable pulmonary edema. There is no focal airspace consolidation, pleural effusion, or pneumothorax. No displaced fractures. Remote left rib fractures. IMPRESSION: No acute cardiopulmonary process. Dictated by Edmond Lackey MD @ 03/12/2025 4:45:30 PM (Electronically Signed)
--- NOTE | 2025-03-12 16:16 | ED.GENADULT ---
HPI - General Adult General Date Seen: 03/12/25 Chief complaint: Shortness of Breath/Dyspnea Stated complaint: Shortness of Breath, loss of hearing Time Seen by Provider: 03/12/25 16:04 History of Present Illness HPI narrative: Patient is an 89-year-old who lives in an independent apartment [place] here with her daughter for evaluation of progressive shortness of breath and leg swelling over the past week. She has had a cough which is nonproductive and not associated with fever. She denies any chest pain. She has swelling which is equal in both legs and has not had any pain in her legs. She has not notice palpitations. She has not had any vomiting, does have some diarrhea intermittently depending on what she eats, but denies any black or bloody stools. Past medical history is reviewed, she has a history of diabetes, hypertension and high cholesterol as well as severe chronic renal insufficiency. She does not smoke. Related Data Home Medications ?Medication ?Instructions ?Recorded ?Confirmed aspirin 81 mg capsule 81 mg PO .3 x Wk 08/19/22 03/12/25 atenolol 25 mg PO 03/12/25 03/12/25 Previous Rx's ?Medication ?Instructions ?Recorded spironolactone 25 mg tablet 25 mg PO QHS #30 tabs 10/12/24 losartan 100 mg tablet 100 mg PO QDAY #90 tabs 10/18/24 simvastatin 20 mg tablet 20 mg PO QHS #90 tabs 10/18/24 furosemide 20 mg tablet (Lasix) 20 mg PO QAM #10 tabs 03/12/25 Allergies Allergy/AdvReac Type Severity Reaction Status Date / Time Sulfa (Sulfonamide Allergy Intermediate tachycardia Verified 10/18/24 09:25 Antibiotics) sulfamethoxazole Allergy Intermediate tachycardia Verified 10/18/24 09:25 trimethoprim Allergy Intermediate tachycardia Verified 10/18/24 09:25 amlodipine Allergy Mild Cough Verified 10/18/24 09:25 pseudoephedrine Allergy Mild Unknown Verified 10/18/24 09:25 Review of Systems Status of ROS: Reports: 10 or more systems reviewed and unremarkable except as noted in History and below [facility] Surgical History History of total abdominal hysterectomy and bilateral salpingo-oophorectomy (08/22/11) ?Z90.710 - Acquired absence of both cervix and uterus (ICD-10) ?Z90.722 - Acquired absence of ovaries, bilateral (ICD-10) ?Z90.79 - Acquired absence of other genital organ(s) (ICD-10) History of benign breast biopsy (08/22/11) ?Z98.890 - Other specified postprocedural states (ICD-10) History of appendectomy (08/22/11) ?Z90.49 - Acquired absence of other specified parts of digestive tract (ICD-10) Exam Narrative: Exam Narrative: Vital signs reviewed In general, alert, nontoxic elderly woman. Hard of hearing. Head: Normocephalic, atraumatic. Eyes: Sclera clear. Pupils equal and reactive. ENT: Mucous membranes moist. Neck: Supple without adenopathy. Heart: Bradycardic, irregular. No significant murmur. Lungs: Clear anteriorly. No increased work of breathing. Abdomen: Soft, nontender to palpation. Extremities: Well perfused, pulses intact. Moderate bilateral pitting edema, no erythema or calf tenderness.. Neurologic: Alert, conversant. Speech fluent, face symmetric. Moves all extremities equally. Skin: Warm, dry well perfused. Affect: Normal. Const: Vital Signs, click to edit/add: Vital Signs - 24 hr 03/12/25 15:43 03/12/25 16:13 03/12/25 16:15 Temperature 97.1 F L Pulse Rate Pulse Rate [Pulse Oximeter] 54 L Respiratory Rate 24 25 H 14 Blood Pressure Blood Pressure [Ri ght Upper Arm] 177/75 H Pulse Oximetry 98 Oxygen Delivery Me thod Room Air 03/12/25 16:30 03/12/25 16:32 03/12/25 16:45 Temperature Pulse Rate 48 L 48 L Pulse Rate [Pulse Oximeter] Respiratory Rate 42 H 30 H 22 Blood Pressure 172/85 H Blood Pressure [Ri ght Upper Arm] Pulse Oximetry 99 97 Oxygen Delivery Me thod 03/12/25 17:00 03/12/25 17:02 03/12/25 17:15 Temperature Pulse Rate 53 L 51 L 51 L Pulse Rate [Pulse Oximeter] Respiratory Rate 23 28 H 25 H Blood Pressure 161/73 H Blood Pressure [Ri ght Upper Arm] Pulse Oximetry 98 98 [facility] 18:10 08/03/25 18:12 03/12/25 18:15 Temperature Pulse Rate 59 L Pulse Rate [Pulse Oximeter] Respiratory Rate 33 H 34 H 22 Blood Pressure 169/81 H Blood Pressure [Ri ght Upper Arm] Pulse Oximetry 99 100 Oxygen Delivery Me thod 03/12/25 18:30 03/12/25 18:32 03/12/25 18:45 Temperature Pulse Rate 45 L 48 L 50 L Pulse Rate [Pulse Oximeter] Respiratory Rate 34 H 23 26 H Blood Pressure 154/76 H Blood Pressure [Ri ght Upper Arm] Pulse Oximetry 97 98 99 Oxygen Delivery Me thod 03/12/25 19:00 03/12/25 19:03 03/12/25 19:15 Temperature Pulse Rate 57 L 61 54 L Pulse Rate [Pulse Oximeter] Respiratory Rate 23 15 16 Blood Pressure 156/77 H Blood Pressure [Ri ght Upper Arm] Pulse Oximetry 99 94 97 Oxygen Delivery Me thod 03/12/25 19:30 03/12/25 19:31 03/12/25 19:32 Temperature Pulse Rate 54 L 53 L 51 L Pulse Rate [Pulse Oximeter] Respiratory Rate 26 H 22 26 H Blood Pressure 163/94 H Blood Pressure [Ri ght Upper Arm] Pulse Oximetry 99 98 98 Oxygen Delivery Me thod Course Course ED Course: Patient is an 89-year-old presenting with new onset shortness of breath which has worsened over the past week. She does not carry a prior diagnosis of congestive heart failure, she did have an echo in July of 2024 at which time her ejection fraction was normal 65%. She did have noted mild mitral regurgitation, severe mitral annular calcification with an indeterminate degree of mitral stenosis. Of note, she had an EKG on arrival which showed atrial fibrillation with a slow ventricular response of 44 beats per minute. Her heart rate when I was in with her was in the 50-60 range. Certainly atrial fibrillation and or bradycardia may be contributing to her symptoms. Diagnostic considerations would include acute coronary syndrome, bradycardia, arrhythmia, congestive heart failure, pulmonary embolism, pleural effusion, pneumonia, viral process, anemia, among others. Lab and x-ray ordered. She does not have any chest pain presently, no ischemic changes noted on her EKG. She is not hypoxic on room air, looks comfortable at rest. Workup appears really quite reassuring. Chest x-ray by my review looks clear, radiology reads this as no acute findings. She had a negative troponin, she had an elevated D-dimer at 1.86, she does have chronic renal insufficiency and her creatinine here is 2.3 which is stable for her, creatinine clearance of 13, I do not think a CT scan with contrast is in her best interest but I did do bilateral lower extremity Dopplers which were negative. She has remained with normal oxygen saturation here. Her BNP is elevated at almost 7000, it was about 1500 last time it was checked so this is a change for her. TSH is normal, hemoglobin is 10.9 which is not far off her baseline. Her potassium is a little elevated at 5.5, looking back through her records she has tended to run in the mid 5s. No EKG changes suggesting hyperkalemia. LFT showed minimal elevations in transaminases otherwise normal. She was ambulatory around the emergency department, O2 sats were 95-97% and she said she actually felt much better while here. At this time I do not see a clear indication for admission, she does drift into the 40s for heart rate when she is resting, but she is not symptomatic and blood pressures have been if anything elevated. When she is awake and talking her heart rate comes up into this 60s. I do think she has some fluid retention which may be contributing to her dyspnea on exertion. In the absence of hypoxia, tachycardia, chest pain, and with negative lower extremity Dopplers, I doubt PE as a cause for her symptoms. I reviewed all this with the patient and her daughter. We talked about her atrial fibrillation, discussed rationale for anticoagulation, and she is going to give that some thought. We discussed her fluid overload, I gave her a dose of Lasix here and I would like her to continue with Lasix for few days. Regarding her bradycardia, I am having her hold her atenolol. Will see if her heart rate drops up off of the atenolol. I have asked her to follow-up in clinic this week to review all of this, recheck her heart rate, potassium etcetera. Also reviewed that if she is feeling worse at any time, if she develops more significant shortness of breath, cannot function home, has chest pain, lightheadedness or fainting, worsening swelling etcetera, to come back to the ER. She and her daughter are comfortable with this plan and she is eager to go home. Vital Signs Vital signs: Initial Vital Signs Temperature 97.1 F L 03/12/25 15:43 Temperature Source Temporal Artery Scan 03/12/25 15:43 Pulse Rate 54 L 03/12/25 15:43 Pulse Rhythm Irregular 03/12/25 15:43 Respiratory Rate 24 03/12/25 15:43 Blood Pressure 177/75 H 03/12/25 15:43 Blood Pressure Mean 109 H 03/12/25 15:43 Blood Pressure Position Sitting 03/12/25 15:43 Pulse Oximetry 98 03/12/25 15:43 Oxygen Delivery Method Room Air 03/12/25 15:43 Vital Signs Temperature 97.1 F L 03/12/25 15:43 Pulse Rate 54 L 03/12/25 15:43 Respiratory Rate 24 03/12/25 15:43 Blood Pressure 177/75 H 03/12/25 15:43 Pulse Oximetry 98 03/12/25 15:43 Oxygen Delivery Method Room Air 03/12/25 15:43 Temperature 97.1 F L 03/12/25 15:43 Pulse Rate 51 L 03/12/25 19:32 Respiratory Rate 26 H 03/12/25 19:32 Blood Pressure 163/94 H 03/12/25 19:31 Pulse Oximetry 98 03/12/25 19:32 Oxygen Delivery Method Room Air 03/12/25 15:43 Medications Administered Medications: Discontinued Medications Generic Name Dose Route Start Last Admin Trade Name Freq PRN Reason Stop Dose Admin Furosemide 20 mg 03/12/25 19:24 03/12/25 19:43 Furosemide 20 Mg Tablet PO 03/12/25 19:25 20 mg ONCE ONE Administration Medical Decision Making Lab Data Labs: Lab Results 03/12/25 Range/Units 16:13 WBC 6.36 (4.50-11.00) K/uL RBC 3.56 L (4.00-5.20) m/uL Hgb 10.9 L (12.0-16.0) gm/dL Hct 34.9 (33.0-51.0) % MCV 98 (80-100) fL MCH 31 (26-34) pg MCHC 31 L (32-36) gm/dL RDW Coeff of Tyra 14.8 (11.5-15.5) % Plt Count 172 (140-440) K/uL Neut % (Auto) 67.9 (42.0-72.0) % Lymph % (Auto) 21.2 (20-44) % [place] % (Auto) 7.1 (0.0-11.0) % Eos % (Auto) 2.4 (0.0-7.0) % Baso % (Auto) 0.8 (0.0-3.0) % Neut # (Auto) 4.32 (1.7-7.0) K/uL Lymph # (Auto) 1.35 (0.90-2.90) K/uL [place] # (Auto) 0.50 (0.00-0.90) K/UL Eos # (Auto) 0.15 (0.00-0.50) K/uL Baso # (Auto) 0.05 (0.00-0.30) K/uL Abs Immat Gran (auto) 0.04 (0.00-0.30) K/uL Imm/Tot Granulo (auto) 0.6 % D-Dimer Quant (PE/DVT) 1.86 H (0.00-0.50) ug/ml Sodium 139 (135-149) mmol/L Potassium 5.5 H (3.6-5.1) mmol/L Chloride 115 H (96-114) mmol/L Carbon Dioxide 10 L (20-32) mmol/L Anion Gap 14 (7-15) mEq/L BUN 55 H (7-30) mg/dL Creatinine 2.3 H (0.5-1.5) mg/dL Estimated Creat Clear 13.63 Estimated GFR 20 ml/min Glucose 142 H (60-115) mg/dL Calcium 9.0 (8.4-10.6) mg/dL Magnesium 1.7 (1.5-2.6) mg/dL Total Bilirubin 0.5 (0.1-1.5) mg/dL Direct Bilirubin 0.2 (0.0-0.5) mg/dL AST 37 H (12-35) U/L ALT 40 H (4-35) U/L Alkaline Phosphatase 109 (40-150) U/L C-Reactive Protein < 0.5 L (0.5-1.0) mg/dL NT-Pro-B Natriuret Pep 6750 H (See Note) pg/mL Total Protein 7.4 (6.0-8.3) g/dL Albumin 4.4 (3.3-5.0) g/dL TSH 4.180 (0.270-4.200) uIU/mL POC Troponin I 0.01 (0.01-0.04) ng/ml Discharge Plan Discharge Clinical Impression: Dyspnea on exertion, Atrial fibrillation, Bilateral edema of lower extremity Patient Disposition: Home, Self-Care Condition: Stable Instructions: A-fib (Atrial Fibrillation) (ED), Leg Edema (ED) Additional Instructions: 1) regarding your difficulty breathing, your chest x-ray looks good today, but I suspect you are somewhat fluid overloaded. I am going to add another diuretic to your regimen, Lasix, for a few days. I would like you to be seen in clinic this week, by Dr. Hager if available otherwise Dr. Granado is a good option. 2) regarding your atrial fibrillation and slow heart rate, as discussed, we would recommend anticoagulation for prevention of stroke. We usually use a medicine called Jing. You can give this little more thought, and discussed that with your clinic doctor this week. Your heart rate is somewhat slow here today, and I would like you to discontinue your atenolol for now to see if this improves your heart rate. If at any time you feel lightheaded or have a fainting spell, if you have chest pain, if he becomes significantly more short of breath, you should come back to the ER. Continue all of your other medications as prescribed. Prescriptions: New furosemide [Lasix] 20 mg tablet 20 mg PO QAM Qty: 10 2RF No Action aspirin 81 mg capsule 81 mg PO .3 x Wk losartan 100 mg tablet 100 mg PO QDAY Qty: 90 3RF simvastatin 20 mg tablet 20 mg PO QHS Qty: 90 3RF atenolol 25 mg PO spironolactone 25 mg tablet 25 mg PO QHS Qty: 30 0RF Follow Up/Referrals: Aishwarya Hager MD [Primary Care Provider, Internal Medicine] Stand Alone Forms: [facility] Info Instructions
[2025-03-12 16:26] LABS: Hematocrit 34.9 % (33.0-51.0); Hemoglobin* 10.9 gm/dL (12.0-16.0); Immature Granulocytes Abs Auto 0.04 K/uL (0.00-0.30); Immature Granulocytes Pct Auto 0.6 %; Lymphocytes Absolute Auto 1.35 K/uL (0.90-2.90); Mean Corpuscular HGB Conc 31 gm/dL (32-36); Mean Corpuscular Hemoglobin 31 pg (26-34); Mean Corpuscular Volume 98 fL (80-100); RDW Coefficient of Variation % 14.8 % (11.5-15.5); Red Blood Count 3.56 m/uL (4.00-5.20); White Blood Count* 6.36 K/uL (4.50-11.00)
[2025-03-12 16:32] LABS: Slide Review Reflex No
[2025-03-12 16:40] LABS: Albumin* 4.4 g/dL (3.3-5.0); Chloride* 115 mmol/L (96-114); Potassium* 5.5 mmol/L (3.6-5.1); Sodium* 139 mmol/L (135-149)
[2025-03-12 16:42] LABS: Blood Urea Nitrogen* 55 mg/dL (7-30); Creatinine* 2.3 mg/dL (0.5-1.5); Est. Creatinine Clearance* 13.63; Estimated Glomerular Filt Rate 20 ml/min
[2025-03-12 16:43] LABS: Alanine Aminotransferase* 40 U/L (4-35); Alkaline Phosphatase* 109 U/L (40-150); Aspartate Amino Transferase* 37 U/L (12-35); Bilirubin Direct* 0.2 mg/dL (0.0-0.5); Bilirubin Total* 0.5 mg/dL (0.1-1.5); Calcium* 9.0 mg/dL (8.4-10.6); Glucose* 142 mg/dL (60-115); Total Protein* 7.4 g/dL (6.0-8.3)
[2025-03-12 16:44] LABS: D Dimer Quantitative* 1.86 ug/ml (0.00-0.50)
[2025-03-12 16:49] LABS: Anion Gap 14 mEq/L (7-15); Carbon Dioxide* 10 mmol/L (20-32)
[2025-03-12 17:00] LABS: NT Pro B Type NatriureticPept* 6750 pg/mL (See Note)
[2025-03-12 17:17] LABS: Troponin, Point-of-Care* 0.01 ng/ml (0.01-0.04)
[2025-03-12 17:37] LABS: TSH With Reflex to FT4* 4.180 uIU/mL (0.270-4.200)
--- NOTE | 2025-03-12 17:50 | CRLHL7_ITS ---
For Patients: As a result of the Century Cures Act, medical imaging exams and procedure reports are released immediately into your electronic medical record. You may view this report before your referring provider. If you have questions, please contact your health care provider. INDICATION: Edema, elevated D-dimer. TECHNIQUE: Ultrasound venous duplex bilateral lower extremity. Compression venous exam was performed using camacho-scale, color Doppler, and spectral Doppler analysis. COMPARISON: None. FINDINGS: Deep veins: Sonographic imaging demonstrates the bilateral common femoral, deep femoral, superficial femoral, popliteal, and posterior tibial veins to be fully compressible with normal color Doppler blood flow. Superficial veins: Greater saphenous vein is fully compressible. Echogenic soft tissue, likely consistent with edema. IMPRESSION: No evidence of DVT in the bilateral lower extremities. Dictated by Blaze Swan MD @ 03/12/2025 7:34:25 PM (Electronically Signed)
[2025-03-12] MEDS: FUROSEMIDE 20 MG TABLET PO (19:43)
== END 2025-03-12 19:54 | disposition home or self-care (01) ==
PROVIDERS: Emergency Provider Emergency Medicine; PCP Internal Medicine
DX: I48.91 Unspecified atrial fibrillation (principal); R60.0 Localized edema
CPT/HCPCS: 36415; 71045; 80048; 80076; 83735; 83880; 84443; 84484; 85025; 85379; 86140; 93005; 93970; 94761; 99284; 99285; A9270

== ENCOUNTER 2025-03-23 09:29 | Outpatient (CLI) | payer MEDICARE, BC, SELFPAY | END 2025-03-23 09:30 | disposition home or self-care (01) | LOC: NFLDREF 04-01 20:18 | PROVIDERS: PCP Family Medicine; Referring Provider Family Medicine; Visit Provider Internal Medicine Nephrology | DX: E11.29 Type 2 diabetes mellitus with other diabetic kidney complication (principal); E11.22 Type 2 diabetes mellitus with diabetic chronic kidney disease; I13.0 Hypertensive heart and chronic kidney disease with heart failure and stage 1 through stage 4 chronic kidney disease, or unspecified chronic kidney disease; I50.32 Chronic diastolic (congestive) heart failure; N18.4 Chronic kidney disease, stage 4 (severe); R80.9 Proteinuria, unspecified; D63.1 Anemia in chronic kidney disease; N25.81 Secondary hyperparathyroidism of renal origin | CPT/HCPCS: 80061; 80069; 82043; 82570; 82728; 83540; 83550; 83970; 84450; 84460; 84550; 86140; 87086 ==

== ENCOUNTER 2025-04-18 13:06 | Outpatient (CLI) | payer MEDICARE, BC, SELFPAY | END 2025-04-18 13:07 | disposition home or self-care (01) | LOC: NFLDREF 04-24 07:48 | PROVIDERS: PCP Family Medicine; Referring Provider Family Medicine; Visit Provider Family Medicine | DX: I48.91 Unspecified atrial fibrillation (principal) | CPT/HCPCS: 85610 ==

== ENCOUNTER 2025-04-21 08:49 | Outpatient (CLI) | payer MEDICARE, BC, SELFPAY | END 2025-04-21 08:50 | disposition home or self-care (01) | LOC: NFLDREF 04-25 08:51 | PROVIDERS: PCP Family Medicine; Referring Provider Family Medicine; Visit Provider Family Medicine | DX: I48.91 Unspecified atrial fibrillation (principal); Z79.01 Long term (current) use of anticoagulants | CPT/HCPCS: 85610 ==

== ENCOUNTER 2025-05-19 13:15 | Outpatient (CLI) | payer MEDICARE, BC, SELFPAY | END 2025-05-19 13:16 | disposition home or self-care (01) | LOC: NFLDREF 05-22 18:27 | PROVIDERS: PCP Family Medicine; Referring Provider Family Medicine; Visit Provider Family Medicine | DX: I48.91 Unspecified atrial fibrillation (principal); Z79.01 Long term (current) use of anticoagulants | CPT/HCPCS: 85610 ==

== ENCOUNTER 2025-07-22 03:42 | Emergency (ER) | payer MEDICARE, BC, SELFPAY ==
[2025-07-22] VITALS (9 sets, daily range): BP systolic 156–165; BP diastolic 69–81; PULSE 57–72; RESP 6–22; TEMP 36; O2SAT 94–100; BMI 27.3
--- OUTSIDE RECORDS SUMMARY | 2025-07-22 03:44 | XMS_ITS | Clinical Summary ---
Author Organization [facility] Address [address] [place] [address] Care Team Providers Care Digestion Operator Name Role Phone Unavailable Primary Care Provider Unavailabl e Source Comments Patient records contain information from all sites at [facility]. For routine questions regarding patient records, call [phone] during business hours, M-F 8:00 AM - 5:00 PM Central Time. Record requests for emergency care only can be directed to [phone] at any time.[facility] Allergies Active AllergyReactionsCriticalityNoted RcogLzpxhbpuAimoxgqnnlMrnbe83/13/2024 PseudoephedrineOther (see comments)Low03/17/2025Sulfa (Sulfonamide Antibiotics) Rash09/22/20231784GqurckpyzsvsHkultuetqahyOqoa33/08/2025 Medications MedicationSigDispense QuantityRefillsLast FilledStart DateEnd DateStatus losartan (Cozaar) 100 mg tablet Take 1 tablet (100 mg total) by mouth daily. 90 tablet ctive simvastatin (Zocor) 20 mg tablet Take 1 tablet (20 mg total) by mouth at bedtime. 90 tablet ctive spironolactone (Aldactone) 25 mg tablet Take 1 tablet (25 mg total) by mouth daily. 90 tablet ctive isosorbide mononitrate (Imdur) 120 mg 24 hr tablet Take 1 tablet (120 mg total) by mouth daily. 90 tablet ctive warfarin (Jantoven) 5 mg tablet 5 mg orally every day04/01/2025tive furosemide (Lasix) 20 mg tablet Take 20 mg by mouth every morning.Active dapagliflozin propanediol (Farxiga) 10 mg tablet Take 1 tablet (10 mg total) by mouth daily. 90 tablet 310/5106Active Active Problems ProblemNoted DateDiagnosed DateChronic Diastolic (Congestive) Heart Failure 10/11/20245090Gwcfei83/04/2025hronic Kidney Disease Stage 4 Glomerular Filtration Rate 15-29009/22/2023iabetes Mellitus Type Hyperparathyroidism Renal Tyajwxqmu67/13/2024nemia Of Chronic Renal Sqcefiu8709/22/2023Hypertensive Chronic Kidney Disease With Stage 1 Through Stage 4 Chronic Kidney Disease, Or Unspecif ied Chronic Kidney Hjgzkcl4509/22/20236286Xoccfdeseyon70/13/2024hronic Metabolic Ashojtrg31/13/2024 Encounters DateTypeDepartmentCare QpieAhtcmcuudym33/01/2025 8:15 AM CDTComprehensive Visit Department of Cardiovascular Medicine in [place], [place] [address] [place] [address] Franklin Sethi M.D. Chronic Diastolic (Congestive) Heart Failure (HCC) (Primary Dx)05/10/2025 Clinical Communication Department of Cardiovascular Medicine in [place], [place] [address] [place] [address] Franklin Sethi M.D. 05/09/2025 1:28 PM CDT - 05/09/2025 11:59 PM CDTHospital Encounter Department of Cardiovascular Diseases in [place], [place] [address] [place] [address] Ada Donahue APRN, C.N.P. Atrial Fibrillation Unspecified (HCC); Congestive Heart Failure (HCC) Discharge Disposition: Home or Self Care05/09/2025 1:00 PM CDT - 05/09/2025 1:27 PM CDTHospital Encounter Department of Cardiac Rehabilitation in [place], [place] [address] [place] [address] Ada Donahue APRN, C.N.P. Atrial Fibrillation Unspecified (HCC); Congestive Heart Failure (HCC) Discharge Disposition: Home or Self Care05/09/2025 10:00 AM CDTDiagnostic Division of Pulmonary Medicine in [place], [place] [address] [place] [address] Ada Donahue APRN, C.N.P. Atrial Fibrillation Unspecified (HCC); Congestive Heart Failure (HCC)05/09/2025 9:57 AM CDT - 05/09/2025 12:59 PM CDT Hospital Encounter Department of Radiology, [facility], in [place], [place] [address] [place] [address] Ada Donahue APRN, C.N.P. Atrial Fibrillation Unspecified (HCC); Congestive Heart Failure (HCC) Discharge Disposition: Home or Self Care05/09/2025 8:04 AM CDT - 05/09/2025 9:56 AM CDTHospital Encounter Department of Laboratory Medicine and Pathology, [facility] in [place], [place] [address] [place] [address] Ada Donahue APRN, C.N.P. Atrial Fibrillation Unspecified (HCC); Congestive Heart Failure (HCC) Discharge Disposition: Home or Self Care05/01/2025Episode Changes Department of Cardiovascular Diseases in [place], [place] [address] [place] [address] Kaila Villaseñor 04/25/2025 10:00 AM CDTVirtual Visit Department of Cardiovascular Medicine in [place], [place] [address] [place] [phone] Ada Donahue APRN, C.N.P. 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 15-29 (HCC); Atrial Fibrillation Paroxysmal (HCC); Bradycardiafrom Last 3 Months Immunizations ImmunizationAdministration DatesNext WnvK0P3 All Forms08/21/2009 Social History Tobacco UseTypesPacks/DayYears UsedDateSmoking Tobacco: Never Assessed CommentsUnknownSex and Gender InformationValueDate RecordedSex Assigned at Not on fileLegal PnlMbjjgj22/02/2017 11:41 AM CSTGender IdentityNot on file Sexual OrientationNot on file Last Filed Vital Signs Vital SignReadingTime TakenCommentsBlood Vowausqv225/7510/08/2024 8:15 AM CDT Pjcit407505/10/2025 8:15 AM CDTTemperature--Respiratory Rate--Oxygen Saturation-- Inhaled Oxygen Concentration--Yhmfsg02.8 kg (151 lb 10.8 oz)05/10/2025 8:15 AM CTGDlmyib904.6 cm (5' 0.08)05/10/2025 8:15 AM CDTBody Mass Index29.5405/10/2025 8:15 AM CDT Plan of Treatment Health MaintenanceDue DateLast DoneCommentsDiabetic Eye Exam1937Diabetic Office Visit with Foot Exam1937Zoster Vaccines (1 of 2)11/30/1987Hepatitis B Vaccines (1 of 3 - Risk 3-dose series)1997RSV vaccine - (32-36 weeks) or 50+ years (1 - 1-dose 75+ series)2012Depression Screening (Annual PHQ-2)08/10/2024OVID-19 Vaccine ( season)2025 06/17/2022, 06/06/2021, 11/06/2020, Additional history existsInfluenza Vaccine (#1)/01/2023, 05/28/2022, 05/28/2021, Additional history exists Hemoglobin A1C, 03/23/2025Urine Ncjxlin51 Creatinine Level (Kidney Function Test), 03/23/2025Potassium Level, 03/23/2025Sodium Level, 03/23/2025DTaP,Tdap,and Td Vaccines (3 - Td or Tdap), 09/08/2011Pneumococcal vaccine (50+ years)Qjpabokjs98/22/2023, 11/08/2014, 01/23/2004Fall Risk Screen (Annual)Wbrmtvisu83/01/2025IPV VaccinesAged OutNo longer eligible based on patient's age to complete this topic Procedures Procedure NamePriorityDate/TimeAssociated DiagnosisComments(TTE) 2D ECHO DOPPLER WOVEYTrpkycr79/30/2025 3:10 PM CDT Atrial Fibrillation Unspecified (HCC) Congestive Heart Failure (HCC) 6 MINUTE IIRPHunsakz23/30/2025 1:00 PM CDT Atrial Fibrillation Unspecified (HCC) Congestive Heart Failure (HCC) INKPogzbqc48/30/2025 12:53 PM CDT Atrial Fibrillation Unspecified (HCC) Congestive Heart Failure (HCC) DX CHEST AP OR PA AND LATERAL 2 VIEWSRAD - Routine (most inpatients and all outpatients)05/09/2025 10:07 AM CDT Atrial Fibrillation Unspecified (HCC) Congestive Heart Failure (HCC) CBC WITHOUT DIFFERENTIAL, WWxuahhr21/30/2025 8:23 AM CDT Atrial Fibrillation Unspecified (HCC) Congestive Heart Failure (HCC) LIPID PANEL, RAjzyjij13/30/2025 8:23 AM CDT Atrial Fibrillation Unspecified (HCC) Congestive Heart Failure (HCC) FERRITIN, MSmzzhtu19/30/2025 8:23 AM CDT Atrial Fibrillation Unspecified (HCC) Congestive Heart Failure (HCC) THYROID FUNCTION CASCADE, TPxqpkrh02/30/2025 8:23 AM CDT Atrial Fibrillation Unspecified (HCC) Congestive Heart Failure (HCC) PROTHROMBIN TIME (PT), HKfcvugy28/30/2025 8:23 AM CDT Atrial Fibrillation Unspecified (HCC) Congestive Heart Failure (HCC) URIC ACID, S/LIryxpek31/30/2025 8:23 AM CDT Atrial Fibrillation Unspecified (HCC) Congestive Heart Failure (HCC) NT-PRO B-TYPE NATRIURETIC PEPTIDE (BNP), RWdvujtk82/30/2025 8:23 AM CDT Atrial Fibrillation Unspecified (HCC) Congestive Heart Failure (HCC) MAGNESIUM, THsteiyz31/30/2025 8:23 AM CDT Atrial Fibrillation Unspecified (HCC) Congestive Heart Failure (HCC) HEMOGLOBIN A1C, VVmpwmfr75/30/2025 8:23 AM CDT Atrial Fibrillation Unspecified (HCC) Congestive Heart Failure (HCC) GLUCOSE, FASTING, S/EVhgumoq03/30/2025 8:23 AM CDT Atrial Fibrillation Unspecified (HCC) Congestive Heart Failure (HCC) BILIRUBIN DIRECT, S/UEfurlcs85/30/2025 8:23 AM CDT Atrial Fibrillation Unspecified (HCC) Congestive Heart Failure (HCC) COMPREHENSIVE METABOLIC PANEL, S/HBgbyyoq54/30/2025 8:23 AM CDT Atrial Fibrillation Unspecified (HCC) Congestive Heart Failure (HCC) PUL HOME OVERNIGHT CTUFLSLNHrtlebf47/30/2025 Atrial Fibrillation Unspecified (HCC) Congestive Heart Failure (HCC) ALBUMIN, RANDOM, IOcyedvw96/14/2025 9:35 AM CDT from Last 3 Months or Most Recently Relevant to Health Maintenance Results * (TTE) 2D ECHO DOPPLER COLOR (05/09/2025 3:10 PM CDT)ComponentValueRef Range Test MethodAnalysis TimePerformed AtPathologist SignatureEjection Fkmcczhq85IT CV EIMSSinus of Rowujjbe49YG CV EIMSSinotubular Erpheyyk04YR CV EIMSProximal Ascending Minou52UF CV EIMSMid-Ascending Gdlkc21GZ CV EIMSLV Mass Ilruj198WV CV EIMSLV End-Diastolic Ukgfdxei70HF CV EIMSLV End-Systolic Akiraemo35ME CV EIMSLeft ventricular stroke volume fxpjc13YE CV EIMSCardiac Output3.56MC CV EIMSCardiac Index2.13MC CV EIMSLV Interventricular Septal Wall Adqncbsxi46FF CV EIMSLV Posterior Wall Krbffdrqb7GW CV EIMSLV Relative Wall Mmiiodtda18OB CV EIMSRV 4-Chamber Basal Ypazaaix36SL CV EIMSRV 4-Chamber Mid Emjwhztc19IU CV EIMSRV 4-Chamber Eqxafh86TB CV EIMSTricuspid Annular S???0.1MC CV EIMSTR Vmax 2.89MC CV EIMSEstimated RA Pressure (Echo RAP)10MC CV EIMSRV Systolic Pressure (with Echo RAP)43MC CV EIMSTR Vmax/RVOT TVI0.22MC CV EIMSAV mean wuvaqbbd1AW CV EIMSAortic valve area2.06MC CV EIMSAortic Valve Dimensionless Index0.65MC CV EIMSMV mean xmgwnply9DR CV EIMSMV regurgitant ivvsza77WX CV EIMSTV Regurgitant Rcjnmh55XZ CV EIMSAortic Valve Systolic Peak Velocity1.4MC CV EIMS Anatomical RegionLateralityModalityEchocardiographySpecimen (Source)Anatomical Location / LateralityCollection Method / VolumeCollection TimeReceived Time 05/09/2025 1:43 PM CDT Impressions 05/09/2025 8:05 PM CDT LEFT VENTRICLE:Mildly enlarged left ventricular chamber size (by 2D linear assessment). Eccentric left ventricular hypertrophy. 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 Calculated 2-D linear left ventricular ejection fraction 57%. No regional wall motion abnormalities. Left ventricular cardiac index 2.13 l/min/m2. Indeterminate left ventricular diastolic function. RIGHT VENTRICLE:Mildly enlarged right ventricular chamber size. Mildly reduced right ventricular systolic function , visually. Right ventricular systolic pressure 43 mmHg (right atrial pressure of 10mmHg). ATRIA:Enlarged left atrial size by visual estimate. Severely enlarged right atrial size. CARDIAC VALVES:Trileaflet aortic valve. Sclerotic aortic valve. Mild aortic valve regurgitation. Thickened mitral valve. Moderately calcified mitral annulus. Mitral valve diastolic mean Doppler gradient 2 mmHg (heart rate 50 BPM). Moderate mitral valve regurgitation (multiple jets). Normal pulmonary valve. Trivial pulmonary valve regurgitation. Mildly thickened tricuspid valve. Moderate tricuspid valve regurgitation. OTHER ECHO FINDINGS:Normal inferior vena cava size with reduced inspiratory collapse (<50%). Normal sinus of Valsalva diameter of 38 mm. Proximal ascending aorta diameter of 38 mm. Normal mid ascending aorta diameter of 37 mm. Upper limit of normal of the mid ascending aorta, for age, sex and BSA is 39 mm. Abdominal aorta not visualized. Normal abdominal aorta Doppler flow pattern. No atrial level shunt by color flow imaging. No intracardiac mass or thrombus, but the left atrial appendage cannot be visualized adequately with transthoracic echo to exclude thrombus in this location. No ??pericardial effusion. For the complete report, see the Order-Level Documents. Narrative 05/09/2025 8:05 PM CDT For the complete report, see the Order-Level Documents. Hemodynamics Heart Rate: 46 BPM Blood Pressure: 176 / 70 mmHg ECG: Atrial fibrillation, Slow ventricular response Final Impressions 1. Mildly enlarged left ventricular chamber size (by 2D linear assessment), no regional wall motionabnormalities . Calculated left ventricular ejection fraction 57% with pdvu-lv-lrod variability in the setting of atrial fibrillation. 2. Mildly enlarged right ventricular chamber size, mildly reduced systolic function (visually). Right ventricular systolic pressure 43 mmHg (right atrial pressure of 10 mmHg). 3. Severe bi-atrial enlargement. 4. Moderately calcified mitral annulus. Mitral valve mean diastolic Doppler gradient 2 mmHg (HR 50 bpm). Moderate mitral regurgitation (visually, multiple jets). 5. Moderate tricuspid valve regurgitation. 6. Normal inferior vena cava size with reduced inspiratory collapse (<50%). 7. No ??pericardial effusion. 8. There are no previous [facility] echocardiograms available for comparison. Procedure Note Arianna Gomez M.D., Ph.D. - 05/09/2025 For the complete report, see the Order-Level Documents. Hemodynamics Heart Rate: 46 BPM Blood Pressure: 176 / 70 mmHg ECG: Atrial fibrillation, Slow ventricular response Final Impressions 1. Mildly enlarged left ventricular chamber size (by 2D linearassessment), no regional wall motion abnormalities . Calculated leftventricular ejection fraction 57% with vmvd-ua-pjbm variability in thesetting of atrial fibrillation. 2. Mildly enlarged right ventricular chamber size, mildly reduced systolic function (visually). Right ventricular systolic pressure 43 mmHg (rightatrial pressure of 10 mmHg). 3. Severe bi-atrial enlargement. 4. Moderately calcified mitral annulus. Mitral valve mean diastolicDoppler gradient 2 mmHg (HR 50 bpm). Moderate mitral regurgitation(visually, multiple jets). 5. Moderate tricuspid valve regurgitation. 6. Normal inferior vena cava size with reduced inspiratory collapse(<50%). 7. No pericardial effusion. 8. There are no previous [facility] echocardiograms available forcomparison. Findings LEFT VENTRICLE:Mildly enlarged left ventricular chamber size (by 2D linear assessment). Eccentric left ventricular hypertrophy. Anomalous leftventricular chord along the ventricular septum. Calculated 2-D linear leftventricular ejection fraction 57%. No regional wall motion abnormalities.Left ventricular cardiac index 2.13 l/min/m2. Indeterminate leftventricular diastolic function. RIGHT VENTRICLE:Mildly enlarged right ventricular chamber size. Mildlyreduced right ventricular systolic function , visually. Right ventricularsystolic pressure 43 mmHg (right atrial pressure of 10 mmHg). ATRIA:Enlarged left atrial size by visual estimate. Severely enlargedright atrial size. CARDIAC VALVES:Trileaflet aortic valve. Sclerotic aortic valve. Mildaortic valve regurgitation. Thickened mitral valve. Moderately calcifiedmitral annulus. Mitral valve diastolic mean Doppler gradient 2 mmHg (heartrate 50 BPM). Moderate mitral valve regurgitation (multiple jets). Normalpulmonary valve. Trivial pulmonary valve regurgitation. Mildly thickenedtricuspid valve. Moderate tricuspid valve regurgitation. OTHER ECHO FINDINGS:Normal inferior vena cava size with reducedinspiratory collapse (<50%). Normal sinus of Valsalva diameter of 38 mm.Proximal ascending aorta diameter of 38 mm. Normal mid ascending aortadiameter of 37 mm. Upper limit of normal of the mid ascending aorta, forage, sex and BSA is 39 mm. Abdominal aorta not visualized. Normalabdominal aorta Doppler flow pattern. No atrial level shunt by color flowimaging. No intracardiac mass or thrombus, but the left atrial appendagecannot be visualized adequately with transthoracic echo to excludethrombus in this location. No pericardial effusion. For the complete report, see the Order-Level Documents. Authorizing ProviderResult TypeResult StatusAda Donahue APRN, C.N.P.CV ECHO PROCEDURESFinal Result * 6 MINUTE WALK (05/09/2025 1:00 PM CDT)Specimen (Source)Anatomical Location / LateralityCollection Method / VolumeCollection TimeReceived Time Narrative Omaira Haynes M.D., Ph.D. - 05/09/2025 1:00 PM CDT Omaira Haynes M.D., Ph.D. 05/11/2025 12:23 PM Six Minute Walk Performed by: Elliot Servin CRAT Authorized by: Ada Donahue APRN, C.N.P. ?? Were medications taken in the last 24 hours?: yes ?? PRE WALK Assistive Device: ??4 Wheel Walker 6 Min Walk Distance Type: ??Track Height (cm): ??156 Weight (kg): ??67 BMI: ??27.5 Resting Heart Rate: ??72 Heart Rate Source: ??Apical Pulse Resp Rate: Resting SpO2: ??99 SpO2 Site: ??Finger Resting BP: ??146/76 BP Cuff Arm: ??Left BP Cuff Size: ??RegularSupplemental Oxygen used: ??Supplemental Oxygen Not Used Angina Scale: ??0 - No Angina Gillian Dyspnea: ??0 - Nothing at all Gillian Fatigue: ??0 - Nothing at all POST WALK Heart Rate: ??84 Heart Rate Source: ??Apical Pulse SpO2: ??99 BP: ??164/78 BP Cuff Side: ??Left Angina Scale: ??0 - No Angina Gillian Dyspnea: ??0 - Nothing at all Gillian Fatigue: ??0 - Nothing at all Time of Test: ??13:10 CDT Total Distance Walked (Feet): ??700 Total Distance Walked (Meters): ??213.36 Total # of Times Stopped: ??0 Time Stopped (Seconds): ??0 Time Walked (Seconds): ??360 CALCULATIONS Estimated MPH: ??1.3 Estimated METs: ??2 % of Predicted Distance: ??63.09 Authorizing ProviderResult TypeResult StatusAda Donahue APRN, C.N.P.CV STRESS PROCEDURESFinal Result * ECG 12 Lead (05/09/2025 12:53 PM CDT)ComponentValueRef RangeTest Method Analysis TimePerformed AtPathologist SignatureVentricular Rate ECG/Feu45WCO MUSEQRSD Dzqdnoza956qsKLGGEN Lpykdlla945znPDMXQHD Pxzjttrf522faBAVZK Axis2 degreesMUSET Wave Xpus26fzfdletSCXIGseeygqp (Source)Anatomical Location / LateralityCollection Method / VolumeCollection TimeReceived Time05/09/2025 12:53 PM CDT05/09/2025 3:29 PM CDT Impressions MUSE - 05/09/2025 1:20 PM CDT Atrial fibrillation with slow ventricular response Nonspecific ST and T wave abnormality When compared with ECG of 05-Aug-1993 12:19, Atrial fibrillation has replaced Sinus rhythm Vent. rate has decreased by 25 bpm Revised Report Narrative Procedure Note Elton Byrd M.D., Ph.D. - 05/09/2025 IMPRESSION: Atrial fibrillation with slow ventricular response Nonspecific ST and T wave abnormality When compared with ECG of 05-Aug-1993 12:19, Atrial fibrillation has replaced Sinus rhythm Vent. rate has decreased by 25 bpm Revised Report Authorizing ProviderResult TypeResult Palak Donahue APRN, C.N.P.ECG ORDERABLESEdited Result - FinalPerforming OrganizationAddressCity/State/ZIP Code Phone Number MUSE NA * DX Chest AP or PA and Lateral 2 Views (05/09/2025 10:07 AM CDT)Anatomical RegionLateralityModalityChest, Thoracic RST LOS, Thoracic ARZ LOS, Thoracic FLA LOSN/ADigital RadiographySpecimen (Source)Anatomical Location / Laterality Collection Method / VolumeCollection TimeReceived Time Impressions 05/09/2025 10:37 AM CDT Left pleural effusion has resolved. Otherwise no change. Vascular calcification. Mitral annulus calcification. Enlarged cardiac silhouette. Spinal curvature. Chest otherwise negative. Narrative 05/09/2025 10:37 AM CDT EXAM: DX CHEST AP OR PA AND LATERAL 2 VIEWS Procedure Note Maurice Lopez M.D. - 05/09/2025 EXAM: DX CHEST AP OR PA AND LATERAL 2 VIEWS IMPRESSION: Left pleural effusion has resolved. Otherwise no change. Vascularcalcification. Mitral annulus calcification. Enlarged cardiac silhouette.Spinal curvature. Chest otherwise negative. Authorizing ProviderResult TypeResult Palak Dnoahue APRN, C.N.P.IMG DIAGNOSTIC IMAGING PROCEDURESFinal Result * Lipid Panel (05/09/2025 8:23 AM CDT)ComponentValueRef RangeTest MethodAnalysis TimePerformed AtPathologist EvjoerredAzbbskhokastb79mo/dL05/09/2025 9:55 AM CDTDTLComment: ----REFERENCE VALUE---- Normal: <150 mg/dL Borderline High: 150-199 mg/dL High: 200-499 mg/dL Very High: > or =500 mg/dL Cholesterol, Mpyet441qd/dL05/09/2025 9:55 AM CDTDTLComment: ----REFERENCE VALUE---- Desirable: < 200 mg/dL Borderline High: 200 - 239 mg/dL High: > or = 240 mg/dL Cholesterol, LDL, Pakynqgqxg28ms/dL05/09/2025 9:55 AM CDTDTLComment: ----REFERENCE VALUE---- Desirable: <100 mg/dL Above Desirable: 100-129 mg/dL Borderline High: 130-159 mg/dL High: 160-189 mg/dL Very High: >=190 mg/dL ----ADDITIONAL INFORMATION---- LDL cholesterol calculated using the Trejo/NIH equation. Cholesterol, HDL, S75>=50 mg/dL05/09/2025 9:55 AM CDTDTLCholesterol, Non-HDL, Ddmrwiddxj03in/dL05/09/2025 9:55 AM CDTDTLComment: ----REFERENCE VALUE---- Desirable: <130 mg/dL Above Desirable: 130-159 mg/dL Borderline High: 160-189 mg/dL High: 190-219 mg/dL Very High: > or =220 mg/dL Fasting (8 HR or more)Yes05/09/2025 8:23 AM CDTDTLSpecimen (Source)Anatomical Location / LateralityCollection Method / VolumeCollection TimeReceived TimeBlood (Blood, Venous)05/09/2025 8:23 AM CDT05/09/2025 8:47 AM CDT Narrative Authorizing ProviderResult TypeResult StatusAda Donahue APRN, C.N.P.LAB BLOOD ADD-ONFinal ResultPerforming OrganizationAddressCity/State/ZIP CodePhone Number [facility] [address] [place] [address], [place] D[place] [facility] [address] [place] [address] * Thyroid Function [place] (05/09/2025 8:23 AM CDT)ComponentValueRef RangeTest MethodAnalysis TimePerformed AtPathologist SignatureTSH, Sensitive3.70.3 - 4.2 mIU/L05/09/2025 9:55 AM CDTDTLSpecimen (Source)Anatomical Location / LateralityCollection Method / VolumeCollection TimeReceived TimeBlood (Blood, Venous)05/09/2025 8:23 AM CDT05/09/2025 8:47 AM CDT Narrative Authorizing ProviderResult TypeResult StatusAda Donahue APRN, C.N.P.LAB BLOOD ADD-ONFinal ResultPerforming OrganizationAddressCity/State/ZIP CodePhone Number [facility] [address] [place] [address], [place] [address] * (ABNORMAL) NT-Pro B-Type Natriuretic Peptide (BNP) (05/09/2025 8:23 AM CDT) ComponentValueRef RangeTest MethodAnalysis TimePerformed AtPathologist SignatureNT-Pro CNP8841(H)<=540 pg/mL05/09/2025 9:55 AM CDTDTLComment: NT-proBNP values less than 300 pg/mL have a 99% negative predictive value for excluding acute congestive heart failure. A cutoff of 1200 pg/mL for patients with an eGFR<60 yields a diagnostic sensitivity and specificity of 89% and 72% for acute congestive heart failure. A diagnostic NT-proBNP cutoff of 1800 pg/mL has been suggested in adults over 75 years of age in the absence of renal failure. Specimen (Source)Anatomical Location / LateralityCollection Method / Volume Collection TimeReceived TimeBlood (Blood, Venous)05/09/2025 8:23 AM CDT 05/09/2025 8:47 AM CDT Narrative Authorizing ProviderResult TypeResult StatusAda Donahue APRN, C.N.P.LAB BLOOD ADD-ONFinal ResultPerforming OrganizationAddressCity/State/ZIP CodePhone Number [facility] [address] [place] [address], [facility] [address] [place] [address] * (ABNORMAL) Prothrombin Time (PT) (05/09/2025 8:23 AM CDT)ComponentValueRef RangeTest MethodAnalysis TimePerformed AtPathologist SignatureProthrombin Time, P26.9(H)9.4 - 12.5 sec05/09/2025 9:12 AM CDTDTLINR2.40.9 - 1. 9:12 AM CDTDTLComment: ----ADDITIONAL INFORMATION---- Standard intensity warfarin therapeutic range: 2.0 to 3.0 ?? High intensity warfarin therapeutic range: 2.5 to 3.5 Specimen (Source)Anatomical Location / LateralityCollection Method / Volume Collection TimeReceived TimeBlood (Blood, Venous)05/09/2025 8:23 AM CDT 05/09/2025 8:48 AM CDT Narrative Authorizing ProviderResult TypeResult StatusAda Donaheu APRN, C.N.P.LAB BLOOD ADD-ONFinal ResultPerforming OrganizationAddressCity/State/ZIP CodePhone Number [address] [place] [address] * (ABNORMAL) CBC without Differential (05/09/2025 8:23 AM CDT)ComponentValueRef RangeTest MethodAnalysis TimePerformed AtPathologist JvzezvlttUjyimqhzwd10.4 (L)11.6 - 15.0 g/dL05/09/2025 9:28 AM EYHLLSAliybwcexw03.8(L)35.5 - 44.9 % 05/09/2025 9:28 AM CDTDTLErythrocytes3.70(L)3.92 - 5.13 x10(12)/L05/09/2025 9:28 AM XRZXJIDEO82.178.2 - 97.9 fL05/09/2025 9:28 AM CDTDTLRBC Distrib Width 13.912.2 - 16.1 %05/09/2025 9:28 AM CDTDTLPlatelet Bnrka832610 - 371 x10(9)/L 05/09/2025 9:28 AM CDTDTLLeukocytes4.73.4 - 9.6 x10(9)/L05/09/2025 9:28 AM CDT DTLSpecimen (Source)Anatomical Location / LateralityCollection Method / Volume Collection TimeReceived TimeBlood (Blood, Venous)05/09/2025 8:23 AM CDT 05/09/2025 8:48 AM CDT Narrative Authorizing ProviderResult TypeResult StatusAda Boone Godfrey DAVIES, C.N.P.LAB BLOOD ADD-ONFinal ResultPerforming OrganizationAddressCity/State/ZIP CodePhone Number [facility] [address] [place] [address], [facility] [address] [place] [address] * (ABNORMAL) Uric Acid (05/09/2025 8:23 AM CDT)ComponentValueRef RangeTest MethodAnalysis TimePerformed AtPathologist SignatureUric Acid, S8.5(H)2.7 - 6.1 mg/dL05/09/2025 9:55 AM CDTDTLSpecimen (Source)Anatomical Location / LateralityCollection Method / VolumeCollection TimeReceived TimeBlood (Blood, Venous)05/09/2025 8:23 AM CDT05/09/2025 8:47 AM CDT Narrative Authorizing ProviderResult TypeResult StatusAda Donahue SAMSON, C.N.P.LAB BLOOD ADD-ONFinal ResultPerforming OrganizationAddressCity/State/ZIP CodePhone Number [facility] [address] [place] [address], [facility] [address] [place] [address] * Magnesium (05/09/2025 8:23 AM CDT)ComponentValueRef RangeTest MethodAnalysis TimePerformed AtPathologist SignatureMagnesium, S1.91.7 - 2.3 mg/dL05/09/2025 9:55 AM CDTDTLSpecimen (Source)Anatomical Location / LateralityCollection Method / VolumeCollection TimeReceived TimeBlood (Blood, Venous)05/09/2025 8:23 AM CDT05/09/2025 8:47 AM CDT Narrative Authorizing ProviderResult TypeResult StatusAda Norieganory DAVIES, C.N.P.LAB BLOOD ADD-ONFinal ResultPerforming OrganizationAddressCity/State/ZIP CodePhone Number [facility] [address] [place] [address], [facility] [address] [place] [address] * (ABNORMAL) Hemoglobin A1c (05/09/2025 8:23 AM CDT)ComponentValueRef RangeTest MethodAnalysis TimePerformed AtPathologist SignatureHemoglobin A1c, B6.7(H)4.0 - 5.6 %05/09/2025 9:52 AM CDTDTLComment: Hemoglobin A1c values greater than or equal to 6.5 percent are diagnostic for diabetes mellitus. ??Diagnosis should be confirmed by repeat testing. ??In diabetic patients, HbA1c goals should be discussed with healthcare provider. Specimen (Source)Anatomical Location / LateralityCollection Method / Volume Collection TimeReceived TimeBlood (Blood, Venous)05/09/2025 8:23 AM CDT 05/09/2025 8:48 AM CDT Narrative Authorizing ProviderResult TypeResult StatusAda Donahue APRN, C.N.P.LAB BLOOD ADD-ONFinal ResultPerforming OrganizationAddressCity/State/ZIP CodePhone Number [facility] [address] [place], [place] [address] [place] [address] * (ABNORMAL) Glucose, Fasting (05/09/2025 8:23 AM CDT)ComponentValueRef Range Test MethodAnalysis TimePerformed AtPathologist SignatureGlucose, P124(H)70 - 100 mg/dL05/09/2025 9:23 AM CDTDTLLast Vidnrz10fz44/30/2025 8:47 AM CDTDTL Specimen (Source)Anatomical Location / LateralityCollection Method / Volume Collection TimeReceived TimeBlood (Blood, Venous)05/09/2025 8:23 AM CDT 05/09/2025 8:47 AM CDT Narrative Authorizing ProviderResult TypeResult Palak Donahue APRN, C.N.P.LAB BLOOD NON ADD-ONFinal ResultPerforming OrganizationAddressCity/State/ZIP CodePhone Number [facility] [address] [place] [address], [facility] [address] [place] [address] * Ferritin (05/09/2025 8:23 AM CDT)ComponentValueRef RangeTest MethodAnalysis TimePerformed AtPathologist SignatureFerritin, S7711 - 328 mcg/L05/09/2025 9:55 AM CDTDTLSpecimen (Source)Anatomical Location / LateralityCollection Method / VolumeCollection TimeReceived TimeBlood (Blood, Venous)05/09/2025 8:23 AM CDT05/09/2025 8:47 AM CDT Narrative Authorizing ProviderResult TypeResult StatusAda Donahue APRN, C.N.P.LAB BLOOD ADD-ONFinal ResultPerforming OrganizationAddressCity/State/ZIP CodePhone Number [facility] [address] [address] * Bilirubin, Direct (05/09/2025 8:23 AM CDT)ComponentValueRef RangeTest Method Analysis TimePerformed AtPathologist SignatureBilirubin, Direct, S0.20.0 - 0.3 mg/dL05/09/2025 9:55 AM CDTDTLSpecimen (Source)Anatomical Location / LateralityCollection Method / VolumeCollection TimeReceived TimeBlood (Blood, Venous)05/09/2025 8:23 AM CDT05/09/2025 8:47 AM CDT Narrative Authorizing ProviderResult TypeResult StatusAda Donahue APRN, C.N.P.LAB BLOOD ADD-ONFinal ResultPerforming OrganizationAddressCity/State/ZIP CodePhone Number [facility] [address] [place] [address], [address] [address] * (ABNORMAL) Comprehensive Metabolic Panel (05/09/2025 8:23 AM CDT)Component ValueRef RangeTest MethodAnalysis TimePerformed AtPathologist Signature Potassium, S4.73.6 - 5.2 mmol/L05/09/2025 9:55 AM CDTDTLSodium, R731224 - 145 mmol/L05/09/2025 9:55 AM CDTDTLChloride, O25060 - 107 mmol/L05/09/2025 9:55 AM CDTDTLBicarbonate, S17(L)22 - 29 mmol/L05/09/2025 9:55 AM CDTDTLAnion Lwn176 - [address]/09/2025 9:55 AM CDTDTLBUN (Blood Urea Nitrogen), S39(H)6 - 21 mg/dL 05/09/2025 9:55 AM CDTDTLCreatinine2.54(H)0.59 - 1.04 mg/dL05/09/2025 9:55 AM CDTDTLEstimated GFR (eGFR)18(L)>=60 mL/min/BSA05/09/2025 9:55 AM CDTDTL Comment: Estimated GFR calculated using the 2020 CKD_EPI creatinine equation. Calcium, Total, S9.28.8 - 10.2 mg/dL05/09/2025 9:55 AM CDTDTLGlucose, SCANCELED mg/dL05/09/2025 8:47 AM CDTDTLComment: Duplicate test request. Result canceled by the ancillary. Protein, Total, S7.36.3 - 7.9 g/dL05/09/2025 9:55 AM CDTDTLAlbumin, S4.53.5 - 5.0 g/dL05/09/2025 9:55 AM CDTDTLAspartate Aminotransferase (AST), S208 - 43 U/L 05/09/2025 9:55 AM CDTDTLAlkaline Phosphatase, S141(H)35 - 104 U/L05/09/2025 9:55 AM CDTDTLAlanine Aminotransferase (ALT), S187 - 45 U/L05/09/2025 9:55 AM CDTDTLBilirubin, Total, S0.50.0 - 1.2 mg/dL05/09/2025 9:55 AM CDTDTLSpecimen (Source)Anatomical Location / LateralityCollection Method / VolumeCollection TimeReceived TimeBlood (Blood, Venous)05/09/2025 8:23 AM CDT05/09/2025 8:47 AM CDT Narrative Authorizing ProviderResult TypeResult StatusAda Donahue CELL COVERER, C.N.P.LAB BLOOD ADD-ONFinal ResultPerforming OrganizationAddressCity/State/ZIP CodePhone Number [facility] [address] [place] [address], [place] DTL [facility] [address] [place] [address] * Home Overnight Oximetry (05/09/2025)Specimen (Source)Anatomical Location / LateralityCollection Method / VolumeCollection TimeReceived Time05/09/[address] [facility] - 05/10/2025 9:20 AM CDT Procedure: Overnight oximetry was performed on room air. The patient stated they did not consume alcohol and did not take sedative medication on the night of the study, and stated quality of sleep was the same as usual. [place] Sleepiness Scale was 6. The time spent <89% was 0.0 minutes, with a 4% desaturation index of 0.6. Impression: Normal. ?? Authorizing ProviderResult TypeResult StatusAda Mely Godfrey DAVIES C.N.P.PFT ORDERABLESFinal ResultPerforming OrganizationAddressCity/State/ZIP CodePhone Number [facility] * (ABNORMAL) Albumin, Random, Urine (03/23/2025 9:35 AM CDT)ComponentValueRef RangeTest MethodAnalysis TimePerformed AtPathologist SignatureEXT Creatinine, Urine41.9mg/dLNOWHITE [facility] Microalbumin-Random, U46mg/dL [facility] Albumin/Creatinine Ratio1,090(H)0 - 30 [facility] LABORATORYSpecimen (Source)Anatomical Location / LateralityCollection Method / VolumeCollection TimeReceived Time03/23/2025 9:35 AM CDT Narrative [facility] - 03/23/2025 1:20 PM CDT Source result document attached to Order Number [id number] ([id number]) dated 03/23/2025. External results verified in Extract by Roxanne Garza on 03/23/2025 at 01:17 PM. Authorizing ProviderResult TypeResult StatusOrdering Provider Claude RaoLAB URINE ORDERABLESFinal ResultPerforming OrganizationAddressCity/State/ZIP Code Phone Number [facility] [address] [id number] [phone] from Last 3 Months or Most Recently Relevant to Health Maintenance Insurance Advance Directives For more information, please contact: [phone] TypeDate RecordedPatient RepresentativeExplanationAdvance Amsvtgspiy43/18/2011 12:00 AMLegacy document. See document viewer.
--- OUTSIDE RECORDS SUMMARY | 2025-07-22 03:44 | XMS_ITS | Encounter Summary ---
Author Organization [facility] Address [address] [place] [address] Care Team Providers Care Feed Mill Tender Name Role Phone Unavailable Primary Care Provider Unavailabl e Reason for Referral * Cardiovascular-Diagnostic (Routine) - AuthorizedSpecialtyDiagnoses / ProceduresReferred By ContactReferred To Contact Diagnoses Failure Heart (HCC) Procedures ECG Heart rhythm monitor (Holter) Franklin Sethi M.D. [address] [place] [address] Phone: tel: fax: Health System Referral IDStatusReasonStart DateExpiration DateVisits RequestedVisits [id number]/20251/2/202711 * Outpatient (Routine) - AuthorizedSpecialtyDiagnoses / ProceduresReferred By ContactReferred To Contact Diagnoses Failure Heart (HCC) Procedures ECG 12 Lead ID EKG 12 LEAD W I&R Franklin Sethi M.D. [address] [place] [address] Phone: tel: fax: Health System Referral IDStatusReasonStart DateExpiration DateVisits RequestedVisits [id number]/20251/2/202711 * Outpatient (Routine) - AuthorizedSpecialtyDiagnoses / ProceduresReferred By ContactReferred To ContactCardiovascular Disease Diagnoses Failure Heart (HCC) Franklin Sethi M.D. [address] [place] [address] Phone: tel: fax: Health System Referral IDStatusReasonStart DateExpiration DateVisits RequestedVisits [id number]/2/20254/ Scheduling Instructions can be seen by our heart failure nurse practitioners in 6 months Encounter Details DateTypeDepartmentCare Team (Latest Contact Info)Kksfwfbjkoe83/01/2025linical Communication Department of Cardiovascular Medicine in [place], [place] [address] [place] [phone] Franklin Sethi M.D. [address] [place] [phone] Social History Tobacco UseTypesPacks/DayYears UsedDateSmoking Tobacco: Never Assessed CommentsUnknownSex and Gender InformationValueDate RecordedSex Assigned at Not on fileLegal QbuHywkvk02/02/2017 11:41 AM CSTGender IdentityNot on file Sexual OrientationNot on filedocumented as of this encounter Plan of Treatment NameTypePriorityAssociated DiagnosesOrder ScheduleSodiumLabRoutine Failure Heart (HCC) Expected: 11/08/2025, Expires: 08/10/2026Glucose, FastingLabRoutine Failure Heart (HCC) Expected: 11/08/2025, Expires: 08/10/2026Creatinine with Estimated GFRLabRoutine Failure Heart (HCC) Expected: 11/08/2025, Expires: 08/10/2026ST (Aspartate Aminotransferase)Lab Routine Failure Heart (HCC) Expected: 11/08/2025, Expires: 08/10/2026UN (Blood Urea Nitrogen)LabRoutine Failure Heart (HCC) Expected: 11/08/2025, Expires: 08/10/2026Lipid PanelLabRoutine Failure Heart (HCC) Expected: 11/08/2025, Expires: 08/10/2026CBC with Differential, BloodLabRoutine Failure Heart (HCC) Expected: 11/08/2025, Expires: 08/10/2026S-TSH (Thyroid-Stimulating Hormone - Sensitive)LabRoutine Failure Heart (HCC) Expected: 11/08/2025, Expires: 08/10/2026ECG 12 LeadECGRoutine Failure Heart (HCC) Expected: 11/08/2025, Expires: 08/10/2026icarbonateLabRoutine Failure Heart (HCC) Expected: 11/08/2025, Expires: 08/10/2026PotassiumLabRoutine Failure Heart (HCC) Expected: 11/08/2025, Expires: 08/10/2026NT-Pro B-Type Natriuretic Peptide (BNP) LabRoutine Failure Heart (HCC) Expected: 11/08/2025, Expires: 08/10/2026ECG Heart rhythm monitor (Holter) Cardiac ServicesRoutine Failure Heart (HCC) Expected: 11/08/2025, Expires: 08/10/2026NameTypePriorityAssociated Diagnoses Order ScheduleCardiovascular Disease office visit (clinic) Health System; HF ClinicOutpatient ReferralRoutine Failure Heart (HCC) Expected: 11/08/2025, Expires: 08/10/2026documented as of this encounter Visit Diagnoses Diagnosis Failure Heart (HCC)- Primary documented in this encounter
--- OUTSIDE RECORDS SUMMARY | 2025-07-22 03:44 | XMS_ITS | Clinical Summary ---
Author Organization [facility] Address [address] [place] [address] Care Team Providers Care Barber Stylist Name Role Phone Aishwarya Hager MD Primary Care Provider [phone] Social History Tobacco UseTypesPacks/DayYears UsedDateSmoking Tobacco: Never AssessedSocial ConnectionsAnswerDate RecordedFrequency of Communication with Friends and Family Not on file08/10/2021Financial Resource StrainAnswerDate RecordedDifficulty of Paying Living ExpensesNot on file2Difficulty of Paying Living Expenses Not on file2CommentsUnknownSex and Gender InformationValueDate RecordedSex Assigned at BirthNot on fileLegal AabQeymxf74/03/2015 3:51 PM CDT Gender IdentityNot on fileSexual OrientationNot on file Last Filed Vital Signs Vital SignReadingTime TakenCommentsBlood Chgrzasi168/7009 4:02 PM CDT Ylnns780904/26/2021 4:02 PM CDTTemperature--Respiratory Rbhe963204/26/2021 4:02 PM CDTOxygen Saturation--Inhaled Oxygen Concentration--Eenjch60.8 kg (167 lb) 04/26/2021 4:02 PM CDTHeight--Body Mass Index-- Plan of Treatment Health MaintenanceDue DateLast DoneCommentsTetanus bwparbn4111/29/1948Depression screening for age 12+1949BMI (ht and wt on same day) for age 18+11/30/1955 Pneumococcal series for age 50+ (1 of 1 - PCV)11/30/1987Zoster (shingles) series for age 50+ (1 of 2)11/30/1987DEXA/DXA scan for age 65+2002Medicare Wellness for age 65+2002RSV vaccine for adults or (1 - 1-dose 75+ series)2012COVID-19 vaccine series (2024- season)2025 06/17/2022, 11/06/2020, 10/16/2020Influenza Vaccine (#1)2025Hepatitis B series for 19+Aged OutNo longer eligible based on patient's age to complete this topic Insurance Care Teams Team MemberRelationshipSpecialtyStart DateEnd Aishwarya Hager MD [address] [place], [place] [id number] PCP - GeneralInternal Tplplxcg10/8/20
--- NOTE | 2025-07-22 04:09 | CRLHL7_ITS ---
For Patients: As a result of the 21st Century Cures Act, medical imaging exams and procedure reports are released immediately into your electronic medical record. You may view this report before your referring provider. If you have questions, please contact your health care provider. INDICATION: Left flank pain COMPARISON: There are no prior studies for comparison TECHNIQUE: CT examination of the abdomen and pelvis was performed without intravenous contrast. Thin section axial images were obtained from the lung bases through the pubic symphysis. Oral contrast was not administered. Please note that all CT scans at this facility use dose modulation, iterative reconstruction, and/or weight-based dosing when appropriate to reduce radiation dose to as low as reasonably achievable. FINDINGS: LUNG BASES: Bibasilar opacities are probably due to atelectasis or scarring.The heart is significantly enlarged. Vascular and valvular calcifications are noted. LIVER/BILIARY SYSTEM:Limited evaluation due to lack of contrast and motion. The liver is grossly normal. The gallbladder is poorly seen. no biliary ductal dilation ADRENALS: Normal non-contrast appearance KIDNEYS, URETERS and BLADDER:The right kidney appears normal. The left kidney is atrophic. An exophytic hyperdense lesion is noted which may represent a neoplasm or a hyperdense cyst measuring 1.6 centimeters. This could be evaluated with a multiphase CT. There is abnormal increased density occupying the mid and lower pole of the left kidney with a few punctate calcifications. There is also hyperdense material in the proximal left ureter. I suspect an underlying neoplasm. This could be a renal cell carcinoma or transitional cell carcinoma. This could also be due to an unusual manifestation of stone disease or infection. A repeat study is a multi phase CT/renal mass protocol study may prove useful. There is gas within the bladder which could be due to infection. There is a hyperdense mass in the bladder which is favored to be a blood clot rather than a neoplasm. SPLEEN:Normal non-contrast appearance. PANCREAS: Normal non-contrast appearance. RETROPERITONEUM and MESENTERY: There is no mass, adenopathy or aortic aneurysm. GASTROINTESTINAL SYSTEM: There is no evidence of diverticulitis, colitis, mechanical obstruction, or appendicitis. The small bowel as visualized appears normal.Diverticulosis PELVIS: Abnormal bladder as mentioned above. OSSEOUS STRUCTURES and ABDOMINAL WALL: There is an age-appropriate appearance of the osseous structures.No significant abdominal wall defect. OTHER: No free fluid or free air. IMPRESSION: 1. Abnormal left kidney. There is an exophytic hyperdense mass measuring 1.6 centimeters which could represent a hyperdense cyst or a renal cell carcinoma. Abnormal increased density occupying the mid and lower pole of the left kidney with a few punctate calcifications. There is no hydronephrosis. I suspect this is neoplastic such as a renal cell carcinoma oriented towards the renal pelvis or a transitional cell carcinoma. A few punctate calcifications are also noted. A hyperdense mass is noted in the bladder measuring 7 centimeters which I favor represents blood clot rather than a true neoplasm. Gas within the bladder is noted which could be due to recent instrumentation or infection. Consider multiphase CT if possible for further evaluation 2. Other nonacute findings as discussed in the body of the report Please note that all CT scans at this facility use dose modulation, iterative reconstruction, and/or weight-based dosing when appropriate to reduce radiation dose to as low as reasonably achievable. Dictated by Devin Anderson MD @ 07/22/2025 4:50:17 AM (Electronically Signed)
--- NOTE | 2025-07-22 04:11 | ED_ITS ---
HPI - General Adult General Chief complaint: Urogenital Problems, Female Stated complaint: blood in urine Time Seen by Provider: 07/22/25 04:09 History of Present Illness HPI narrative: Patient is a 89-year-old woman who was brought in [facility] with left flank pain and hematuria. She has had symptoms off and on for last 3-4 days but her symptoms have worsened over the last 6 hours. She has had some nausea without vomiting. No fevers no chills no night sweats. No other related symptoms patient is otherwise in her usual state of health. She does have history of atrial fibrillation and is taking Coumadin. Pain is sharp and located in the left mid axillary line. Related Data Previous Rx's ?Medication ?Instructions ?Recorded spironolactone 25 mg tablet 25 mg PO QHS #30 tabs 01/01 losartan 100 mg tablet 100 mg PO QDAY #90 tabs 10/08 09/03 simvastatin 20 mg tablet 20 mg PO QHS #90 tabs walker (Ultra-Light Rollator misc) #1 ea 03/21/25 furosemide 20 mg tablet (Lasix) 20 mg PO QAM #90 tabs 04/12/25 warfarin 5 mg tablet 2.5 mg PO QDAY #30 tabs 12/02 ciprofloxacin HCl 250 mg tablet 250 mg PO BID #10 tabs 07/22/25 (Cipro) Allergies Allergy/AdvReac Type Severity Reaction Status Date / Time Sulfa (Sulfonamide Allergy Intermediate tachycardia Verified 07/22/25 04:04 Antibiotics) sulfamethoxazole Allergy Intermediate tachycardia Verified 07/22/25 04:04 trimethoprim Allergy Intermediate tachycardia Verified 07/22/25 04:04 amlodipine Allergy Mild Cough Verified 07/22/25 04:04 pseudoephedrine Allergy Mild Unknown Verified 07/22/25 04:04 Review of Systems Status of ROS: Reports: 10 or more systems reviewed and unremarkable except as noted in History and below [facility] Medical History Atrial fibrillation ?I48.91 - Unspecified atrial fibrillation (ICD-10) CHF (congestive heart failure) ?I50.9 - Heart failure, unspecified (ICD-10) GERD (gastroesophageal reflux disease) (2014) ?K21.9 - Gastro-esophageal reflux disease without esophagitis (ICD-10) Essential hypertension ?I10 - Essential (primary) hypertension (ICD-10) Mixed hyperlipidemia ?E78.2 - Mixed hyperlipidemia (ICD-10) History of type 2 diabetes mellitus ?Z86.39 - Personal history of other endocrine, nutritional and metabolic disease (ICD-10) 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, unspecified ear (ICD-10) Surgical History History of total abdominal hysterectomy and bilateral salpingo-oophorectomy (08/22/11) ?Z90.710 - Acquired absence of both cervix and uterus (ICD-10) ?Z90.722 - Acquired absence of ovaries, bilateral (ICD-10) ?Z90.79 - Acquired absence of other genital organ(s) (ICD-10) History of benign breast biopsy (08/22/11) ?Z98.890 - Other specified postprocedural states (ICD-10) History of appendectomy (08/22/11) ?Z90.49 - Acquired absence of other specified parts of digestive tract (ICD- 10) Social History What is your current living situation?: I presently have a place to live Problems where you live: no known problems In the past 12 months, utilities in danger of being shut off: no In past 12 months, lack of transportation kept you from medical appts, meetings, work, or getting things needed for daily living: no In the past 12 mos, have been you worried that your food would run out before you had money to buy more?: never true In the past 12 mos, the food you bought just didn't last and you didn't have money to buy more?: never true Smoking Status: Never smoker Do you use any of these nicotine containing products: None How often do you have a drink containing alcohol: never How often do you have six or more drinks on one occasion: Never AUDIT-C Alcohol total score: 0 Non-prescribed substance use: denies use How often does anyone, including family, friends and others, physically hurt you : never How often does anyone, including family, friends and others, insult or talk down to you: never How often does anyone, including family, friends and others, threaten you with harm: never How often does anyone, including family, friends and others, scream or curse at you: never service: No Exam Narrative: Exam Narrative: EXAM GENERAL: Patient appears comfortable and well. EYES: No scleral icterus. LYMPH: No supraclavicular or cervical lymphadenopathy. SKIN: Visible skin seen during exam normal or with benign process only. EXT: No dependent lower extremity pedal edema. HEART: Regular rate and rhythm with no murmurs, rubs, or gallops. LUNGS: Clear to auscultation bilaterally with no crackles or wheezes. ABD: Soft, non tender, non distended. PSYCH: Good eye contact, speech is not pressured. Const: Vital Signs, click to edit/add: Vital Signs - 24 hr 07/22/25 03:55 Temperature 96.8 F L Pulse Rate [Right Pulse Oximeter] 57 L Respiratory Rate 18 Blood Pressure [Ri ght Upper Arm] 165/81 H Pulse Oximetry 100 Oxygen Delivery Me thod Room Air Course Course ED Course: Patient seen examined. CT abdomen pelvis CBC comprehensive metabolic panel INR UA pending. She was given 500 mL of saline 4 mg of IV Zofran. Vital Signs Vital signs: Initial Vital Signs Temperature 96.8 F L 07/22/25 03:55 Temperature Source Temporal Artery Scan 07/22/25 03:55 Pulse Rate 57 L 07/22/25 03:55 Respiratory Rate 18 07/22/25 03:55 Blood Pressure 165/81 H 07/22/25 03:55 Blood Pressure Mean 109 H 07/22/25 03:55 Blood Pressure Position Supine 07/22/25 03:55 Pulse Oximetry 100 07/22/25 03:55 Oxygen Delivery Method Room Air 07/22/25 03:55 Vital Signs Temperature 96.8 F L 07/22/25 03:55 Pulse Rate 57 L 07/22/25 03:55 Respiratory Rate 18 07/22/25 03:55 Blood Pressure 165/81 H 07/22/25 03:55 Pulse Oximetry 100 07/22/25 03:55 Oxygen Delivery Method Room Air 07/22/25 03:55 Temperature 96.8 F L 07/22/25 03:55 Pulse Rate 57 L 07/22/25 03:55 Respiratory Rate 18 07/22/25 03:55 Blood Pressure 165/81 H 07/22/25 03:55 Pulse Oximetry 100 07/22/25 03:55 Oxygen Delivery Method Room Air 07/22/25 03:55 Medications Administered Medications: Discontinued Medications Generic Name Dose Route Start Last Admin Trade Name Bertin PRN Reason Stop Dose Admin Sodium Chloride 500 mls @ 500 mls/hr 07/22/25 04:10 07/22/25 04:43 0.9 % Sodium Chloride 500 Ml IV 07/22/25 05:09 500 mls/hr .Q1H MEME Administration Ondansetron HCl 4 mg 07/22/25 04:09 07/22/25 04:46 Ondansetron 2 Mg/Ml Inj IVP 07/22/25 04:10 4 mg ONCE ONE Administration Medical Decision Making MDM Narrative Medical decision making narrative: Patient presents with left flank pain hematuria. INR is therapeutic at 2.5 the pressure atrial fibrillation. She does have evidence of UTI with positive leukocyte esterase. She has significant hematuria is well. Chronic renal insufficiency is again noted. CT of the abdomen pelvis shows lesion on her left kidney which is could be cyst versus renal cell carcinoma. Outpatient ultrasound recommended. I did give her g Rocephin a device her on Cipro 250 mg b.i.d. for the next 5 days. I would have her follow-up with her primary doctor in the next 2-3 days to have a repeat INR and discuss further evaluation on kidney lesion and reassessment of her urinalysis an INR. Lab Data Labs: Lab Results 07/22/25 07/22/25 Range/Units 04:25 04:40 WBC 10.05 (4.50-11.00) K/uL RBC 3.65 L (4.00-5.20) m/uL Hgb 11.5 L (12.0-16.0) gm/dL Hct 33.6 (33.0-51.0) % MCV 92 (80-100) fL MCH 32 (26-34) pg MCHC 34 (32-36) gm/dL RDW Coeff of Tyra 14.0 (11.5-15.5) % Plt Count 209 (140-440) K/uL Neut % (Auto) 93.9 H (42.0-72.0) % Lymph % (Auto) 4.3 L (20-44) % [place] % (Auto) 1.4 (0.0-11.0) % Eos % (Auto) 0.0 (0.0-7.0) % Baso % (Auto) 0.3 (0.0-3.0) % Neut # (Auto) 9.40 H (1.7-7.0) K/uL Lymph # (Auto) 0.40 L (0.90-2.90) K/uL [place] # (Auto) 0.10 (0.00-0.90) K/UL Eos # (Auto) 0.00 (0.00-0.50) K/uL Baso # (Auto) 0.03 (0.00-0.30) K/uL Abs Immat Gran (auto) 0.01 (0.00-0.30) K/uL Imm/Tot Granulo (auto) 0.1 % INR 2.75 H (0.91-1.10) APTT 40 H (23-33) Seconds Sodium 136 (135-149) mmol/L Potassium 4.5 (3.6-5.1) mmol/L Chloride 108 (96-114) mmol/L Carbon Dioxide 12 L (20-32) mmol/L Anion Gap 16 H (7-15) mEq/L BUN 53 H (7-30) mg/dL Creatinine 2.8 H (0.5-1.5) mg/dL Estimated Creat Clear 11.20 Estimated GFR 16 ml/min Glucose 205 H (60-115) mg/dL Calcium 9.3 (8.4-10.6) mg/dL Total Bilirubin 0.7 (0.1-1.5) mg/dL AST 26 (12-35) U/L ALT 24 (4-35) U/L Alkaline Phosphatase 129 (40-150) U/L Total Protein 8.3 (6.0-8.3) g/dL Albumin 4.9 (3.3-5.0) g/dL Urine Color Red A (Yellow) Urine Appearance Turbid A (Clear) Urine pH 7.0 (5.0-8.5) Ur Specific [place] 1.020 (1.000-1.030) Urine Protein 3+ A (Negative) Urine Glucose (UA) Negative (Negative) Urine Ketones 1+ A (Negative) Urine Blood 3+ A (Negative) Urine Nitrite Positive A (Negative) Urine Bilirubin 2+ A (Negative) Urine Urobilinogen 1.0 (0.2-1.0) Ur Leukocyte Esterase 3+ A (Negative) Urine RBC >100 A (0-2) Urine WBC Not Reportable Ur Squamous Epith Cells Not Reportable Urine Bacteria Not Reportable Discharge Plan Discharge Clinical Impression: Urinary tract infection Patient Disposition: Home, Self-Care Condition: Stable Instructions: Urinary Tract Infection in Older Adults (ED) Additional Instructions: Follow-up with your doctor early this coming week to discuss ultrasound of the kidney as well as repeat assessment of urinalysis and INR. Ciprofloxacin as directed. Tylenol as needed Activity Level: No Restrictions Discharge Diet: Regular Prescriptions: New ciprofloxacin HCl [Cipro] 250 mg tablet 250 mg PO BID Qty: 10 0RF No Action losartan 100 mg tablet 100 mg PO QDAY Qty: 90 3RF simvastatin 20 mg tablet 20 mg PO QHS Qty: 90 3RF spironolactone 25 mg tablet 25 mg PO QHS Qty: 30 0RF (DME) Ultra-Light Rollator Misc See Rx Instructions .Route Qty: 1 0RF Rx Instructions: As directed furosemide [Lasix] 20 mg tablet 20 mg PO QAM Qty: 90 1RF warfarin 5 mg tablet 2.5 mg PO QDAY Qty: 30 0RF Protocol: Dose Management Condition: Thursday Dose/Route: 2.5 mg Instruction: 0.5 x 5 mg tablets Condition: Thursday Dose/Route: 2.5 mg Instruction: 0.5 x 5 mg tablets Condition: Thursday Dose/Route: 2.5 mg Instruction: 0.5 x 5 mg tablets Condition: Thursday Dose/Route: 2.5 mg Instruction: 0.5 x 5 mg tablets Condition: Dose/Route: 2.5 mg Instruction: 0.5 x 5 mg tablets Condition: Thursday Dose/Route: 2.5 mg Instruction: 0.5 x 5 mg tablets Condition: Thursday Dose/Route: 2.5 mg Instruction: 0.5 x 5 mg tablets Protocol Text: Adjustment Start Date: Thursday07/03/25 INR Value: 2.8 INR Date: 06/30/25 Recheck Date: 08/02/25 Follow Up/Referrals: Blaze Granado MD [Primary Care Provider, Family Practice] Stand Alone Forms: [employer] Info Instructions
[2025-07-22] MEDS: 0.9 % SODIUM CHLORIDE 500 ML 500 ML IV (04:43)
[2025-07-22] MEDS: ONDANSETRON 2 MG/ML inj 4 MG IVP (04:46)
[2025-07-22 04:54] LABS: Appearance Urine Turbid (Clear)
[2025-07-22 04:57] LABS: Hematocrit* 33.6 % (33.0-51.0); Hemoglobin* 11.5 gm/dL (12.0-16.0); Immature Granulocytes Abs Auto 0.01 K/uL (0.00-0.30); Immature Granulocytes Pct Auto 0.1 %; Mean Corpuscular HGB Conc 34 gm/dL (32-36); Mean Corpuscular Hemoglobin 32 pg (26-34); Mean Corpuscular Volume 92 fL (80-100); RDW Coefficient of Variation % 14.0 % (11.5-15.5); Red Blood Count* 3.65 m/uL (4.00-5.20); White Blood Count* 10.05 K/uL (4.50-11.00)
[2025-07-22 05:07] LABS: Chloride* 108 mmol/L (96-114); Lymphocytes Absolute Auto 0.40 K/uL (0.90-2.90); Slide Review Reflex No
[2025-07-22 05:08] LABS: Albumin* 4.9 g/dL (3.3-5.0); Potassium* 4.5 mmol/L (3.6-5.1); Sodium* 136 mmol/L (135-149)
[2025-07-22 05:10] LABS: Blood Urea Nitrogen* 53 mg/dL (7-30); Creatinine* 2.8 mg/dL (0.5-1.5); Est. Creatinine Clearance* 11.20; Estimated Glomerular Filt Rate 16 ml/min
[2025-07-22 05:11] LABS: Alanine Aminotransferase* 24 U/L (4-35); Alkaline Phosphatase* 129 U/L (40-150); Anion Gap 16 mEq/L (7-15); Aspartate Amino Transferase* 26 U/L (12-35); Bilirubin Total* 0.7 mg/dL (0.1-1.5); Calcium* 9.3 mg/dL (8.4-10.6); Carbon Dioxide* 12 mmol/L (20-32); Glucose* 205 mg/dL (60-115); INR 2.75 (0.91-1.10); Prothrombin Time 30.3 Seconds; Total Protein* 8.3 g/dL (6.0-8.3)
[2025-07-22] MEDS: cefTRIAXone 1 GM in 0.9 % SODIUM CHLORIDE Mini-bag 100 ML IVPB (05:31)
== END 2025-07-22 06:47 | disposition home or self-care (01) ==
PROVIDERS: Emergency Provider Internal Medicine; PCP Family Medicine
DX: N39.0 Urinary tract infection, site not specified (principal); Z79.01 Long term (current) use of anticoagulants
CPT/HCPCS: 36415; 74176; 80053; 81001; 81003; 85025; 85610; 85730; 87086; 94761; 96365; 96375; 99283; 99284; J0696; J1171; J2405; J7030

== ENCOUNTER 2025-07-22 15:22 | Emergency (ER) | payer MEDICARE, BC, SELFPAY ==
[2025-07-22 15:30] VITALS: BP 175/84; PULSE 76; RESP 20; TEMP 36.8; O2SAT 99
--- NOTE | 2025-07-22 16:06 | CRLHL7_ITS ---
For Patients: As a result of the Century Cures Act, medical imaging exams and procedure reports are released immediately into your electronic medical record. You may view this report before your referring provider. If you have questions, please contact your health care provider. INDICATION: Left flank pain TECHNIQUE: CT abdomen and pelvis without contrast. COMPARISON: CT abdomen and pelvis on July 22, 2025 performed earlier today FINDINGS: Lower chest: Dependent atelectasis. Cardiomegaly. Mitral annular calcifications. Coronary stent/calcification. Calcification of the descending thoracic aorta. No basilar effusion. Evaluation of the visceral organs is limited due to the lack of intravenous contrast. Liver: Non cirrhotic morphology. No contour deforming mass.. Gallbladder and bile ducts: No stones or inflammation. No biliary dilatation. Pancreas: Unremarkable.. Spleen: Normal in size.. Adrenal glands: No nodules.. Kidneys: Compared to earlier same day CT, similar appearance of the left-sided atrophic kidney with lower pole hyperdense measuring 1.6 cm. There is hyperdense material within the collecting system with masslike appearance with moderate to severe hydronephrosis. No significant perinephric fat stranding. Punctate nephrolith in the left interpolar region measuring 3 mm. Right kidney demonstrates no hydronephrosis or nephrolithiasis. GI tract: Nonobstructive bowel. Normal in caliber. No sign of mass or inflammation. Normal appendix. Vasculature: Abdominal aorta is normal in caliber. Moderate to marked calcification of the abdominal aorta and branch vessels. Tortuous abdominal aorta. Lymph nodes: No lymphadenopathy. Peritoneum/Abdominal Wall: Soft tissue stranding about the bilateral hips, left slightly greater than right with mild body wall anasarca. No sign of mass or infiltration. No free air or significant free fluid. Pelvis: Previously seen hematoma in the bladder is no longer seen. No pelvic masses. Punctate foci of air in the bladder. Bones: No acute fracture. No aggressive appearing lytic or blastic osseous lesion. Diffuse osseous demineralization. Marked multilevel degenerative changes of the spine. IMPRESSION: 1. Compared to earlier same day CT, similar appearance of the left-sided atrophic kidney with hyperdense lesion measuring 1.6 cm which is indeterminate. As before, there is hyperdense material within the collecting system with masslike appearance and moderate to severe hydronephrosis. Findings are suspicious for a neoplasm such as RCC with associated hematuria and hydronephrosis. If there is clinical suspicion for hematuria and active bleeding, recommend a multiphase CT for further evaluation. 2. Previously seen hematoma in the bladder has resolved. Punctate focus of gas within the bladder which may be secondary to recent instrumentation or infection. These findings were discussed with Dr. Tang on July 22, 2025 at 5:15 p.m.. Please note that all CT scans at this facility use dose modulation, iterative reconstruction, and/or weight-based dosing when appropriate to reduce radiation dose to as low as reasonably achievable. Dictated by Rosetta Luna MD @ 07/22/2025 5:21:26 PM (Electronically Signed)
[2025-07-22] MEDS: ONDANSETRON 2 MG/ML inj 4 MG IVP (16:08)
[2025-07-22 16:31] LABS: Lactate* 1.5 mmol/L (0.5-1.9)
[2025-07-22 16:36] LABS: Hematocrit* 31.3 % (33.0-51.0); Hemoglobin* 10.6 gm/dL (12.0-16.0); Immature Granulocytes Pct Auto 0.4 %; Mean Corpuscular HGB Conc 34 gm/dL (32-36); Mean Corpuscular Hemoglobin 31 pg (26-34); Mean Corpuscular Volume 92 fL (80-100); RDW Coefficient of Variation % 14.1 % (11.5-15.5); Red Blood Count* 3.42 m/uL (4.00-5.20); White Blood Count* 14.14 K/uL (4.50-11.00)
[2025-07-22 16:44] LABS: Immature Granulocytes Abs Auto 0.10 K/uL (0.00-0.30); Lymphocytes Absolute Auto 0.30 K/uL (0.90-2.90); Slide Review Reflex No
--- NOTE | 2025-07-22 16:57 | ED.GENADULT ---
HPI - General Adult General Chief complaint: Flank Pain Stated complaint: Kidney issues Time Seen by Provider: 07/22/25 15:37 Source: patient and family Mode of arrival: ambulatory Limitations: no limitations History of Present Illness HPI narrative: 89-year-old female presenting today with left flank pain. Patient was seen in the middle of the night yesterday (just over 12 hours ago) and diagnosed with a UTI. She states that she was placed on antibiotics. She returns today because the pain is unbearable. She has been dry heaving on and off today. No diarrhea. She continues to have hematuria now with larger blood clots. No abdominal pain. No fevers. Patient does have history of atrial fibrillation and is anticoagulated. Her INR last night was 2.75. Related Data Previous Rx's ?Medication ?Instructions ?Recorded spironolactone 25 mg tablet 25 mg PO QHS #30 tabs 10/12/24 losartan 100 mg tablet 100 mg PO QDAY #90 tabs 10/18/24 simvastatin 20 mg tablet 20 mg PO QHS #90 tabs 10/18/24 walker (Ultra-Light Rollator misc) #1 ea 03/21/25 furosemide 20 mg tablet (Lasix) 20 mg PO QAM #90 tabs 04/12/25 warfarin 5 mg tablet 2.5 mg PO QDAY #30 tabs 07/13/25 ciprofloxacin HCl 250 mg tablet 250 mg PO BID #10 tabs 07/22/25 (Cipro) Allergies Allergy/AdvReac Type Severity Reaction Status Date / Time Sulfa (Sulfonamide Allergy Intermediate tachycardia Verified 07/22/25 04:04 Antibiotics) sulfamethoxazole Allergy Intermediate tachycardia Verified 07/22/25 04:04 trimethoprim Allergy Intermediate tachycardia Verified 07/22/25 04:04 amlodipine Allergy Mild Cough Verified 07/22/25 04:04 pseudoephedrine Allergy Mild Unknown Verified 07/22/25 04:04 Review of Systems Status of ROS: Reports: 10 or more systems reviewed and unremarkable except as noted in History and below [facility] Medical History Atrial fibrillation ?I48.91 - Unspecified atrial fibrillation (ICD-10) CHF (congestive heart failure) ?I50.9 - Heart failure, unspecified (ICD-10) GERD (gastroesophageal reflux disease) (2014) ?K21.9 - Gastro-esophageal reflux disease without esophagitis (ICD-10) Essential hypertension ?I10 - Essential (primary) hypertension (ICD-10) Mixed hyperlipidemia ?E78.2 - Mixed hyperlipidemia (ICD-10) History of type 2 diabetes mellitus ?Z86.39 - Personal history of other endocrine, nutritional and metabolic disease (ICD-10) 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, unspecified ear (ICD-10) Surgical History History of total abdominal hysterectomy and bilateral salpingo-oophorectomy (08/22/11) ?Z90.710 - Acquired absence of both cervix and uterus (ICD-10) ?Z90.722 - Acquired absence of ovaries, bilateral (ICD-10) ?Z90.79 - Acquired absence of other genital organ(s) (ICD-10) History of benign breast biopsy (08/22/11) ?Z98.890 - Other specified postprocedural states (ICD-10) History of appendectomy (08/22/11) ?Z90.49 - Acquired absence of other specified parts of digestive tract (ICD-10) Social History What is your current living situation?: I presently have a place to live Problems where you live: no known problems In the past 12 months, utilities in danger of being shut off: no In past 12 months, lack of transportation kept you from medical appts, meetings, work, or getting things needed for daily living: no In the past 12 mos, have been you worried that your food would run out before you had money to buy more?: never true In the past 12 mos, the food you bought just didn't last and you didn't have money to buy more?: never true Smoking Status: Never smoker Do you use any of these nicotine containing products: None How often do you have a drink containing alcohol: never How often do you have six or more drinks on one occasion: Never AUDIT-C Alcohol total score: 0 Non-prescribed substance use: denies use How often does anyone, including family, friends and others, physically hurt you: never How often does anyone, including family, friends and others, insult or talk down to you: never How often does anyone, including family, friends and others, threaten you with harm: never How often does anyone, including family, friends and others, scream or curse at you: never service: No Exam Narrative: Exam Narrative: I reviewed patient's workup from last night: Const: Vital Signs, click to edit/add: Vital Signs - 24 hr 07/22/25 15:30 07/22/25 17:14 07/22/25 19:19 Temperature 98.3 F Pulse Rate [Right Pulse Oximeter] 76 81 Respiratory Rate 20 18 Blood Pressure [Ri ght Upper Arm] 175/84 H 186/73 H Pulse Oximetry 99 100 98 Oxygen Delivery Me thod Room Air Room Air 07/22/25 19:27 Temperature Pulse Rate [Right Pulse Oximeter] 85 Respiratory Rate 18 Blood Pressure [Ri ght Upper Arm] 179/89 H Pulse Oximetry 98 Oxygen Delivery Me thod Room Air Course Course ED Course: Reviewed the patient's workup from last night: Her white cell count was 10.5, hemoglobin was 11.5. INR was 2.75. Normal sodium and potassium. BUN was elevated at 53 and creatinine was 2.8. Urine was grossly positive for signs of infection with greater than [address] scan done yesterday showed an abnormally increased density occupying the mid and lower pole of the left kidney with hyperdense material in the proximal left ureter. Underlying neoplasm suspected. Per Radiology this could also be due to an unusual manifestation of stone disease or infection. A repeat study with a multi phase CT/renal mass protocol was recommended. Given the patient's poor renal function we discussed that giving her at this time could push her into worsening renal failure requiring dialysis. Therefore we will repeat the CT without contrast to see if there is any change in the hyperdense material in the proximal left ureter that would indicate stones verses neoplasm. We will also repeat blood work to see if there have been changes in her hemoglobin as we may need to consider stopping her anticoagulation. Hemoglobin went from 11.5-10.6. White cell count increased from [id number]. Renal function unchanged. CRP is 2.9. Repeat CT was obtained. Discussed with radiologist who felt that there was enough suspicion to believe that the tumor was actively bleeding. Discussed with Urology at [facility] who recommended Latif be placed. Also recommended probable MRI with gadolinium, biopsy her nephrostomy tube. Discussed patient with Dr. stevenson, hospitalist at [facility] who accepts the patient for transfer at this time. Patient remains with dynamic we stable. Pain is well controlled with fentanyl. Did discuss with patient and family if they wanted to be transferred for further workup which could be invasive in both patient and family would like to proceed. Vital Signs Vital signs: Initial Vital Signs Temperature 98.3 F 07/22/25 15:30 Temperature Source Temporal Artery Scan 07/22/25 15:30 Pulse Rate 76 07/22/25 15:30 Respiratory Rate 20 07/22/25 15:30 Blood Pressure 175/84 H 07/22/25 15:30 Blood Pressure Mean 114 H 07/22/25 15:30 Blood Pressure Position Sitting 07/22/25 15:30 Pulse Oximetry 99 07/22/25 15:30 Oxygen Delivery Method Room Air 07/22/25 15:30 Vital Signs Temperature 98.3 F 07/22/25 15:30 Pulse Rate 76 07/22/25 15:30 Respiratory Rate 20 07/22/25 15:30 Blood Pressure 175/84 H 07/22/25 15:30 Pulse Oximetry 99 07/22/25 15:30 Oxygen Delivery Method Room Air 07/22/25 15:30 Temperature 98.3 F 07/22/25 15:30 Pulse Rate 85 07/22/25 19:27 Respiratory Rate 18 07/22/25 19:27 Blood Pressure 179/89 H 07/22/25 19:27 Pulse Oximetry 98 07/22/25 19:27 Oxygen Delivery Method Room Air 07/22/25 19:27 Medications Administered Medications: Discontinued Medications Generic Name Dose Route Start Last Admin Trade Name Freq PRN Reason Stop Dose Admin Fentanyl 50 mcg 07/22/25 15:45 07/22/25 16:10 Fentanyl 100 Mcg/2 Ml Inj IVP 07/22/25 15:46 50 mcg ONCE ONE Administration Ondansetron HCl 4 mg 07/22/25 15:45 07/22/25 16:08 Ondansetron 2 Mg/Ml Inj IVP 07/22/25 15:46 4 mg ONCE ONE Administration Medical Decision Making MDM Narrative Medical decision making narrative: 89-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 Patient is anticoagulated. Will transfer to [facility] for further management. Lab Data Lab results reviewed: Yes I reviewed the patient's lab results Labs: Lab Results 07/22/25 Range/Units 16:27 WBC 14.14 H (4.50-11.00) K/uL RBC 3.42 L (4.00-5.20) m/uL Hgb 10.6 L (12.0-16.0) gm/dL Hct 31.3 L (33.0-51.0) % MCV 92 (80-100) fL MCH 31 (26-34) pg MCHC 34 (32-36) gm/dL RDW Coeff of Tyra 14.1 (11.5-15.5) % Plt Count 169 (140-440) K/uL Neut % (Auto) 92.8 H (42.0-72.0) % Lymph % (Auto) 2.3 L (20-44) % [place] % (Auto) 4.4 (0.0-11.0) % Eos % (Auto) 0.0 (0.0-7.0) % Baso % (Auto) 0.1 (0.0-3.0) % Neut # (Auto) 13.10 H (1.7-7.0) K/uL Lymph # (Auto) 0.30 L (0.90-2.90) K/uL [place] # (Auto) 0.60 (0.00-0.90) K/UL Eos # (Auto) 0.00 (0.00-0.50) K/uL Baso # (Auto) 0.00 (0.00-0.30) K/uL Abs Immat Gran (auto) 0.10 (0.00-0.30) K/uL Imm/Tot Granulo (auto) 0.4 % Sodium 137 (135-149) mmol/L Potassium 4.9 (3.6-5.1) mmol/L Chloride 109 (96-114) mmol/L Carbon Dioxide 10 L (20-32) mmol/L Anion Gap 18 H (7-15) mEq/L BUN 54 H (7-30) mg/dL Creatinine 2.6 H (0.5-1.5) mg/dL Estimated GFR 17 ml/min Glucose 216 H (60-115) mg/dL Lactate 1.5 (0.5-1.9) mmol/L Calcium 9.2 (8.4-10.6) mg/dL C-Reactive Protein 2.9 H (0.5-1.0) mg/dL Imaging Data CT scan - abdomen: Attestation: I have reviewed the pertinent imaging results. Radiologist's impression: TECHNIQUE: CT abdomen and pelvis without contrast. COMPARISON: CT abdomen and pelvis on July 22, 2025 performed earlier today FINDINGS: Lower chest: Dependent atelectasis. Cardiomegaly. Mitral annular calcifications. Coronary stent/calcification. Calcification of the descending thoracic aorta. No basilar effusion. Evaluation of the visceral organs is limited due to the lack of intravenous contrast. Liver: Non cirrhotic morphology. No contour deforming mass.. Gallbladder and bile ducts: No stones or inflammation. No biliary dilatation. Pancreas: Unremarkable.. Spleen: Normal in size.. Adrenal glands: No nodules.. Kidneys: Compared to earlier same day CT, similar appearance of the left-sided atrophic kidney with lower pole hyperdense measuring 1.6 cm. There is hyperdense material within the collecting system with masslike appearance with moderate to severe hydronephrosis. No significant perinephric fat stranding. Punctate nephrolith in the left interpolar region measuring 3 mm. Right kidney demonstrates no hydronephrosis or nephrolithiasis. GI tract: Nonobstructive bowel. Normal in caliber. No sign of mass or inflammation. Normal appendix. Vasculature: Abdominal aorta is normal in caliber. Moderate to marked calcification of the abdominal aorta and branch vessels. Tortuous abdominal aorta. Lymph nodes: No lymphadenopathy. Peritoneum/Abdominal Wall: Soft tissue stranding about the bilateral hips, left slightly greater than right with mild body wall anasarca. No sign of mass or infiltration. No free air or significant free fluid. Pelvis: Previously seen hematoma in the bladder is no longer seen. No pelvic masses. Punctate foci of air in the bladder. Bones: No acute fracture. No aggressive appearing lytic or blastic osseous lesion. Diffuse osseous demineralization. Marked multilevel degenerative changes of the spine. IMPRESSION: 1. Compared to earlier same day CT, similar appearance of the left-sided atrophic kidney with hyperdense lesion measuring 1.6 cm which is indeterminate. As before, there is hyperdense material within the collecting system with masslike appearance and moderate to severe hydronephrosis. Findings are suspicious for a neoplasm such as RCC with associated hematuria and hydronephrosis. If there is clinical suspicion for hematuria and active bleeding, recommend a multiphase CT for further evaluation. 2. Previously seen hematoma in the bladder has resolved. Punctate focus of gas within the bladder which may be secondary to recent instrumentation or infection. Discharge Plan Discharge Clinical Impression: Renal neoplasm, Hematuria Patient Disposition: Xfer [facility] Condition: Stable Prescriptions: No Action losartan 100 mg tablet 100 mg PO QDAY Qty: 90 3RF simvastatin 20 mg tablet 20 mg PO QHS Qty: 90 3RF ciprofloxacin HCl [Cipro] 250 mg tablet 250 mg PO BID Qty: 10 0RF spironolactone 25 mg tablet 25 mg PO QHS Qty: 30 0RF (DME) Ultra-Light Rollator Misc See Rx Instructions .Route Qty: 1 0RF Rx Instructions: As directed furosemide [Lasix] 20 mg tablet 20 mg PO QAM Qty: 90 1RF warfarin 5 mg tablet 2.5 mg PO QDAY Qty: 30 0RF Protocol: Dose Management Condition: Thursday Dose/Route: 2.5 mg Instruction: 0.5 x 5 mg tablets Condition: Thursday Dose/Route: 2.5 mg Instruction: 0.5 x 5 mg tablets Condition: Thursday Dose/Route: 2.5 mg Instruction: 0.5 x 5 mg tablets Condition: Thursday Dose/Route: 2.5 mg Instruction: 0.5 x 5 mg tablets Condition: Dose/Route: 2.5 mg Instruction: 0.5 x 5 mg tablets Condition: Thursday Dose/Route: 2.5 mg Instruction: 0.5 x 5 mg tablets Condition: Thursday Dose/Route: 2.5 mg Instruction: 0.5 x 5 mg tablets Protocol Text: Adjustment Start Date: Thursday07/03/25 INR Value: 2.8 INR Date: 06/30/25 Recheck Date: 08/02/25 Stand Alone Forms: [facility] Info Instructions
[2025-07-22 17:06] LABS: Chloride* 109 mmol/L (96-114)
[2025-07-22 17:07] LABS: Potassium* 4.9 mmol/L (3.6-5.1); Sodium* 137 mmol/L (135-149)
[2025-07-22 17:10] LABS: Anion Gap 18 mEq/L (7-15); Blood Urea Nitrogen* 54 mg/dL (7-30); Calcium* 9.2 mg/dL (8.4-10.6); Carbon Dioxide* 10 mmol/L (20-32); Creatinine* 2.6 mg/dL (0.5-1.5); Estimated Glomerular Filt Rate 17 ml/min; Glucose* 216 mg/dL (60-115)
[2025-07-22 17:14] VITALS: BP 186/73; PULSE 81; RESP 18; O2SAT 100
[2025-07-22 19:19] VITALS: O2SAT 98
[2025-07-22 19:27] VITALS: BP 179/89; PULSE 85; RESP 18; O2SAT 98
[2025-07-22 21:06] VITALS: BP 152/74; PULSE 79; RESP 18; TEMP 36.5; O2SAT 98
== END 2025-07-22 21:36 | disposition home or self-care (01) ==
PROVIDERS: Emergency Provider Family Medicine; PCP Family Medicine
DX: N39.0 Urinary tract infection, site not specified (principal); Z79.01 Long term (current) use of anticoagulants
CPT/HCPCS: 36415; 74176; 80048; 83605; 85025; 86140; 94761; 96374; 96375; 99284; J2405; J3010

== ENCOUNTER 2025-07-22 21:30 | Outpatient (CLI) | payer MEDICARE, BC, SELFPAY | END 2025-07-22 21:31 | disposition home or self-care (01) | LOC: AMB 07-26 10:35 | PROVIDERS: PCP Family Medicine; Visit Provider Family Medicine | DX: D49.519 Neoplasm of unspecified behavior of unspecified kidney (principal); R31.9 Hematuria, unspecified | CPT/HCPCS: A0425; A0427 ==